=== PATIENT | male | born 1960 | race Caucasian/White ===

== ENCOUNTER 2021-05-19 16:00 | Outpatient (CLI) | payer BC, SELFPAY ==
[2021-05-19 16:08] LABS: Bacteria 0 SEEN /hpf (None Seen); Mucous, Urine 0 SEEN /hpf (<or=2+); Red Blood Cells-Urine 0 SEEN /hpf (0-5); Squamous Epithelial Cells - UA 0 SEEN /hpf (0-5); White Blood Cells 0 SEEN /hpf (0-5)
[2021-05-19 17:55] LABS: Absolute Lymphocyte Count 3.25 X10^3/uL (0.83-4.51); Absolute Neutrophil Count 3.1 X10^3/uL (2.0-7.7); Basophil# 0.06 X10^3/uL; Basophil% 0.8 % (0-1); Eosinophils% 2.7 % (0-5); Hematocrit 46.1 % (40-54); Hemoglobin 15.7 g/dL (13.0-16.5); Lymphocyte # 3.25 X10^3/ul (0.83-4.51); Lymphocyte % 43.4 % (19-41); Mean Corp Hgb Conc 34.1 g/dL (32-36); Mean Corpuscular Volume 85.2 fL (80-94); Mean Platelet Vol. 10.2 fl (6.2-12.0); Monocyte# 0.85 X10^3/uL; Monocyte% 11.3 % (0-10); NRBC Flagged by Analyzer 0 % (0-5); Neutrophil # 3.09 X10^3/uL (2.7-7.7); Neutrophil % 41.3 % (47-70); Platelet Count 265 K/mm3 (150-450); RBC Distribution Width SD 43.1 fl (35.1-43.9); Red Blood Count 5.41 M/mm3 (4.6-6.2); White Blood Count 7.5 K/mm3 (4.4-11.0)
[2021-05-19 18:00] LABS: Color, Urine Yellow (Yellow); Glucose, Dipstick Normal (Normal); Ketone-Dipstick Negative (Negative); Leukocyte Esterase-Dipstick Negative /ul (Negative); Nitrite-Dipstick Negative (Negative); Occult Blood-Urine Negative /ul (Negative); Protein-Dipstick Negative (Negative); Urine Bilirubin Dipstick Negative (Negative); Urine Clarity Clear (Clear); Urine Urobilinogen Normal (Normal)
[2021-05-19 18:15] LABS: Hemoglobin A1c 5.6 % (3.8-5.6)
[2021-05-19 18:41] LABS: ALB/GLOB Ratio 0.9 RATIO (0.9-2.4); AST(SGOT) 21 U/L (15-37); Alanine Aminotransfer ALT/SGPT 37 U/L (16-61); Albumin, Serum 3.7 g/dL (3.2-5.0); Alkaline Phosphatase 74 U/L (45-117); Anion Gap 5 (5-15); BUN 14 mg/dL (7-18); Calcium,Total 8.8 mg/dL (8.5-10.1); Chloride 106 mmol/L (98-107); Cholesterol 165 mg/dL (200); Creatinine, Serum 0.88 mg/dL (0.70-1.30); EST Glomerular Filtration Rate 94 mL/min (>60); Est Glom Filt Rate - Afr Amer 113 mL/min (>60); Glucose 103 mg/dL (74-106); High Density Lipoprotein 38 mg/dL; Potassium 4.1 mmol/L (3.5-5.1); Protein, Total 7.7 g/dL (6.4-8.2); Sodium Level 139 mmol/L (136-145); Triglycerides 510 mg/dL
== END 2021-05-19 23:59 | disposition home or self-care (01) ==
LOC: MFPLAB 16:05
PROVIDERS: Visit Provider Family Medicine
DX: E78.5 Hyperlipidemia, unspecified (principal); E55.9 Vitamin D deficiency, unspecified; R73.02 Impaired glucose tolerance (oral)
CPT/HCPCS: 36415; 80053; 80061; 81001; 82306; 83036; 84443; 85025

== ENCOUNTER → 2021-06-10 | Outpatient (CLI) | payer BC, SELFPAY ==
--- NOTE | 2021-06-10 15:16 | CT_ITS ---
HISTORY: Nicotine dependence. Quit 2008, smoked 2 PPD 40 years, mild COPD. TECHNIQUE: Helically acquired images were obtained of the chest without contrast. A radiation dose optimization technique was used for this scan. # of images incl. paperwork: [phone]. COMPARISON: None. FINDINGS: LARGE AIRWAYS: Clear. LUNGS: Moderate emphysema with mild reticular scarring. Mild right middle lobe atelectasis. Noncalcified 5 mm right lower lobe nodule. PLEURA: No pleural effusion. HEART AND PERICARDIUM: Heart within normal limits in size. No pericardial effusion. Coronary artery calcification present. VESSELS: Thoracic aorta nondilated. MEDIASTINUM AND KELLY: No pathologically enlarged lymphadenopathy. Small calcified mediastinal lymph nodes. UPPER ABDOMEN: 2.5 cm cyst in the left hepatic lobe. BONES: Intact. CT/Low Dose CT Lung Screening IMPRESSION: 5 mm right lower lobe pulmonary nodule on a background of moderate emphysema. Lung-RADS category 2: Benign appearance. Continue annual screening with low-dose CT. Individualized dose optimization techniques were used for this CT. at 1557 Reported and signed by: Jahaira Hartley MD Electronically Signed: Jahaira Hartley MD at 15:56 EDT ,
== END | disposition home or self-care (01) ==
LOC: CT 15:13
PROVIDERS: PCP Family Medicine; Referring Provider Family Medicine; Visit Provider Family Medicine
DX: Z87.891 Personal history of nicotine dependence (principal)
CPT/HCPCS: 71271

== ENCOUNTER 2021-06-12 08:13 | Outpatient (CLI) | payer BC, SELFPAY ==
[2021-06-12 10:11] LABS: Cholesterol 149 mg/dL (200); High Density Lipoprotein 45 mg/dL; Triglycerides 98 mg/dL; Very Low Density Lipoprotein 20 mg/dL (5-40)
== END 2021-06-12 23:59 | disposition home or self-care (01) ==
LOC: MFPLAB 08:17
PROVIDERS: PCP Family Medicine; Referring Provider Family Medicine; Visit Provider Family Medicine
DX: Z00.00 Encounter for general adult medical examination without abnormal findings (principal)
CPT/HCPCS: 36415; 80061

== ENCOUNTER → 2021-07-10 | Outpatient (CLI) | payer BC, SELFPAY ==
--- NOTE | 2021-07-10 12:08 | US_ITS ---
STUDY: ULTRASOUND - URINARY BLADDER REASON FOR EXAM: Male, 61 years old. URINE RETENTION TECHNIQUE: Ultrasound evaluation of the urinary bladder was performed with real-time and static riley-scale imaging. COMPARISON: None. FINDINGS: There is no right UVJ calculus. There is a visualized right ureteral jet. There is no left UVJ calculus. There is a visualized left ureteral jet. The distended volume of the urinary bladder is 325 ml. The empty volume of the urinary bladder is 183 ml. The bladder wall is within normal limits. The bladder wall measures 3.5 mm. There is no demonstrated bladder wall mass lesion. There are no demonstrated bladder calculi. US/Post Void Residual Bladder IMPRESSION: Small to moderate post residual volume. Electronically Signed: Nasim Lozano MD at 13:51 EDT ,
== END | disposition home or self-care (01) ==
LOC: US 12:02
PROVIDERS: PCP Family Medicine; Visit Provider Family Medicine
DX: R33.9 Retention of urine, unspecified (principal)
CPT/HCPCS: 51798

== ENCOUNTER → 2021-07-15 | Outpatient (CLI) | payer BC, SELFPAY | END | disposition home or self-care (01) | LOC: LABSPEC 17:49 | PROVIDERS: PCP Family Medicine; Visit Provider Family Medicine | DX: U07.1 COVID-19 (principal) | CPT/HCPCS: 87635; U0003; U0005 ==

== ENCOUNTER → 2021-07-15 | Outpatient (CLI) | payer BC, SELFPAY ==
[2021-07-15 16:44] LABS: PSA,Total - Annual Screen 1.37 ng/mL (0.00-4.00)
== END | disposition home or self-care (01) ==
PROVIDERS: PCP Family Medicine; Referring Provider Family Medicine; Visit Provider Urology
DX: U07.1 COVID-19 (principal); Z12.5 Encounter for screening for malignant neoplasm of prostate
CPT/HCPCS: 36415; 84153; 87635; G0103; U0003; U0005

== ENCOUNTER → 2021-10-15 | Outpatient (CLI) | payer BC, SELFPAY ==
[2021-10-15 10:23] LABS: Absolute Lymphocyte Count 2.24 X10^3/uL (0.83-4.51); Absolute Neutrophil Count 2.4 X10^3/uL (2.0-7.7); Basophil# 0.05 X10^3/uL; Basophil% 0.9 % (0-1); Eosinophil# 0.14 X10^3/uL; Eosinophils% 2.6 % (0-5); Hematocrit 44.5 % (40-54); Hemoglobin 14.9 g/dL (13.0-16.5); Lymphocyte # 2.24 X10^3/ul (0.83-4.51); Lymphocyte % 41.1 % (19-41); Mean Corp Hgb Conc 33.5 g/dL (32-36); Mean Corpuscular Hgb 28.9 pg (27.0-32.0); Mean Corpuscular Volume 86.4 fL (80-94); Mean Platelet Vol. 10.1 fl (6.2-12.0); Monocyte# 0.56 X10^3/uL; Monocyte% 10.3 % (0-10); NRBC Flagged by Analyzer 0 % (0-5); Neutrophil # 2.44 X10^3/uL (2.7-7.7); Neutrophil % 44.7 % (47-70); Platelet Count 195 K/mm3 (150-450); RBC Distribution Width CV 13.7 % (11.6-14.6); RBC Distribution Width SD 43.5 fl (35.1-43.9); Red Blood Count 5.15 M/mm3 (4.6-6.2); White Blood Count 5.5 K/mm3 (4.4-11.0)
[2021-10-15 10:39] LABS: AST(SGOT) 18 U/L (15-37); Alanine Aminotransfer ALT/SGPT 29 U/L (16-61); Albumin, Serum 3.5 g/dL (3.2-5.0); Alkaline Phosphatase 70 U/L (45-117); Anion Gap 4 (5-15); BUN 11 mg/dL (7-18); BUN/Creat Ratio 11.9 RATIO (10-20); Calcium,Total 8.7 mg/dL (8.5-10.1); Chloride 110 mmol/L (98-107); Cholesterol 136 mg/dL (200); Creatinine, Serum 0.93 mg/dL (0.70-1.30); EST Glomerular Filtration Rate 87 mL/min (>60); Est Glom Filt Rate - Afr Amer 106 mL/min (>60); Globulin 3.5 g/dL (2.2-4.2); Glucose 93 mg/dL (74-106); High Density Lipoprotein 42 mg/dL; Potassium 4.1 mmol/L (3.5-5.1); Sodium Level 140 mmol/L (136-145); Triglycerides 113 mg/dL; Very Low Density Lipoprotein 23 mg/dL (5-40)
[2021-10-15 10:40] LABS: Vitamin D,25 Hydroxy 44.9 ng/mL
[2021-10-15 10:56] LABS: Hemoglobin A1c 5.7 % (3.8-5.6)
== END | disposition home or self-care (01) ==
LOC: MFPLAB 08:10
PROVIDERS: PCP Family Medicine; Referring Provider Family Medicine; Visit Provider Family Medicine
DX: E78.5 Hyperlipidemia, unspecified (principal); E55.9 Vitamin D deficiency, unspecified; R73.02 Impaired glucose tolerance (oral)
CPT/HCPCS: 36415; 80053; 80061; 82306; 83036; 85025

== ENCOUNTER 2021-12-09 05:10 | Day surgery (SDC) | payer BC, SELFPAY ==
[2021-12-09] VITALS (12 sets, daily range): BP systolic 90–136; BP diastolic 61–98; PULSE 56–66; RESP 16; TEMP 36.1–36.5; O2SAT 96–100; BMI 25.0
[2021-12-09] MEDS: Lactated Ringers 1,000 ML 15 ML IV (06:12)
--- NOTE | 2021-12-09 06:12 | HP.PCM_ITS ---
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 Luis Eduardo Delcid MD) COPD (chronic obstructive pulmonary disease) Former smoker Gastric reflux High cholesterol History of hiatal hernia Prostate disease Wears glasses Wears partial dentures Surgical History? History of esophagogastroduodenoscopy (EGD) Hx of colonoscopy Hx of inguinal hernia repair Hx of vasectomy Family History?(Updated 11/10/21 @ 14:29 by Radha Batista) Father Cancer ?? ? lung Social History Smoking Status:? Former smoker HPI HPI HPI: 61-year-old gentleman who is being referred by Dr Spencer Rahman because of the patient's history of biopsy identified Esquivel's esophagus.? Gastroesophageal reflux disease symptoms started 2016.? He has been on omeprazole therapy for approximately 4 to 5 years.? By report the patient 3 years ago in the [place] area had an upper endoscopy demonstrating a hiatal hernia and Esquivel's esophagus.? There are results from [facility] dated September 23, 2018 with the patient underwent an upper endoscopy.? Report is that multiple tertiary contractions were identified.? There is a 2 cm hiatal hernia and a mildly irregular SC junction about 3 mm tongues.? The patient also had a colonoscopy with a 3 to 4 mm flat polyp biopsied at the hepatic flexure.? Esophageal biopsy showed focal intestinal metaplasia with Esquivel's esophagus negative for dysplasia.? The colon demonstrated a serrated adenoma.? There was also a sigmoid polyp which was hyperplastic. He does not have any current complaints.? He does chronically take pantoprazole 40 mg daily.? He has been on a PPI for at least 5 years. He denies bright red blood per rectum or melena.? No abdominal pain.? He otherwise enjoys good health. ROS General General: No weight change, appetite, fatigue, colon cancer, breast cancer or weakness HEENT HEENT: No difficulty swallowing, eye injury, eye surgery, swollen glands or hoarseness Endo Endocrine: No thyroid disease, diabetes mellitus, thyroid cancer, Hair loss, heat intolerance or cold intolerance Skin Skin: No rash or changing moles Musc Musculoskeletal: No back problems, arthritis, rheumatoid arthritis, gout or joint pain Cardio Cardiovascular: No murmur, pacemaker, heart disease, atrial fibrillation, high blood pressure, heart attack, heart stent, palpitations, shortness of breat with exertion or chest pain Psych Psychiatric: No depression, anxiety or hearing voices Resp Respiratory: No shortness of breath, No sleep apnea, No cough, No COPD, No asthma, No emphysema and No wheezing Gastro Gastrointestinal: No abdominal pain, No nausea or vomiting, No diarrhea, No constipation, No blood in stool, Yes acid reflux, No hemorrhoids, No ulcers, No gallbladder problem and No black,tarry stools Bill Hematologic: No blood thinners, No blood disorders, No bleeding, No anemia and No blood clots Neuro Neurologic: No system reviewed and no additional complaints, except as documented, No as per HPI, No abnormal gait, No abnormal hearing, No abnormal movements, No abnormal speech, No behavioral changes, No burning sensations, No confusion, No convulsions, No disequilibrium, No dizziness, No localized weakness, No frequent falls, No headache(s), No lack of coordination, No loss of vision, No memory loss, No numbness, No other visual disturbances, No radicular pain, No restless legs, No sensory deficit, No syncope, No tingling, No tremor(s), No weakness and No other Exam Const General: cooperative, healthy appearing and comfortable Orientation: alert [facility] Head: normal to inspection Eyes General: appearance normal, both eyes and all related structures Neck Neck: normal visual inspection Chest Chest palpation & inspection: normal inspection of the chest Resp Effort & Inspection: normal respiratory effort Auscultation: clear to auscultation bilaterally Cardio Rate: regular rate Rhythm: regular rhythm GI Inspection: normal to inspection Palpation: soft and no hepatosplenomegaly Musc Cervical Spine: normal cervical lordosis Skin General: no rashes or lesions noted Neuro General: patient alert and patient awake Extrem General: no calf tenderness Psych Appearance: grossly normal Assessment and Plan Assessment and Plan (1) 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: ?Status:?Acute (2) Hiatal hernia: ?Status:?Acute (3) Personal history of colonic polyps: ?Status:?Acute Plan The patient was really notified that he is not yet due for routine follow-up colonoscopy for 2 more years.? His notes were reviewed reminding him he has a history of colon polyps that 2 years will need a follow-up colonoscopy He has a history of Esquivel's short segment with no dysplasia.? I recommend to him an esophagogastroduodenoscopy with biopsy.? I piquantly of I cannot accomplish this with IV sedation.? I also took the opportunity discussed with him additional treatment options.? We discussed potential surgical treatment options laparoscopic repair of his hiatal hernia and a antireflux procedure.? There is likely would mean we can get him off of his proton pump inhibitor and the potential side effects of long-term use of that medication and perhaps utilize only a H2 reginaldo.? He is aware however that there are no good long-term studies currently demonstrating efficacy.? He would need to assist in the de cision as to how important it is to him to be able to come off of his proton pump inhibitors which she has been on for at least 5 years.? He is enjoying good health and feels that he has good longevity left. He has had an opportunity to ask and have questions answered.? We will schedule proceed with the upper endoscopy and then further testing pending the patient's considerations. I appreciate the opportunity of assisting with the surgical care ?copy: Dr Spencer Delcid M.D., F.A.C.S I have re-examined the patient. There are no clinical changes since date of exam. Luis Eduardo Delcid M.D., F.A.C.S.
--- NOTE | 2021-12-09 06:30 | IMM_PTH ---
PATIENT: LIA BUSTAMANTE LOC: EN U#:[id number] AGE/SX: 61/M ROOM: RE12/09/[address]: Dr. Luis Eduardo Delcid MD : 1960 BED: DIS: 12/09/2021 SPEC #: [id number] RECD: 12/09/21 12:46 STATUS: ROBERTO REQ #: [id number] GIL: 12/09/21 06:[address]: Luis Eduardo Delcid DEPT: IMMUNOHISTOCHEMISTRY RECD BY: Bibiana Santacruz ENTERED: 12/09/21 12:47 SP TYPE: IMMUNO OTHR DR: Dr. Spencer Rahman MD Tissues: A - Stomach, NOS Procedures: H Pylori (initial) PHYSICIAN & INSTITUTION [address] [address] SPECIMEN INFORMATION: Tissue Source: A ? Antral biopsy Clinical Info: History of Esquivel?s esophagus, hiatal hernia Specimen Number: [id number] CPT code: 92088 METHODOLOGY: Deparaffinized sections of prefer/formalin-fixed tissue or PAP/DQ stained slides are incubated with monoclonal/polyclonal antibodies/oligonucleotide probes. Localization is made via biotin free immunoperoxidase method. Appropriate controls are performed and reacted as expected. Results on target cell population are indicated in the following table: RESULTS: ANTIBODY / CLONE RESULT Block A H Pylori (polyclonal) negative These tests were developed and their performance characteristics determined by [facility]. They may not have been cleared or approved by the U.S. Food and Drug Administration. The FDA has determined that such clearance or approval is not necessary. The above immunohistochemical/dualISH markers are ordered and reviewed by the Pathologist. INTERPRETATION: A. Antral biopsy: Negative for Helicobacter pylori organisms. MIKE:saul 12/10/2021
--- NOTE | 2021-12-09 06:30 | EGD_PTH ---
PATIENT: LIA BUSTAMANTE LOC: EN U#:[id number] AGE/SX: 61/M ROOM: RE12/09/[address]: Dr. Luis Eduardo Delcid MD : 1960 BED: DIS: 12/09/2021 SPEC #: [id number] RECD: 12/09/21 10:34 STATUS: ROBERTO REAimee #: [id number] GIL: 12/09/21 06:[address]: Luis Eduardo Delcid DEPT: SURGICAL PATHOLOGY RECD BY: Francisca Phillips ENTERED: 12/09/21 12:17 SP TYPE: EGD BIOPSY OT DR: Dr. Spencer Rahman MD Tissues: A - Gastric mucous membrane B - Esophagus, NOS C - Esophagus, NOS Procedures: Special Stain Group II Surgery Specimen Level IV Alcian Blue/PAS (control) HEADER OPERATION: EGD (MOD) and biopsy PRE-OP DIAGNOSIS: History of Esquivel?s esophagus, hiatal hernia TISSUE SUBMITTED: A ? Antral biopsy, H. pylori, B ? Distal esophagus biopsy, C ? Mid esophageal biopsy MICROSCOPIC DIAGNOSIS A. Antral biopsy: Mild gastritis. See microscopic description and comment. B. Distal esophagus, biopsy: Fragments of gastroesophageal mucosa with chronic inflammation and changes consistent with gastroesophageal reflux disease. Intestinal metaplasia (goblet cell metaplasia) not identified. See comment. C. Mid esophagus, biopsy: Fragments of squamous epithelium with minimal chronic inflammation. SJ:saul 12/10/2021 COMMENT A. The results of immunohistochemistry for Helicobacter pylori will be reported separately ([id number]). B. Alcian blue/PAS stain with matched control is used in the evaluation of the specimen. The specimen predominantly consists of squamous mucosa. Mild increase of eosinophils (up to 10 per high power field) are also noted suggestive of eosinophilic esophagitis. MICROSCOPIC DESCRIPTION Slides are reviewed. A. The specimen shows fragments of gastric mucosa with chronic inflammatory cell infiltrates in the lamina propria consisting of lymphocytes and plasma cells, consistent with mild chronic gastritis. GROSS DESCRIPTION A - Received in fixative is one container labeled with the patient's name and designated antral biopsy. The specimen consists of one irregular fragment of light hooker soft tissue that measures 0.3 x 0.3 x 0.1 cm. The specimen is totally submitted in one cassette. B - Received in fixative is one container labeled with the patient's name and designated distal esophagus biopsy. The specimen consists of multiple irregular fragments of light hooker soft tissue that in aggregate measure 1 x 0.8 x 0.1 cm. The specimen is totally submitted in one cassette. C - Received in fixative is one container labeled with the patient's name and designated mid esophageal biopsy. The specimen consists of two irregular fragments of light hooker soft tissue that in aggregate measure 0.5 x 0.2 x 0.1 cm. The specimen is totally submitted in one cassette. / SJ:rg 12/09/2021 TC:3 CPT: 27944 x3, 11623
--- NOTE | 2021-12-09 06:46 | OP.EGD_ITS ---
Patient Name: Tacho Bustillos Procedure Date: 12/09/2021 6:18 AM Date of : 1960 Age: 61 Procedure: Upper GI endoscopy Indications: Follow-up of Esquivel's esophagus Providers: Luis Eduardo Delcid MD Medicines: Midazolam 3.5 mg IV, Meperidine 100 mg IV Complications: No immediate complications. Procedure: Pre-Anesthesia Assessment: - Prior to the procedure, a History and Physical was performed, and patient medications and allergies were reviewed. The patient's tolerance of previous anesthesia was also reviewed. The risks and benefits of the procedure and the sedation options and risks were discussed with the patient. All questions were answered, and informed consent was obtained. Prior Anticoagulants: The patient has taken no previous anticoagulant or antiplatelet agents. ASA Grade Assessment: II - A patient with mild systemic disease. After reviewing the risks and benefits, the patient was deemed in satisfactory condition to undergo the procedure. After obtaining informed consent, the endoscope was passed under direct vision. Throughout the procedure, the patient's blood pressure, pulse, and oxygen saturations were monitored continuously. The gastroscope was introduced through the mouth, and advanced to the second part of duodenum. The upper GI endoscopy was accomplished without difficulty. The patient tolerated the procedure well. Moderate Sedation: Moderate (conscious) sedation was personally administered by the endoscopist. The following parameters were monitored: oxygen saturation, heart rate, blood pressure, and response to care. Total physician intraservice time was 15 minutes. Scope In: 6:31:07 AM Scope Out: 6:39:34 AM Total Procedure Duration Time 0 hours 8 minutes 27 seconds Findings: LA Grade A (one or more mucosal breaks less than 5 mm, not extending between tops of 2 mucosal folds) esophagitis with no bleeding was found 39 cm from the incisors. Biopsies were taken with a cold forceps for histology. The middle third of the esophagus was normal. Biopsies were taken with a cold forceps for histology. A 4 cm hiatal hernia was present. Diffuse mildly erythematous mucosa without bleeding was found in the gastric antrum. Biopsies were taken with a cold forceps for histology. The examined duodenum was normal. Impression: - LA Grade A reflux esophagitis. Biopsied. - Normal middle third of esophagus. Biopsied. - 4 cm hiatal hernia. - Erythematous mucosa in the antrum. Biopsied. - Normal examined duodenum. Recommendation: - Discharge patient to home. - Resume previous diet. - Continue present medications. - Return to my office in 1 week if desired to discuss moderately large hiatal hernia and reflux pathology Procedure Code(s): --- Professional --- 38501, Esophagogastroduodenoscopy, flexible, transoral; with biopsy, single or multiple 67625, 59, Moderate sedation services provided by the same physician or other qualified health health care marketing specialist performing the diagnostic or therapeutic service that the sedation supports, requiring the presence of an independent trained observer to assist in the monitoring of the patient's level of consciousness and physiological status; initial 15 minutes of intraservice time, patient age 5 years or older Diagnosis Code(s): --- Professional --- K21.0, Gastro-esophageal reflux disease with esophagitis K22.70, 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 K44.9, Diaphragmatic hernia without obstruction or gangrene K31.89, Other diseases of stomach and duodenum CPT copyright 2017 [employer]. All rights reserved. The codes documented in this report are preliminary and upon manager human capital review may be revised to meet current compliance requirements. Luis Eduardo Delcid MD 12/09/2021 6:45:22 AM This report has been signed electronically. Number of Addenda: 0 Note Initiated On: 12/09/2021 6:18 AM
--- NOTE | 2021-12-09 06:47 | OP.CCLET_ITS ---
12/09/2021 Spencer Rahman [address] [place] [address] Re : Upper GI endoscopy procedure for Tacho [facility] Dear Dr. Rahman This procedure was performed on Thursday, December 09, 2021. My impressions and recommendations are as follows: Impressions : - LA Grade A reflux esophagitis. Biopsied. - Normal middle third of esophagus. Biopsied. - 4 cm hiatal hernia. - Erythematous mucosa in the antrum. Biopsied. - Normal examined duodenum. Recommendations : - Discharge patient to home. - Resume previous diet. - Continue present medications. - Return to my office in 1 week if desired to discuss moderately large hiatal hernia and reflux pathology My findings are described in the full procedure note, which is enclosed. If I can be of further assistance, please feel free to contact me at Doctor phone number(s): Work: . Sincerely, Luis Eduardo Delcid MD 12/09/2021 6:45:22 AM This report has been signed electronically.
== END 2021-12-09 08:18 | disposition home or self-care (01) ==
LOC: EN 05:10 → AC 05:15
PROVIDERS: PCP Family Medicine; Referring Provider Family Medicine; Visit Provider Surgery
PROC: (CPT 43239; principal; 2021-12-09 06:25)
DX: K44.9 Diaphragmatic hernia without obstruction or gangrene (principal); K29.50 Unspecified chronic gastritis without bleeding; K21.00 Gastro-esophageal reflux disease with esophagitis, without bleeding; K31.89 Other diseases of stomach and duodenum; Z79.899 Other long term (current) drug therapy; Z87.891 Personal history of nicotine dependence; Z86.010 Personal history of colon polyps
CPT/HCPCS: 43239; 88305; 88313; 88342; 99152; 99153; J7120

== ENCOUNTER 2021-12-24 09:03 | Observation (INO) | payer BC, SELFPAY ==
--- NOTE | 2021-10-30 10:03 | EKG12_ITS ---
Test Reason : PREOP Blood Pressure : / mmHG Vent. Rate : 063 BPM Atrial Rate : 063 BPM P-R Int : 142 ms QRS Dur : 092 ms QT Int : 406 ms P-R-T Axes : 067 010 058 degrees QTc Int : 415 ms Normal sinus rhythm Normal ECG Confirmed by FIDE HO, JEANNE ([id number]), film editor supervisor JOE CHAPMAN ([id number]) on 10/31/2021 2:24:27 PM Referred By: Marcos Smith Confirmed By:CHRISTIANO ELIZALDE MD
[2021-12-24] VITALS (8 sets, daily range): BP systolic 110–134; BP diastolic 69–82; PULSE 60–75; RESP 15–18; TEMP 36.1–36.6; O2SAT 93–100; BMI 25.7
[2021-12-24] MEDS: Lactated Ringers 1,000 ML 15 ML IV (08:05)
--- NOTE | 2021-12-24 08:52 | PCM.HP.STD ---
HPI - General HPI Narrative LIA BUSTAMANTE, is a 61 M who presents for a transurethral resection of the prostate for an enlarged obstructing prostate PFSH Medical History COPD (chronic obstructive pulmonary disease) Former smoker Gastric reflux High cholesterol History of hiatal hernia Prostate disease Wears glasses Wears partial dentures Home Medications atorvastatin 10 mg tablet 10 mg PO QHS HLD 10/29/21 [History Last Taken 12/23/21] calcium carbonate 600 mg calcium (1,500 mg) tablet 600 mg PO DAILY SUPPLEMENT 10/29/21 [History Last Taken 12/23/21] pantoprazole 40 mg tablet,delayed release 40 mg PO DAILY GERD 10/29/21 [History Last Taken 12/24/21 05:00] sildenafil 50 mg tablet 50 mg PO DAILY PRN Erectile Dysfunction 10/29/21 [History Last Taken 12/23/21] Allergy/AdvReac Type Severity Reaction Status Date / Time Penicillins Allergy Rash Verified 12/24/21 07:43 Family History (Updated 11/10/21 @ 14:29 by Radha Batista) Father Cancer lung Surgical History (Updated 12/17/21 @ 10:11 by Stacia Velázquez) History of esophagogastroduodenoscopy (EGD) Hx of colonoscopy Hx of inguinal hernia repair Hx of vasectomy Social History Smoking Status: Former smoker Vital Signs Vital Signs Vital Signs: 12/24/21 07:46 12/24/21 07:47 Temperature 97.0 F L Temperature Source Temporal Pulse Rate 61 Respiratory Rate 18 Respiratory Pattern Normal Blood Pressure 110/69 Blood Pressure Mean 82 Blood Pressure Source Monitor Blood Pressure Position Semi-Fowlers Blood Pressure Location Right Arm Pulse Ox 99 Oxygen Delivery Method Room Air Weight Weight: 76.657 kg Body Mass Index (BMI) 25.7
--- NOTE | 2021-12-24 08:55 | PCM.DC ---
Discharge Instructions Diet Discharge Diet: No restrictions Follow Up Care Please Follow Up With: Marcos Smith MD Test Results: Test results from this visit will be discussed in further detail at your follow-up appointment, if applicable. Discharge Plan Admission Primary Reason for Your Visit: [facility] Attending Provider: Marcos Smith Primary Care Provider: Spencer Rahamn Instructions Patient Instructions: [facility] Recovery Discharge Orders/Prescriptions Prescriptions: New ciprofloxacin HCl [Cipro] 500 mg tablet 500 mg PO BID Qty: 14 0RF Continued sildenafil 50 mg Tablet 50 mg PO DAILY PRN (Reason: Erectile Dysfunction) Rx Instructions: administer 30 minutes to 4 hours before activity atorvastatin 10 mg Tablet 10 mg PO QHS calcium carbonate 600 mg calcium (1,500 mg) Tablet 600 mg PO DAILY pantoprazole 40 mg Tablet,Delayed Release (Dr/Ec) 40 mg PO DAILY Referrals / Follow Up: Marcos Smith MD [Med Staff - Active Staff] - Spencer Rahman MD [Primary Care Provider] - Disposition Disposition (needs filled in before D/C Order can be placed): Home, Self Care
[2021-12-24] MEDS: Cefazolin 2 GM in 0.9% Normal Saline 100 ML IV (09:15)
--- NOTE | 2021-12-24 09:50 | PROS_PTH ---
PATIENT: LIA BUSTAMANTE LOC: MS3 U#:[id number] AGE/SX: 61/M ROOM: GA319 RE12/24/[address]: Dr. Marcos Smith MD : 1960 BED: 1 DIS: 12/25/2021 SPEC #: [id number] RECD: 12/24/21 13:46 STATUS: ROBERTO GALEAS #: [id number] GIL: 12/24/21 09:[address]: Marcos Smith DEPT: SURGICAL PATHOLOGY RECD BY: Francisca Phillips ENTERED: 12/25/21 09:00 SP TYPE: TURP OTHR DR: Dr. Spencer Rahman MD Tissues: Prostate, NOS Procedures: Surgery Specimen Level IV HEADER OPERATION: Cysto, TUR prostate, [employer] PRE-OP DIAGNOSIS: Enlarged obstructing prostate TISSUE SUBMITTED: Prostate tissue MICROSCOPIC DIAGNOSIS Prostate, transurethral resection: Benign nodular hyperplasia, glandular and stromal types. Chronic inflammation. AM:saul 12/26/2021 MICROSCOPIC DESCRIPTION Slides are reviewed. GROSS DESCRIPTION Received is one container labeled with the patient's name and designated prostate tissue. The specimen consists of multiple irregular fragments of pink-hooker, rubbery, soft tissue that in aggregate weigh 6.1 gm and measure in aggregate 4 x 5 x 0.6 cm. The entire specimen is submitted in four cassettes. / AM:saul 12/25/2021 TC:3 CPT: 66461
--- NOTE | 2021-12-24 09:55 | PCM.OPRPT ---
Report of Operation Date of Procedure: 12/24/21 Pre-Operative Diagnosis: BPH obstruction with a median lobe Post-Operative Diagnosis: Same Surgery/Procedure Performed:: Transurethral section of prostate Description of Surgical Findings:: In the preoperative setting I discussed with the patient how the surgery would be done with expect afterwards. We discussed how a prostate resection is done and we discussed the risk of the surgery including, bleeding, infection, retrograde ejaculation, changes with ejaculation or intercourse,. We discussed the possibility that the resection of the prostate may not alleviate his urinary symptoms. We discussed the small risk of developing scar tissue along the urethral channel and strictures. We also discussed the chance of the prostate could grow back and he may need further surgery or treatment in the future for prostate problems. Patient was taken back to the operating room, timeout procedure was performed, he was identified and marked and placed on the operating room table. He underwent general anesthesia. He was placed in dorsolithotomy position. Penis and testicles were prepped and draped in usual sterile fashion. Went into the bladder using the visual obturator with a resectoscope. Once inside the bladder identified the right and left ureteral orifice. I then identified the prostate and the anatomy of the prostate. He had a short length prostate but very obstructed with a large median lobe protruding into the bladder and some mild bilateral hypertrophy. I marked out the area of the sphincter and the verumontanum was identified. I then proceeded with the prostate resection first resected the median lobe. And then resected the right lobe of the prostate. Then to resect the left lobe of the prostate. I then resected the apical tissue of the prostate. This was a complete resection of all obstructive tissue to improve voiding and relieve obstruction. I then made sure that there was no injury to the sphincter or the verumontanum was still intact. At the end of the resection all the chips were Ellik out of the bladder. I then identified the left and right ureteral orifice and these were confirmed to be in good position and effluxing and not injured. The resectoscope was removed, a 22 Palestinian catheter was placed into the bladder on continuous irrigation. And the urine was fairly light pink color and draining normally. He was taken back to the PACU in good condition. Surgeon: Marcos Smith Type of Anesthesia: General Drains: 22 Palestinian three-way catheter Admit VTE Documentation VTE Present on Admission: No VTE Mechan Device Prophylaxis: SCD's VTE Pharm Prophylaxis ordered?: No
--- NOTE | 2021-12-24 13:59 | CASEMGMT ---
Social Work? SW in to pt room to verify Advanced Directives. Pt confirmed has HCPOA/LW. Pt named spouse, Joann, as agent. Pt made aware these documents are not on file and that pt can bring a copy in and drop off at Medical records in future if willing to do so. Pt voiced understanding. ? FINN Deras?
[2021-12-24] MEDS: 0.9% Normal Saline 1,000 ML 125 ML IV (16:52)
[2021-12-24] MEDS: Ciprofloxacin 400 MG/200 ML BAG 200 MG IV (16:52)
[2021-12-24] MEDS: Docusate Sodium 100 MG Capsule 200 MG PO (20:58)
[2021-12-24] MEDS: Atorvastatin Calcium 10 MG Tablet PO (20:59)
[2021-12-25] VITALS: BP 110/70; PULSE 74; RESP 16; TEMP 36.6; O2SAT 95; BMI 25.7
[2021-12-25] MEDS: 0.9% Normal Saline 1,000 ML 125 ML IV (03:10)
[2021-12-25 04:00] VITALS: BP 114/69; PULSE 84; RESP 16; TEMP 36.9; O2SAT 94; BMI 25.7
[2021-12-25] MEDS: Ciprofloxacin 400 MG/200 ML BAG 200 MG IV (04:51)
--- NOTE | 2021-12-25 07:45 | PCM.PN.BLA ---
Progress Note Status post TURP urine is clear, DC Nicole and he can go home after voids.
[2021-12-25 08:03] VITALS: BP 133/85; PULSE 78; RESP 16; TEMP 36.5; O2SAT 96
[2021-12-25] MEDS: Pantoprazole Sodium 40 MG Tablet PO (09:20)
--- NOTE | 2021-12-25 09:28 | NURSING ---
Pt has voided twice since removal of flores, noted clot on first void, otherwise has not had any. IV removed, pt instructed to call for DC.
== END 2021-12-25 10:42 | disposition home or self-care (01) ==
LOC: SDC 10:21 → MS3 10:21
PROVIDERS: Admitting Provider Urology; PCP Family Medicine; Referring Provider Urology; Visit Provider Urology
PROC: (CPT 52601; principal; 2021-12-24 09:40)
DX: N40.1 Benign prostatic hyperplasia with lower urinary tract symptoms (principal); J43.9 Emphysema, unspecified; Z87.891 Personal history of nicotine dependence; E78.00 Pure hypercholesterolemia, unspecified; N13.8 Other obstructive and reflux uropathy; R33.8 Other retention of urine; R35.0 Frequency of micturition; K44.9 Diaphragmatic hernia without obstruction or gangrene; K21.9 Gastro-esophageal reflux disease without esophagitis; Z79.899 Other long term (current) drug therapy
CPT/HCPCS: 52601; 00914; 88305; 93005; 96361; 96365; 96366; 99218; 99251; J7030; J7120; G0378; G0463; J0744; J2405

== ENCOUNTER 2021-12-26 10:08 | Emergency (ER) | payer BC, SELFPAY ==
[2021-12-26 10:08] VITALS: BP 149/98; PULSE 77; RESP 16; TEMP 36.2; O2SAT 97; BMI 26.7
[2021-12-26 10:11] VITALS: BMI 26.7
--- NOTE | 2021-12-26 10:37 | EKG12_ITS ---
Test Reason : NEURO Blood Pressure : / mmHG Vent. Rate : 067 BPM Atrial Rate : 067 BPM P-R Int : 150 ms QRS Dur : 086 ms QT Int : 382 ms P-R-T Axes : 061 -10 052 degrees QTc Int : 403 ms Normal sinus rhythm Normal ECG Confirmed by AMY HO, DIANN ([id number]), deputy editor in chief JOE CHAPMAN ([id number]) on 12/29/2021 1:20:07 PM Referred By: Confirmed By:DIANN REYES MD
--- NOTE | 2021-12-26 10:37 | CT_ITS ---
STUDY: CTA HEAD AND NECK WITH CONTRAST REASON FOR EXAM: Male, 61 years old. Right facial droop RADIATION DOSAGE (If Supplied By Facility): CTDIvol = ( 31.03 ) mGy, DLP = ( 1608.68 ) mGycm TECHNIQUE: CT angiography was performed with a multi-detector CT scanner. Data acquisition was obtained from the skull base through the vertex following intravenous administration of IV 100mL Isovue-370. MIP images were reconstructed from the axial data set. Post-processing of the angiographic images was performed, with multiplanar reformation and 3D reconstruction. Individualized dose optimization techniques were used for this CT. COMPARISON: No relevant priors. FINDINGS: Normal bilateral petrous carotid arteries. Normal right cavernous carotid artery with a normal supraclinoid bifurcation. Normal left cavernous carotid artery with a normal supraclinoid bifurcation. Normal right A1 segments of the anterior cerebral artery. Normal left A1 segments of the anterior cerebral artery. Normal intact anterior communicating artery (ACOM). Normal bilateral A2 segments of the anterior cerebral arteries. Normal right M1 and M2 segments of the middle cerebral arteries, with a normal M1 bifurcation. Normal left M1 and M2 segments of the middle cerebral arteries, with a normal M1 bifurcation. Normal right posterior communicating artery (PCOM). Normal left posterior communicating artery (PCOM). Normal bilateral vertebral arteries. Normal basilar artery with a normal basilar bifurcation. The visualized bilateral superior cerebellar (SCA) arteries are normal. Normal bilateral P1, P2 and visualized P3 segments of the posterior cerebral arteries. There is no demonstrated aneurysm of the [place]. Mild degree of cerebral atrophy. AORTIC ARCH: Normal visualized aortic arch. Normal origins of the brachiocephalic, left common carotid, and left subclavian arteries. RIGHT CAROTID ARTERIES: Normal right common carotid artery (CCA). Normal right common carotid bulb. Normal origin of the right internal carotid (ICA) artery without a hemodynamically significant stenosis. Normal visualized cervical portion of the right internal carotid artery. Normal origin of the right external carotid artery (ECA). LEFT CAROTID ARTERIES: Normal left common carotid artery (CCA). Normal left common carotid bulb. Normal origin of the left internal carotid (ICA) artery without a hemodynamically significant stenosis. Normal visualized cervical portion of the left internal carotid artery. Normal origin of the left external carotid artery (ECA). VERTEBRAL ARTERIES: Normal bilateral vertebral arteries. CT/CTA Head AND Neck W/ Contrast IMPRESSION: Normal CTA Head and neck with contrast. Electronically Signed: Nasim Lozano MD at 11:59 EDT ,
--- NOTE | 2021-12-26 10:38 | EDS_ITS ---
HPI History of Present Illness Chief Complaint: Neuro S/Sx Detail of Chief Complaint: Facial droop Informant: patient and spouse/S.O. Onset/Context/Timing Onset: Yesterday Context: Gradual Onset Timing: Continuous Quality and Location: Positive for Right Facial Droop Current Severity: Mild Maximum Severity: Mild Associated Symptoms Associated Symptoms: Positive for Headache; Negative for Nausea, Vomiting or Chest Pain Narrative Narrative: 61-year-old male history of BPH had TURP procedure done on Wednesday stayed overnight here in the hospital was discharged on . Yesterday around 2 PM started noticing some right-sided facial droop. Mild headache. No falls or trauma. No blood thinners. No prior history. No trouble walking. No weakness or numbness in his arms or legs. No prior history of Cortez's palsy. No prior history of stroke or mini stroke. Denies any other symptoms or complaints. Prior similar symptoms: No Recent Illness/Hospitalization: No PFSH PFSH Medical History COPD (chronic obstructive pulmonary disease) Former smoker Gastric reflux High cholesterol History of hiatal hernia Prostate disease Wears glasses Wears partial dentures Home Medications atorvastatin 10 mg tablet 10 mg PO QHS HLD 10/29/21 [History Last Taken 12/23/21] calcium carbonate 600 mg calcium (1,500 mg) tablet 600 mg PO DAILY SUPPLEMENT 10/29/21 [History Last Taken 12/23/21] pantoprazole 40 mg tablet,delayed release 40 mg PO DAILY GERD 10/29/21 [History Last Taken 12/24/21 05:00] sildenafil 50 mg tablet 50 mg PO DAILY PRN Erectile Dysfunction 10/29/21 [History Last Taken 12/23/21] ciprofloxacin HCl 500 mg tablet (Cipro) 500 mg PO BID #14 tabs 12/24/21 [Rx Last Taken Unknown] acyclovir 800 mg tablet 800 mg PO 5X/DAY #35 tabs 12/26/21 [Rx Last Taken Unknown] prednisone 20 mg tablet 40 mg PO DAILY 7 days #14 tabs 12/26/21 [Rx Last Taken Unknown] Allergy/AdvReac Type Severity Reaction Status Date / Time Penicillins Allergy Rash Verified 12/24/21 07:43 Family History Father Cancer lung Surgical History History of esophagogastroduodenoscopy (EGD) Hx of colonoscopy Hx of inguinal hernia repair Hx of vasectomy Social History Smoking Status: Former smoker ROS ROS ED ROS Narrative Right facial droop. Review of Systems ROS Unobtainable: Denies due to encephalopathy Constitutional Constitutional ED: Denies chills or fever(s) Eyes Eyes: Denies blurry vision Cardiovascular Cardiovascular: Denies chest pain Respiratory/Chest Respiratory/Chest: Denies cough or dyspnea Gastrointestinal Gastrointestinal: Denies abdominal pain Genitourinary Genitourinary ED: Denies dysuria or hematuria Musculoskeletal Musculoskeletal: Denies arthralgias Integumentary Denies abscess Neurologic Neurologic: Reports headache(s) Psychiatric Psychiatric: Denies anxiety Endocrine Endocrinology: Denies polydipsia Hematologic/Lymphatic Hematologic/Lymphatic: Denies easy bleeding Allergic/Immunologic Allergic/Immunologic ED: Denies mouth swelling or urticaria EXAM Physical Exam Narrative Exam Narrative: 61-year-old male vital signs stable afebrile. H EENT exam pupils round reactive light his motions are intact. Pupils about 2 mm bilaterally. He has trouble closing his right eye compared to the left. Forehead is spared. He can wrinkle either side. He has a right facial droop. Tongue midline. TMs normal. No [place]. Neck nontender no lymphadenopathy. Lungs clear. Heart regular rhythm rate about 77 no murmur. Chest wall nontender. Abdomen soft nontender. Moving all 4 extremities. 5 out of 5 repairer and checker strength. Dorsi plantarflexion intact. Fingertip to nose within normal limits. No drift of the arms or legs. He got up and ambulated to the bathroom without any difficulty. Neurologic exam other than right facial droop and weakness closing his right is normal. NIH score is 1. Normal motor strength, sensation and dexterity to his upper and lower extremities. Const Vital Signs: 12/26/21 10:08 Temperature 97.2 F L Temperature Source Oral Pulse Rate 77 Respiratory Rate 16 Blood Pressure 149/98 H Blood Pressure Mean 115 Pulse Ox 97 Oxygen Delivery Method Room Air Positive well nourished and well developed; Negative for obese, cachectic, contractures or unkempt General Appearance ED: well developed and NAD; Negative for unkempt, cachectic or contractures Nutritional Appearance: Negative for cachectic or obese HEENT Reports TM's clear and moist mucous membranes; Denies dry mucous membranes atraumatic; Negative for trauma Nose: Negative for other Tympanic Membrane ED: Yes TM's clear Mouth ED: No dry mucous membranes Mouth: No dry mucous membranes Eyes PERRL and EOMs intact bilaterally General Eye ED: Negative for pale conjunctiva or scleral icterus Neck no lymphadenopathy, supple and no JVD General: Negative for tenderness Thyroid: Negative for other Chest Wall inspection of chest normal and palpation of chest normal Chest: Negative for other Resp normal respiratory effort and clear to auscultation bilaterally Effort and Inspection: Negative for retractions Auscultation: Negative for rales, rhonchi or wheezes Cardio no murmurs Rate: regular rate; Negative for bradycardia or tachycardic Rhythm: regular rhythm; Negative for abnormal rhythm Heart Sounds: S1 normal and S2 normal GI normal to inspection, nondistended, normoactive bowel sounds, soft to palpation, non-tender, non-distended and no masses Inspection: Negative for abdominal distention Auscultation: normoactive bowel sounds Palpation: Negative for tender or guarding Back/Spine no CVA tenderness General Back: Negative for CVA tenderness Cervical Spine: Negative for cervical spine tenderness Thoracic Spine / Upper Back: Negative for thoracic spinal tenderness Lumbar Spine / Lower Back: Negative for lumbar spinal tenderness Extremity normal to inspection General Extremety ED: Negative for deformity or edema General Extremity: Negative for deformity or edema Neuro oriented x3 Sensorium / Orientation: alert, oriented to person, oriented to place and orie nted to time; Negative for orientation impaired, confused, lethargic or stuporous Speech: speech normal Gait (Neuro): normal gait Motor Exam: strength 5/5 throughout Psych mental status grossly normal Appearance: Negative for unkempt Attitude: No agitated Mood & Affect: Negative for depressed, anxious or tearful Skin no wounds General Skin Exam: Negative for jaundice Lesions: no lesions Rashes: no rashes Trauma: Negative for abrasion NIHSS NIHSS Initial: 1a Level of Consciousness: 0 1c LOC Commands (Only score 1st attempt): 0 2 Best Gaze (If aphasic, use reflexive mvmts.): 0 3 Visual: 0 4 Facial Palsy: 1 5 Motor Arm Right (UN = amputation/fusion): 0 5 Motor Arm Left: 0 6 Motor Leg Right: 0 6 Motor Leg Left: 0 7 Limb ataxia (Only + if out of proportion): 0 8 Sensory (Aphasia/stupor=0 or 1, coma=2): 0 9 Best Language: 0 10 Dysarthria (mute, coma=2, intubated=UN): 0 11 Extinction and Inattention (only scored if +): 0 Total Score: 1 MDM MDM MDM Narrative Medical decision making narrative: 61-year-old male with right facial droop and trouble closing his right eye since yesterday. Is sparing of his right forehead. He has normal motor strength and sensation and dexterity of both upper and lower extremities. He ambulates difficulty. 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 He will undergo a stroke work-up. CTA of the head and neck. Repeat exam patient doing well at 12:50 PM. Exam unchanged. We went over all his test results. 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 Placed on prednisone 40 mg a day for 1 week. First dose given in ER. Placed on acyclovir for 1 week. Follow-up with his primary care physician Dr. Spencer Cooper in 1 to 2 weeks. Lab Data Attestation: I reviewed the patient's lab results. Lab results narrative: CBC normal. White count 6.6. H&H of 15.8 and 46. Electrolytes unremarkable gap is 6 normal BUN/creatinine. Normal liver enzymes. Glucose 103. CTA head neck normal. Labs: Laboratory Results - last 24 hr 12/26/21 12/26/21 12/26/21 10:43 10:43 10:45 WBC 6.6 RBC 5.37 Hgb 15.8 Hct 46.0 MCV 85.7 MCH 29.4 MCHC 34.3 RDW Std Deviation 43.3 RDW Coeff of Anil 13.9 Plt Count 196 MPV 9.6 Immature Gran % (Auto) 0.300 Neut % (Auto) 60.1 Lymph % (Auto) 27.5 Emmet % (Auto) 9.2 Eos % (Auto) 2.3 Baso % (Auto) 0.6 Absolute Neuts (auto) 4.0 Absolute Lymphs (auto) 1.82 Nucleated RBC % 0 Sodium 143 Potassium 4.1 Chloride 108 H Carbon Dioxide 29.0 Anion Gap 6 BUN 10 Creatinine 0.88 Estim Creat Clear Calc 83.13 Est GFR (MDRD) Af Amer 112 Est GFR (MDRD) Non-Af 92 BUN/Creatinine Ratio 11.3 Glucose 103 Calcium 9.5 Total Bilirubin 0.50 AST 14 L ALT 22 Alkaline Phosphatase 70 Total Protein 7.3 Albumin 3.5 Globulin 3.8 Albumin/Globulin Ratio 0.9 POC Glucose 110 H Radiography Diagnostic Testing: Clinical Impression(s) from Imaging Studies Head/Neck CTA 12/26/21 10:37 IMPRESSION: Normal CTA Head and neck with contrast. Electronically Signed: Nasim Lozano MD at 11:59 EDT , Rhythm Strip Rhythm Strip: Sinus Rhythm Rate: 67 Ectopy: None EKG Initial EKG: Attestation: I personally reviewed and interpreted this EKG as follows: Interpretation: Sinus Rhythm and No Acute Injury Pattern Comments: Normal sinus rhythm rate of 67 no acute signs of MS or ischemia. Discharge Plan Triage Chief Complaint: Neuro S/Sx ED Provider: Jakub Cristobal Dx/Rx/DC Orders Clinical Impression: Cortez's palsy Instructions: Cortez's Palsy Prescriptions: New prednisone 20 mg tablet 40 mg PO DAILY 7 Days Qty: 14 0RF acyclovir 800 mg tablet 800 mg PO 5X/DAY Qty: 35 0RF No Action sildenafil 50 mg Tablet 50 mg PO DAILY PRN (Reason: Erectile Dysfunction) Rx Instructions: administer 30 minutes to 4 hours before activity atorvastatin 10 mg Tablet 10 mg PO QHS calcium carbonate 600 mg calcium (1,500 mg) Tablet 600 mg PO DAILY pantoprazole 40 mg Tablet,Delayed Release (Dr/Ec) 40 mg PO DAILY ciprofloxacin HCl [Cipro] 500 mg tablet 500 mg PO BID Qty: 14 0RF Primary Care Provider: Spencer Rahman Referrals: Spencer Rahman MD [Primary Care Provider] - 1-2 Weeks Activity Restrictions/Additional Instructions: Resume daily for 7 days start tomorrow. Acyclovir 5 times a day till gone. Tape your right eye closed at night to keep it from drying out or causing an ulcer. Artificial tears to help it from drying out. 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 This should progressively improve over the next 1 to 2 weeks. Sometimes it takes longer to resolve. Follow-up with your doctor as needed. Disposition Disposition: Home, Self Care
[2021-12-26 10:53] LABS: Absolute Lymphocyte Count 1.82 X10^3/uL (0.83-4.51); Basophil# 0.04 X10^3/uL; Basophil% 0.6 % (0-1); Eosinophil# 0.15 X10^3/uL; Eosinophils% 2.3 % (0-5); Hemoglobin 15.8 g/dL (13.0-16.5); Lymphocyte # 1.82 X10^3/ul (0.83-4.51); Lymphocyte % 27.5 % (19-41); Mean Corp Hgb Conc 34.3 g/dL (32-36); Mean Corpuscular Hgb 29.4 pg (27.0-32.0); Mean Corpuscular Volume 85.7 fL (80-94); Mean Platelet Vol. 9.6 fl (6.2-12.0); Monocyte# 0.61 X10^3/uL; Monocyte% 9.2 % (0-10); NRBC Flagged by Analyzer 0 % (0-5); Neutrophil # 3.97 X10^3/uL (2.7-7.7); Neutrophil % 60.1 % (47-70); Platelet Count 196 K/mm3 (150-450); RBC Distribution Width CV 13.9 % (11.6-14.6); RBC Distribution Width SD 43.3 fl (35.1-43.9); Red Blood Count 5.37 M/mm3 (4.6-6.2); White Blood Count 6.6 K/mm3 (4.4-11.0)
[2021-12-26 11:05] LABS: Bedside Glucose 110 mg/dL (74-106)
[2021-12-26 11:10] LABS: ALB/GLOB Ratio 0.9 RATIO (0.9-2.4); AST(SGOT) 14 U/L (15-37); Alanine Aminotransfer ALT/SGPT 22 U/L (16-61); Albumin, Serum 3.5 g/dL (3.2-5.0); Alkaline Phosphatase 70 U/L (45-117); Anion Gap 6 (5-15); BUN 10 mg/dL (7-18); BUN/Creat Ratio 11.3 RATIO (10-20); Calcium,Total 9.5 mg/dL (8.5-10.1); Chloride 108 mmol/L (98-107); Creatinine, Serum 0.88 mg/dL (0.70-1.30); EST Glomerular Filtration Rate 92 mL/min (>60); Est Glom Filt Rate - Afr Amer 112 mL/min (>60); Estimated Creatinine Clearance 83.13 ml/min; Globulin 3.8 g/dL (2.2-4.2); Glucose 103 mg/dL (74-106); Potassium 4.1 mmol/L (3.5-5.1); Protein, Total 7.3 g/dL (6.4-8.2); Sodium Level 143 mmol/L (136-145)
[2021-12-26] MEDS: predniSONE 20 MG Tablet 40 MG PO (13:10)
[2021-12-26 13:14] VITALS: BP 138/74; PULSE 79; RESP 16; O2SAT 98
== END 2021-12-26 13:15 | disposition home or self-care (01) ==
PROVIDERS: Emergency Provider Emergency Medicine; PCP Family Medicine; Visit Provider Emergency Medicine
DX: G51.0 Bell's palsy (principal); E78.00 Pure hypercholesterolemia, unspecified; K21.9 Gastro-esophageal reflux disease without esophagitis; Z87.891 Personal history of nicotine dependence; Z79.899 Other long term (current) drug therapy
CPT/HCPCS: 70496; 70498; 80053; 82962; 85025; 93005; 99283; Q9967

== ENCOUNTER → 2022-04-22 | Outpatient (CLI) | payer BC, SELFPAY ==
[2022-04-22 10:11] LABS: Absolute Lymphocyte Count 2.27 X10^3/uL (0.83-4.51); Absolute Neutrophil Count 2.9 X10^3/uL (2.0-7.7); Basophil# 0.04 X10^3/uL; Basophil% 0.7 % (0-1); Eosinophil# 0.16 X10^3/uL; Eosinophils% 2.7 % (0-5); Hemoglobin 15.4 g/dL (13.0-16.5); Lymphocyte # 2.27 X10^3/ul (0.83-4.51); Lymphocyte % 37.8 % (19-41); Mean Corp Hgb Conc 33.5 g/dL (32-36); Mean Corpuscular Hgb 28.6 pg (27.0-32.0); Mean Corpuscular Volume 85.3 fL (80-94); Mean Platelet Vol. 9.8 fl (6.2-12.0); Monocyte# 0.59 X10^3/uL; Monocyte% 9.8 % (0-10); NRBC Flagged by Analyzer 0 % (0-5); Neutrophil # 2.92 X10^3/uL (2.7-7.7); Neutrophil % 48.7 % (47-70); Platelet Count 185 K/mm3 (150-450); RBC Distribution Width CV 13.3 % (11.6-14.6); RBC Distribution Width SD 41.1 fl (35.1-43.9); Red Blood Count 5.39 M/mm3 (4.6-6.2)
[2022-04-22 10:56] LABS: ALB/GLOB Ratio 1.1 RATIO (0.9-2.4); AST(SGOT) 19 U/L (15-37); Alanine Aminotransfer ALT/SGPT 25 U/L (16-61); Albumin, Serum 3.6 g/dL (3.2-5.0); Alkaline Phosphatase 63 U/L (45-117); Anion Gap 7 (5-15); BUN 16 mg/dL (7-18); BUN/Creat Ratio 18.5 RATIO (10-20); Calcium,Total 9.1 mg/dL (8.5-10.1); Chloride 107 mmol/L (98-107); Cholesterol 161 mg/dL (200); Creatinine, Serum 0.86 mg/dL (0.70-1.30); EST Glomerular Filtration Rate 95 mL/min (>60); Est Glom Filt Rate - Afr Amer 115 mL/min (>60); Globulin 3.3 g/dL (2.2-4.2); Glucose 95 mg/dL (74-106); High Density Lipoprotein 43 mg/dL; Potassium 3.8 mmol/L (3.5-5.1); Protein, Total 6.9 g/dL (6.4-8.2); Sodium Level 140 mmol/L (136-145); Triglycerides 138 mg/dL; Very Low Density Lipoprotein 28 mg/dL (5-40)
[2022-04-22 10:58] LABS: Hemoglobin A1c 5.7 % (3.8-5.6)
== END | disposition home or self-care (01) ==
LOC: MFPLAB 08:24
PROVIDERS: PCP Family Medicine; Referring Provider Family Medicine; Visit Provider Family Medicine
DX: K21.9 Gastro-esophageal reflux disease without esophagitis (principal); E55.9 Vitamin D deficiency, unspecified; E78.5 Hyperlipidemia, unspecified; R73.02 Impaired glucose tolerance (oral)
CPT/HCPCS: 36415; 80053; 80061; 82306; 83036; 85025

== ENCOUNTER → 2022-11-24 | Outpatient (CLI) | payer BC, SELFPAY ==
[2022-11-24 10:07] LABS: Absolute Lymphocyte Count 2.16 X10^3/uL (0.83-4.51); Absolute Neutrophil Count 2.6 X10^3/uL (2.0-7.7); Basophil# 0.05 X10^3/uL; Basophil% 0.9 % (0-1); Eosinophil# 0.14 X10^3/uL; Eosinophils% 2.5 % (0-5); Hematocrit 46.9 % (40-54); Hemoglobin 15.3 g/dL (13.0-16.5); Lymphocyte # 2.16 X10^3/ul (0.83-4.51); Lymphocyte % 38.9 % (19-41); Mean Corp Hgb Conc 32.6 g/dL (32-36); Mean Corpuscular Hgb 28.9 pg (27.0-32.0); Mean Corpuscular Volume 88.5 fL (80-94); Mean Platelet Vol. 10.2 fl (6.2-12.0); Monocyte# 0.57 X10^3/uL; Monocyte% 10.3 % (0-10); NRBC Flagged by Analyzer 0 % (0-5); Neutrophil # 2.62 X10^3/uL (2.7-7.7); Neutrophil % 47.2 % (47-70); Platelet Count 193 K/mm3 (150-450); RBC Distribution Width CV 13.6 % (11.6-14.6); RBC Distribution Width SD 44.1 fl (35.1-43.9); White Blood Count 5.6 K/mm3 (4.4-11.0)
[2022-11-24 10:37] LABS: Vitamin D,25 Hydroxy 42.8 ng/mL
[2022-11-24 10:44] LABS: AST(SGOT) 11 U/L (15-37); Alanine Aminotransfer ALT/SGPT 25 U/L (16-61); Albumin, Serum 3.5 g/dL (3.2-5.0); Alkaline Phosphatase 64 U/L (45-117); Anion Gap 3 (5-15); BUN 12 mg/dL (7-18); BUN/Creat Ratio 13.9 RATIO (10-20); Calcium,Total 8.8 mg/dL (8.5-10.1); Chloride 110 mmol/L (98-107); Cholesterol 136 mg/dL (200); Creatinine, Serum 0.86 mg/dL (0.70-1.30); EST Glomerular Filtration Rate 95 mL/min (>60); Est Glom Filt Rate - Afr Amer 115 mL/min (>60); Globulin 3.6 g/dL (2.2-4.2); Glucose 99 mg/dL (74-106); High Density Lipoprotein 47 mg/dL; Potassium 4.8 mmol/L (3.5-5.1); Protein, Total 7.1 g/dL (6.4-8.2); Sodium Level 140 mmol/L (136-145); Triglycerides 78 mg/dL; Very Low Density Lipoprotein 16 mg/dL (5-40)
[2022-11-24 11:15] LABS: Hemoglobin A1c 5.5 % (3.8-5.6)
== END | disposition home or self-care (01) ==
LOC: MFPLAB 08:26
PROVIDERS: PCP Family Medicine; Visit Provider Family Medicine
DX: E55.9 Vitamin D deficiency, unspecified (principal); R73.02 Impaired glucose tolerance (oral); E78.5 Hyperlipidemia, unspecified
CPT/HCPCS: 36415; 80053; 80061; 82306; 83036; 85025

== ENCOUNTER → 2023-06-09 | Outpatient (CLI) | payer BC, SELFPAY ==
[2023-06-09 12:23] LABS: Hematocrit 45.5 % (40-54); Hemoglobin 15.2 g/dL (13.0-16.5); Mean Corp Hgb Conc 33.4 g/dL (32-36); Mean Corpuscular Hgb 28.6 pg (27.0-32.0); Mean Corpuscular Volume 85.7 fL (80-94); Mean Platelet Vol. 10.2 fl (6.2-12.0); Platelet Count 190 K/mm3 (150-450); RBC Distribution Width CV 13.5 % (11.6-14.6); RBC Distribution Width SD 41.8 fl (35.1-43.9); Red Blood Count 5.31 M/mm3 (4.6-6.2)
[2023-06-09 13:09] LABS: Hemoglobin A1c 5.6 % (3.8-5.6)
[2023-06-09 13:16] LABS: ALB/GLOB Ratio 1.1 RATIO (0.9-2.4); AST(SGOT) 20 U/L (15-37); Alanine Aminotransfer ALT/SGPT 30 U/L (16-61); Albumin, Serum 3.5 g/dL (3.2-5.0); Alkaline Phosphatase 66 U/L (45-117); Anion Gap 4 (5-15); BUN 15 mg/dL (7-18); BUN/Creat Ratio 15.7 RATIO (10-20); Chloride 111 mmol/L (98-107); Cholesterol 131 mg/dL (200); Creatinine, Serum 0.96 mg/dL (0.70-1.30); EST Glomerular Filtration Rate 84 mL/min (>60); Est Glom Filt Rate - Afr Amer 101 mL/min (>60); Globulin 3.2 g/dL (2.2-4.2); Glucose 100 mg/dL (74-106); High Density Lipoprotein 40 mg/dL; PSA,Total - Annual Screen 0.61 ng/mL (0.00-4.00); Potassium 4.2 mmol/L (3.5-5.1); Protein, Total 6.7 g/dL (6.4-8.2); Sodium Level 141 mmol/L (136-145); Triglycerides 118 mg/dL; Very Low Density Lipoprotein 24 mg/dL (5-40)
== END | disposition home or self-care (01) ==
LOC: LAB.FUTURE 09:49
PROVIDERS: PCP Family Medicine; Visit Provider Family Medicine
DX: R33.9 Retention of urine, unspecified (principal); R73.02 Impaired glucose tolerance (oral); E78.5 Hyperlipidemia, unspecified
CPT/HCPCS: 36415; 80053; 80061; 83036; 84153; 85027; G0103

== ENCOUNTER → 2023-07-08 | Outpatient (CLI) | payer MEDICARE, SELFPAY ==
--- NOTE | 2023-07-08 07:00 | CT_ITS ---
HISTORY: history of tobacco use. TECHNIQUE: Helically acquired images were obtained of the chest without contrast. A radiation dose optimization technique was used for this scan. 812 images. COMPARISON: 06/10/2021. FINDINGS: LARGE AIRWAYS: Patent. LUNGS: Moderate emphysema with mild scarring. Small calcified granuloma in the right apex again seen. Unchanged 5 mm noncalcified right lower lobe nodule. PLEURA: No pneumothorax or significant pleural effusion. HEART/PERICARDIUM: Heart within normal limits in size with mild coronary artery calcification. No pericardial effusion. VESSELS: Thoracic aorta nondilated. Mild atherosclerosis. MEDIASTINUM/KELLY: Small calcified mediastinal lymph nodes again seen. UPPER ABDOMEN: Stable 2.6 cm left hepatic cyst. BONES: Degenerative change. CT/Low Dose CT Lung Screening IMPRESSION: No significant interval change. Lung-RADS category 2: Continue annual screening with low dose CT. Electronically Signed: Jahaira Hartley MD at 8:58 EDT ,
--- NOTE | 2023-07-08 07:00 | AAAS_ITS ---
Reason For Study: AAA screening Aorta Measurements Aorta Doppler Measurements Proximal aorta measures1.99 x 1.9cm. in cross- Peak systolic flow velocities within the proximal sectional axis. aorta measure 68.7 cm/sec. Proximal aorta measures1.99cm. in longitudinal Peak systolic flow velocities within the mid aorta axis. measure 56.0 cm/sec. Mid aorta measures1.67 x 1.69cm. in cross- Peak systolic flow velocities within the distal sectional axis. aorta measure 68.7 cm/sec. Mid aorta measures1.66cm. in longitudinal axis. Distal aorta measures1.74 x 1.85cm. in cross- sectional axis. Distal aorta measures1.75cm. in longitudinal axis. Left Iliac Artery Left iliac artery measures .74 x .8 cm. in the cross-sectional axis. Left iliac artery measures .91 cm. in the longitudinal axis. Peak systolic velocity in the left iliac artery measures 106.7 cm/sec. Right Iliac Artery Right iliac artery measures .74 x .85 cm. in the cross-sectional axis. Right iliac artery measures .85 cm. in the longitudinal axis. Peak systolic velocity in the right iliac artery measures 99.5 cm/sec. Procedure Aorta IVC Iliac vasculature or bypass grafts [id number]. The exam was diagnostic. Exam performed in department. VL/AAA Screening Interpretation Summary Maximal aortic dimension proximally at 1.99 x 1.9 cm in diameter which is monae l. Normal aortic flow velocities. Normal left common iliac artery at 0.74 x 0.8 cm Normal right common iliac artery at 0.74 x 0.85 cm Ordering Physician: Spencer Rahman Referring Physician: Spencer Rahman Performed By: Gianfranco Jerry RVT
== END | disposition home or self-care (01) ==
PROVIDERS: PCP Family Medicine; Referring Provider Family Medicine; Visit Provider Family Medicine
DX: Z13.6 Encounter for screening for cardiovascular disorders (principal); Z87.891 Personal history of nicotine dependence
CPT/HCPCS: 71271; 76706

== ENCOUNTER 2023-12-23 08:00 | Day surgery (SDC) | payer MEDICARE, SELFPAY ==
[2023-12-23] VITALS (7 sets, daily range): BP systolic 92–128; BP diastolic 66–81; PULSE 61–71; RESP 16; TEMP 36–36.2; O2SAT 94–99; BMI 26.0
--- NOTE | 2023-12-23 08:08 | HP.PCM_ITS ---
HPI - General General Date of Admission: 12/23/23 Date of Service: 12/23/23 Chief Complaint: Surveillance colonoscopy HPI Narrative LIA BUSTAMANTE, is a 63 M who presents today for surveillance colonoscopy. He had a colonoscopy back in 2019 in [facility]. He did have adenomatous polyps at that time. He also has a past medical history of gastroesophageal reflux disease complicated by Esquivel's esophagus on PPI therapy, hypertension, hyperlipidemia currently controlled with medical therapy. 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) COPD (chronic obstructive pulmonary disease) Wears glasses Wears partial dentures Prostate disease High cholesterol History of hiatal hernia Gastric reflux Former smoker Home Medications ?Medication ?Instructions ?Recorded ?Last Taken ?Type atorvastatin 10 mg tablet 10 mg PO QHS HLD 10/29/21 12/23/21 History calcium carbonate 600 mg PO DAILY SUPPLEMENT 10/29/21 12/23/21 History pantoprazole 40 mg tablet,delayed 40 mg PO DAILY GERD 10/29/21 12/24/21 05:00 History release sildenafil 50 mg tablet 50 mg PO DAILY PRN Erectile 10/29/21 12/23/21 History Dysfunction Allergy/AdvReac Type Severity Reaction Status Date / Time Penicillins Allergy Rash Verified 12/22/23 08:21 Family History Father Cancer lung Surgical History (Updated 12/22/23 @ 08:25 by Kaitlin Rodriguez) Hx of transurethral resection of prostate History of esophagogastroduodenoscopy (EGD) Hx of colonoscopy Hx of inguinal hernia repair Hx of vasectomy Social History (Updated 11/16/23 @ 12:40 by Maribel Sinclair) household members: spouse current occupational status: retired Smoking Status: Former smoker substance use type: does not use ROS Review of Systems ROS Unobtainable: other Constitutional Constitutional: Denies fatigue, fever(s), poor appetite, weight gain or weight loss ENT HEENT: Denies mouth lesions Cardiovascular Cardiovascular: Denies abdominal bloating, abdominal edema or abdominal pain Respiratory/Chest Respiratory/Chest: Denies change in mental status, change in phlegm color, chest congestion or chest tightness Gastrointestinal Gastrointestinal: Denies belching, bloating, change in bowel habits, change in stool character, chewing difficulty, coffee ground emesis, constipation, cramping, diarrhea, dyspepsia, dysphagia, early satiety, excessive flatus, fecal incontinence, heartburn, hematemesis, hematochezia, hemorrhoids, loose stools, melena, nausea, odynophagia, rectal bleeding, tenesmus, vomiting or weight changes Genitourinary Genitourinary: Denies abdominal discomfort, burning urination or itching Musculoskeletal Musculoskeletal: Reports as per HPI; Denies muscle weakness or myalgias Integumentary Integumentary: Denies jaundice Neurologic Neurologic: Denies lack of coordination or weakness Psychiatric Psychiatric: Denies confusion, depression, memory loss, mood swings, paranoia or suicidal ideation Endocrine Endocrinology: Denies systems reviewed and no addt'l complaints, except as documented Hematologic/Lymphatic Hematologic/Lymphatic: Denies anemia, easy bleeding, easy bruising or lymphadenopathy Allergic/Immunologic Allergic/Immunologic: Denies systems reviewed and no addt'l complaints, except as documented Physical Exam Const alert General Appearance: cooperative Orientation / Consciousness: oriented to person HEENT hearing grossly normal bilaterally Head and Scalp: normal to inspection Face and Sinus: face symmetric Nose: external nose normal Mouth: oral and palatal mucosa normal Eyes conjunctivae normal General Eye: normal appearance of both eyes Neck full ROM General: normal visual inspection Lymph Lymphatic: no lymphadenopathy noted Chest inspection of chest normal and palpation of chest normal Chest: symmetrical chest wall rise Resp normal respiratory effort Effort and Inspection: able to speak in complete sentences Cardio regular rate GI non-distended Percussion: normal to percussion Rectal Exam: deferred Neuro Speech: speech normal Gait (Neuro): normal gait Assessment & Plan Assessment/Plan (1) Personal history of colonic polyps: PLAN: He will undergo surveillance colonoscopy. He was explained alternatives, risk, benefits include not withstanding bleeding, infection, sepsis, perforation, need for emergent urgent . He will have an ASA of 3.
--- OUTSIDE RECORDS SUMMARY | 2023-12-23 08:22 | XMS RPT_ITS | CCD ---
Author Organization [facility] Care Team Providers Care Accounting Specialist Name Role Phone RITCHIE RODRIGUEZ Primary Care Unavailable COONNARA Referring Unavailable RITCHIE RODRIGUEZ Primary Care Unavailable FRITZ COONN Referring Unavailable RITCHIE RODRIGUEZ Primary Care Unavailable COON, NARA Referring Unavailable FRITZ COONN Referring Unavailable RITCHIE RODRIGUEZ Primary Care Unavailable SALBADOR CHEATHAM MD Attending Unavailable SALBADOR CHEATHAM MD Primary Care Unavailable SALBADOR CHEATHAM MD Admitting Unavailable Results Test Name Value Interpretation Reference Range Facility EMERGENCY REPORTon 1 EMERGENCY REPORT [facility] EMERGENCY ROOM REPORT NAME ACCOUNT SEX AGE ADMIT DISCHARGE PT MED. RECORD# NUMBER DATE DATE TYPE DIANNA [id number] M 61 02/07/21 02/07/21 3 LIA Viveros [id number] ROOM: ER DATE OF : 1960 DICTATING PHYSICIAN: Adele Jordan CHIEF COMPLAINT/HISTORY OF PRESENT ILLNESS: The patient is a 61-year-old male with no pertinent past medical history presenting to the emergency department for evaluation of chills, myalgias, for the last 8 days. Recently COVID positive outpatient this past Wednesday along with his . Patient endorses shortness of breath and difficulty breathing for the last 2 days. Patient has no history of DVT/PE, recent immobilization, recent travel, unilateral leg swelling, hemoptysis, exogenous hormone use, active cancer, that he is aware of. The patient also endorses fever with a T-max of 102, which he has been taking Tylenol and ibuprofen for. They have not yet seen any physicians for these complaints. He states that the myalgias are unbearable and he feels very weak. The patient is still tolerating p.o. without difficulty and has no abdominal pain and no change in his output. REVIEW OF SYSTEMS: A 10-point review of systems completed, all negative unless stated above. PHYSICAL EXAMINATION: GENERAL: Patient in no acute distress, nontoxic appearing. HEENT: PERRLA, EOMI. Conjunctivae clear. TMs clear bilaterally. EAC clear. External ear unremarkable. Nares unremarkable without evidence of epistaxis, rhinorrhea or congestion. Posterior oropharynx without any edema, erythema or exudate. Tolerating his own secretions. NECK: No cervical lymphadenopathy present with full range of motion of the neck and no nuchal rigidity. LUNGS: Clear to auscultation bilaterally with no wheezing, rales or rhonchi. The patient is saturating 95% on room air. Unlabored breathing with no retractions or tripoding. HEART: Tachycardic, regular rhythm with no murmurs, rubs or gallops. Capillary refill less than 2 throughout. DP, PT and radial pulses 2+ bilaterally. EXTREMITIES: 5/5 strength in all 4 extremities through full range of motion with ability to ambulate without difficulty or ataxia. Sensation and 2 point discrimination maintained. NEUROLOGIC: Patient is alert and oriented to person, place and time with cranial nerves II through XII intact. NIH of 0. Patient has appropriate mood and thought content. DIAGNOSTIC DATA: EKG shows sinus tachycardia with a ventricular rate of 108. Interval is otherwise within normal limits. No significant ST or T wave abnormalities. No STEMI. QTC 452. CT showed patchy ground glass opacities bilaterally. No evidence of dissection, PE, or aneurysm. Patient's laboratory evaluation; leukopenic, otherwise no evidence of leukocytosis, Page 1 of 2 LIA BUSTAMANTE Emergency Room Report LIA BUSTAMANTE : 1960 anemia, thrombocytopenia. Metabolic panel unremarkable with appropriate kidney function. No significant electrolyte abnormalities. Troponin trending 6.6 to 8.1. BNP within normal limits. COVID positive. MEDICAL DECISION MAKING/EMERGENCY DEPARTMENT COURSE AND TREATMENT: Patient presents with symptoms consistent with acute COVID-19 infection; however, patient is at risk for a concomitant PE with his increasing shortness of breath, tachycardia, tachypnea, however, not hypoxic. Patient will receive a workup to rule out ACS, PE and superimposed bacterial pneumonia. Patient comfortable with this plan. If all is negative, patient will likely be discharged home given his lack of oxygen requirement and stable vitals. We are planning on getting a 3rd one; however, patient states he feels back to his baseline and would like to go home now and refused the 3rd troponin and would like to go home without it. Patient counseled that if it is significantly uptrending, that would change his disposition. Patient states that he is aware of the risks and would prefer not to have it as he feels fine. Patient was ambulated while in the emergency department and maintained his saturations above 93% without any increased tachypnea or tachycardia. PLAN/DISPOSITION: Patient requesting to leave at this point in time as the Toradol and fluids brought him back to his baseline. The patient was discharged home to follow up with his primary care provider in the next 2 to 3 days in stable condition. I answered all his questions to the best of my ability. I recommended Tylenol and ibuprofen as needed for symptom control. We went over return precautions. If any new or worsening symptoms arose he should return immediately and that if at any point, he gets more short of breath, he needs to come in to ensure he does not require oxygen. Patient expressed understanding and was comfortable with this plan. Patient was discharged home in stable condition under the care of himself and his . Dictated By: Adele Jordan DO (more content not included)... Normal [facility] TROPONIN I, HIGH SENSITIVITY on 02-08-2021 HS TROPONIN 8.1 pg/mL Normal 0.0 - 76.2 [facility] Comment on above: Performed By: #### 2 10578 #### [facility],[address] [place] [address] BMP with eGFRon 02-07-2021 AGE 61 years Normal [facility] Comment on above: Performed By: #### 2 01238 #### [facility],[address] [place] [address] Anion gap [Moles/Vol] 14 mmol/L Normal - [facility] Comment on above: Performed By: #### 2 70734 #### [facility],[address] [place], [place] [id number] BMP with eGFR Normal [facility] Comment on above: Result Comment: BASI C METABOLIC PANEL Performed By: #### 2 28134 #### [facility],[address] [place] [address] Calcium [Mass/Vol] 8.5 mg/dL Normal 8.5 - 10.1 [facility] Comment on above: Performed By: #### 2 52769 #### [facility],[address] [place] [address]210 Chloride [Moles/Vol] 97 mmol/L Low 98 - 107 [facility] Comment on above: Performed By: #### 2 70018 #### [facility],[address] [place] [address]20 CO2 [Moles/Vol] 24.5 mmol/L Normal 21.0 - 32.0 [facility] Comment on above: Performed By: #### 2 39800 #### [facility],[address] [place] [address]605 Creatinine [Mass/Vol] 0.75 mg/dL Normal 0.70 - 1.30 [facility] Comment on above: Performed By: #### 2 91022 #### [facility],[address] [place] [address]76 GFR/1.73 sq M.predicted among non-blacks MDRD (S/P/Bld) [Vol rate/Area] mL/min/{1.73_m2} Normal 60 - 999 [facility] Comment on above: Performed By: #### 2 41876 #### [facility],[address] [place] [address] Result Comment: ACCO RDING TO THE NATIONAL KIDNEY DISEASE EDUCATION PROGRAM(NKDE), A NORMAL eGFR IS A VALUE GREATER THAN OR EQUAL TO 60 ML/MIN/1.73 SQ METERS. CHRONIC KIDNEY DISEASE: <60mL/MIN/1.73 SQ METERS KIDNEY FAILURE: <15mL/MIN/1.73 SQ METERS THIS TEST SHOULD ONLY BE USED FOR PATIENTS 18 YEARS OF AGE AND OLDER. Glucose [Mass/Vol] 112 mg/dL High 74 - 106 [facility] Comment on above: Performed By: #### 2 11644 #### [facility],[address] [place] [address] Potassium [Moles/Vol] 3.5 mmol/L Normal 3.5 - 5.1 [facility] Comment on above: Performed By: #### 2 58036 #### [facility],[address] [place] [address]25 Sodium [Moles/Vol] 132 mmol/L Low 136 - 145 [facility] Comment on above: Performed By: #### 2 80280 #### [facility],[address] [place] [address]1749 Urea nitrogen [Mass/Vol] 8 mg/dL Normal 7 - 18 [facility] Comment on above: Performed By: #### 2 69695 #### [facility],[address] [place] [address]22 CBC + DIFFon 02-07-2021 Baso # 0.00 x10EE3/UL Normal 0.00 - 0.10 [facility] Comment on above: Performed By: #### 2 17097 #### [facility],[address] [place] [address] Basophils/100 WBC (Bld) 0.3 % Normal 0.0 - 2.0 [facility] Comment on above: Performed By: #### 2 91206 #### [facility],[address] [place] [address]1973 CBC + DIFF Normal [facility] Comment on above: Result Comment: CBC- COMPLETE BLOOD COUNT Performed By: #### 2 67137 #### [facility],[address] [place] [address]01 EO # 0.00 x10EE3/UL Normal 0.00 - 0.50 [facility] Comment on above: Performed By: #### 2 36975 #### [facility],[address] [place] [address]35 Eosinophils/100 WBC (Bld) 0.2 % Normal 0.0 - 7.0 [facility] Comment on above: Performed By: #### 2 66453 #### [facility],[address] [place] [address] Erythrocyte distribution width (RBC) [Ratio] 13.5 % Normal 12.0 - 15.6 [facility] Comment on above: Performed By: #### 2 38881 #### [facility],[address] [place] [address] Hematocrit (Bld) [Volume fraction] 43.8 % Normal 40.0 - 52.0 [facility] Comment on above: Performed By: #### 2 15023 #### [facility],[address] [place] [address] Hemoglobin (Bld) [Mass/Vol] 15.0 g/dL Normal 13.0 - 17.5 [facility] Comment on above: Performed By: #### 2 41234 #### [facility],[address] [place] [address] Lymph # 0.60 x10EE3/UL Low 0.80 - 2.80 [facility] Comment on above: Performed By: #### 2 85785 #### [facility],[address] [place] [address] Lymphocytes/100 WBC (Bld) 14.7 % Low 20.0 - 45.0 [facility] Comment on above: Performed By: #### 2 20494 #### [facility],[address] [place], [place] [phone] MANUAL DIFF N/A Normal [facility] Comment on above: Performed By: #### 2 93762 #### [facility],[address] [place], [place] [phone] MCH (RBC) [Entitic mass] 29 pg Normal 27 - 33 [facility] Comment on above: Performed By: #### 2 63946 #### [place] [address] MCHC 34 X10 3 Normal 32 - 36 [facility] Comment on above: Performed By: #### 2 41134 #### [facility],[address] [place], [place] [phone] MCV (RBC) [Entitic vol] 84 fL Normal 81 - 98 [facility] Comment on above: Performed By: #### 2 41939 #### [facility],[address] [place] [address] Hamilton # 0.40 x10EE3/UL Normal 0.20 - 1.00 [facility] Comment on above: Performed By: #### 2 58487 #### [facility],[address] [place] [address] 18597 MONOS % 10.1 % High 0.0 - 10.0 [facility] Comment on above: Performed By: #### 2 42433 #### [facility],[address] [place] [address] Morphology Richard (Bld) [Interp] N/A Normal [facility] Comment on above: Result Comment: {CD] Performed By: #### 2 71452 #### [facility],[address] [place] [address] Neut # 3.00 x10EE3/UL Normal 1.50 - 7.10 [facility] Comment on above: Performed By: #### 2 71001 #### [facility],[address] [place], [place] [phone] Neutrophils/100 WBC (Bld) 74.7 % Normal 46.0 - 76.0 [facility] Comment on above: Performed By: #### 2 69136 #### [facility],[address] [place] [address]98 PLATELET 187 x10EE3/UL Normal 150 - 450 [facility] Comment on above: Performed By: #### 2 16124 #### [facility],[address] [place] [address]47 Platelet mean volume (Bld) [Entitic vol] 7.5 fL Normal 6.4 - 10.5 [facility] Comment on above: Result Comment: AUTO MATED DIFFERENTIAL Performed By: #### 2 61600 #### [facility],[address] [place] [address] 57280 RBC 5.22 x 10EE6/UL Normal 4.50 - 6.00 [facility] Comment on above: Performed By: #### 2 50795 #### [facility],[address] [place] [address] 69032 WBC 4.0 x 10EE3/UL Low 4.5 - 10.8 [facility] Comment on above: Performed By: #### 2 58054 #### [facility],[address] [place] [address] 66433 CHEST 1 VIEWon 02-07-2021 CHEST 1 VIEW [place] [address] Patient: LIA BUSTAMANTE Phone#: : 1960 Age: 61 Gender: M Pt. Type: ER Account: [id number] Location: [facility] Ordering: DR. SALBADOR CHEATHAM Exam Date: 02/07/2021/20:11 Family Phys: Charge Code: [id number] Physician: [place] Order #: [id number] DLP Dose#: PROCEDURE: X-RAY CHEST 1 VIEW COMPARISON: None. INDICATIONS: Covid. FINDINGS: LUNGS: Hazy bilateral peripheral infiltrates are present. VASCULATURE: Normal. Unremarkable pulmonary vasculature. CARDIAC: Normal. No cardiac silhouette abnormality or cardiomegaly. MEDIASTINUM: Calcifications present at the aortic arch. PLEURA: Normal. No effusion or pleural thickening. BONES: Normal. No fracture or visible bony lesion. OTHER: Negative. CONCLUSION: 1. Hazy bilateral peripheral infiltrates. Dictated by: Fide Richards MD on 02/09/2021 at 7:42 Approved by: Fide Richards MD on 02/09/2021 at 7:43 Normal [facility] CORONAVIRUS (SARS) ANTIGEN T ESTon 02-07-2021 EXTERNAL QC DONE? YES Normal [facility] Comment on above: Performed By: #### 2 13846 #### [facility],[address] [place] [address] INTERNAL CONTROL PASS Normal [facility] Comment on above: Performed By: #### 2 52616 #### [facility],[address] [place], [place] [phone] SARS ANTIGEN Positive Critically abnormal NORMAL: NEGATIVE [facility] Comment on above: Result Comment: { CA LLED TO RA@2054 TO BRAXTON { READ BACK BY RB@ 2054 TO EML Performed By: #### 2 12978 #### [facility],[address] [place], [place] [phone] SEND TO IC? YES Normal [facility] Comment on above: Result Comment: SARS -CoV-2 THIS TEST IS BEING USED UNDER THE FDA EUA PROCEDURE. THIS ASSAY HAS BEEN VALIDATED AT [facility] FOR USE WITH NASAL AND NASOPHARYNGEAL SWAB SPECIMENS. INTERPRETIVE DATA TEST RESULTS SHOULD ALWAYS BE CONSIDERED IN THE CONTEXT OF CLINICAL OBSERVATIONS AND EPIDEMIOLOGICAL DATA IN MAKING FINAL DIAGNOSIS AND PATIENT MANAGEMENT DECISIONS. PATIENT MANAGEMENT SHOULD FOLLOW CURRENT CDC GUIDELINES. THE MARINA SARS ANTIGEN ANA MARIA DOES NOT DIFFERENTIATE BETWEEN SARS-CoV & SARS-CoV-2. A POSITIVE TEST RESULT INDICATES THE PRESENCE OF SARS-CoV-2 NUCLEOCAPSID PROTEIN ANTIGEN, AND THE PATIENT IS INFECTED WITH THE VIRUS AND PRESUMED TO BE CONTAGIOUS. A NEGATIVE TEST RESULT FOR THIS TEST MEANS THAT SARS-CoV-2 NUCLEOCAPSID PROTEIN ANTIGEN WAS NOT PRESENT IN THE SPECIMEN ABOVE THE LIMIT OF DETECTION. HOWEVER, A NEGATIVE RESULT DOES NOT RULE OUT COVID-19 AND SHOULD NOT BE USED THE SOLE BASIS FOR TREATMENT OR PATIENT MANAGEMENT DECISIONS. A NEGATIVE RESULT DOES NOT EXCLUDE THE POSSIBILITY OF COVID-19. NEGATIVE RESULTS, FROM PATIENTS WITH SYMPTOM ONSET BEYOND FIVE DAYS, SHOULD BE TREATED PRESUMPTIVE AND CONFIRMATION WITH A MOLECULAR ASSAY, IF NECESSARY, FOR PATIENT MANAGEMENT, MAY BE PERFORMED. WHEN DIAGNOSTIC TESTING IS NEGATIVE, THE POSSIBLILTY OF A FALSE NEGATIVE RESULT SHOULD BE CONSIDERED IN THE CONTEXT OF A PATIENT'S RECENT EXPOSURES AND THE PRESENCE OF CLINICAL SIGNS AND SYMPTOMS CONSISTENT WITH COVID-19. THE POSSIBILITY OF A FALSE NEGATIVE RESULT SHOULD ESPECIALLY BE CONSIDERED IF THE PATIENT'S RECENT EXPOSURES OR CLINICAL PRESENTATION INDICATE THAT COVID-19 IS LIKELY, AND DIAGNOSTIC TESTS FOR OTHER CAUSES OF ILLNESS (e.g., OTHER RESPIRATORY ILLNESS) ARE NEGATIVE. IF COVID-19 IS STILL SUSPECTED BASED ON EXPOSURE HISTORY TOGETHER WITH OTHER CLINICAL FINDINGS, RE-TESTING SHOULD BE CONSIDERED BY HEALTHCARE PROVIDERS IN CONSULTATION WITH PUBLIC HEALTH AUTHORITIES. Performed By: #### 2 30020 #### [facility],[address] [place] [address] CT CHEST (PE PROTOCOL)on CT CHEST (PE PROTOCOL) [place] [id number] Patient: LIA BUSTAMANTE Phone#: : 1960 Age: 61 Gender: M Pt. Type: ER Account: [id number] Location: [facility] Ordering: DR. SALBADOR CHEATHAM Exam Date: 02/07/2021/21:05 Family Phys: Charge Code: [id number] Physician: [place] Order #: [id number] DLP Dose#: 5.3 mGy PROCEDURE: CT CHEST WITH CONTRAST FOR PE COMPARISON: None. INDICATIONS: Covid. TECHNIQUE: After obtaining the patient's consent, CT images were obtained with non-ionic intravenous contrast material. Multi-planar images were created to optimize visualization of vascular anatomy with MPR/MIPS and 3D imaging. All CT scans at this facility use dose modulation, iterative reconstruction, and/or weight based dosing when appropriate to reduce radiation dose to as low as reasonably achievable. IV CONTRAST: Omnipaque 350,85ml TOTAL DOSE: 5.3 CTDIvol(mGy) FINDINGS: VASCULATURE: Normal. No visible pulmonary arterial thrombus or attenuation. AORTA: Normal. No aneurysm or dissection. LUNGS: Chronic interstitial changes are present. There are peripheral ground-glass infiltrates. KELLY: Mild bilateral hilar adenopathy. MEDIASTINUM: A small hiatal hernia is present.. No mass or adenopathy. CARDIAC: Normal. No enlargement, pericardial thickening, or significant calcification. PLEURA: Normal. No mass or effusion. CHEST WALL: Normal. No mass or axillary adenopathy. LIMITED ABDOMEN: Normal. Limited images of the upper abdomen are unremarkable. BONES: Normal. No bony lesion or fracture. OTHER: Negative. CONCLUSION: 1. There is no evidence of pulmonary embolus. 2. Bilateral infiltrates are present. [place] [address] Patient: LIA BUSTAMANTE Phone#: : 1960 Age: 61 Gender: M Pt. Type: ER Account: [id number] Location: [facility] Ordering: DR. SALBADOR CHEATHAM Exam Date: 02/07/2021/21:05 Family Phys: Charge Code: [id number] Physician: [place] Order #: [id number] DLP Dose#: 5.3 mGy Dictated by: Fide Richarsd MD on 02/09/2021 at 8:37 Approved by: Fide Richards MD on 02/09/2021 at 8:39 Normal [facility] NT-proBNPon 02-07-2021 Natriuretic peptide B (Bld) [Mass/Vol] 38 pg/mL Normal 0 - 125 [facility] Comment on above: Performed By: #### 2 08592 #### [place] [address] TROPONIN I, HIGH SENSITIVITY on 02-07-2021 HS TROPONIN 6.6 pg/mL Normal 0.0 - 76.2 [facility] Comment on above: Performed By: #### 2 56526 #### [facility],[address] [place], [place] [phone] Hemoglobin A1Con 11-25-2020 Glucose [Mass/Vol] 114 mg/dL Normal [facility] Comment on above: Result Comment: The ADA and AACC recommend providing the estimated average glucose result to permit better patient understanding of their HBA1c result. Performed By: #### A LT, GLYHGB, LIPR, BMP #### [facility] [employer] [address] [place] [address] Youth Program Director: Sameer Worthington MD HbA1c (Bld) [Mass fraction] 5.6 % Normal 4.0-6.0 [facility] Comment on above: Performed By: #### A LT, GLYHGB, LIPR, BMP #### [facility] [employer] [facility] [place] [address] Youth Program Director: Sameer Worthington MD Harry 11-24-2020 ALT [Catalytic activity/Vol] 20 U/L Normal 5-41 [facility] Comment on above: Performed By: #### A LT, GLYHGB, LIPR, BMP #### [facility] [employer] [address] [place] [address] Youth Program Director: Sameer Worthington MD Basic Metabolic Profon 11-24 (cont.) Normal [facility] Comment on above: Result Comment: Aver age GFR for 60-69 years old: 85 mL/min/1.73sq m Chronic Kidney Disease: <60 mL/min/1.73sq m Kidney failure: <15 mL/min/1.73sq m eGFR calculated using average adult body mass. Additional eGFR calculator available at: http://[email or web address]/multiple_crcl_2012.htm Performed By: #### A LT, GLYHGB, LIPR, BMP #### [facility] [employer] [address] [place] [address] Youth Program Director: Sameer Worthington MD Anion gap [Moles/Vol] 10 mmol/L Normal 9-17 [facility] Comment on above: Performed By: #### A LT, GLYHGB, LIPR, BMP #### [facility] [employer] [facility] [address] [place] [address] Youth Program Director: Sameer Worthington MD Calcium [Mass/Vol] 9.4 mg/dL Normal 8.6-10.4 [facility] Comment on above: Performed By: #### A LT, GLYHGB, LIPR, BMP #### [facility] [employer] [address] [place] [address] [phone] Youth Program Director: Sameer Worthington MD Chloride [Moles/Vol] 105 mmol/L Normal 98-107 [facility] Comment on above: Performed By: #### A LT, GLYHGB, LIPR, BMP #### [facility] [employer] [facility] [address] [place] [address] Youth Program Director: Sameer Worthington MD CO2 [Moles/Vol] 25 mmol/L Normal 20-31 [facility] Comment on above: Performed By: #### A LT, GLYHGB, LIPR, BMP #### [facility] [address] [place] [address] Youth Program Director: Sameer Worthington MD Creatinine [Mass/Vol] 0.80 mg/dL Normal 0.70-1.20 [facility] Comment on above: Performed By: #### A LT, GLYHGB, LIPR, BMP #### [facility] [address] [place] [address] Youth Program Director: Sameer Worthington MD GFR, Amer >60 Normal >60 [facility] Comment on above: Performed By: #### A LT, GLYHGB, LIPR, BMP #### [facility] [address] [place] [address] Youth Program Director: Sameer Worthington MD GFR,non Amer >60 Normal >60 [facility] Comment on above: Performed By: #### A LT, GLYHGB, LIPR, BMP #### [facility] [employer] [facility] [address] [place] [address] Youth Program Director: Sameer Worthington MD Glucose [Mass/Vol] 97 mg/dL Normal 70-99 [facility] Comment on above: Performed By: #### A LT, GLYHGB, LIPR, BMP #### [facility] [employer] [facility] [address] [place] [address] Youth Program Director: Sameer Worthington MD Potassium [Moles/Vol] 4.3 mmol/L Normal 3.7-5.3 [facility] Comment on above: Performed By: #### A LT, GLYHGB, LIPR, BMP #### [employer] [address] [place] [address] Youth Program Director: Sameer Worthington MD Sodium [Moles/Vol] 140 mmol/L Normal 135-144 [facility] Comment on above: Performed By: #### A LT, GLYHGB, LIPR, BMP #### [employer] [address] [place] [address] Youth Program Director: Sameer Worthington MD Urea nitrogen [Mass/Vol] 13 mg/dL Normal 8- [facility] [facility] Comment [facility]: Performed By: #### A LT, GLYHGB, LIPR, BMP #### [facility], [employer] [address] [place] [address] Youth Program Director: Sameer Worthington MD BUN/CRE Ratio NOT REPORTED Normal 9- [facility] Comment on above: Performed By: #### A LT, GLYHGB, LIPR, BMP #### [employer] [address] [place] [address] Youth Program Director: Sameer Worthington MD Staging: NOT REPORTED Normal [facility] Comment on above: Performed By: #### A LT, GLYHGB, LIPR, BMP #### [employer] [address] [place] [address] Youth Program Director: Sameer Worthington MD Lipid Profileon 11-24-2020 Cholesterol [Mass/Vol] 157 mg/dL Normal <200 [facility] Comment on above: Result Comment: Cholesterol Guidelines: <200 Desirable 200-240 Borderline >240 Undesirable Performed By: #### A LT, GLYHGB, LIPR, BMP #### [employer] [address] [place] [address] Youth Program Director: Sameer Worthington MD Cholesterol in HDL [Mass/Vol] 45 mg/dL Normal >40 [facility] Comment on above: Result Comment: HDL Guidelines: <40 Undesirable 40-59 Borderline >59 Desirable Performed By: #### A LT, GLYHGB, LIPR, BMP #### [employer] [address] [place] [address] Youth Program Director: Sameer Worthington MD Cholesterol in LDL [Mass/Vol] 83 mg/dL Normal 0-130 [facility] Comment on above: Result Comment: LDL Guidelines: <100 Desirable 100-129 Near to/above Desirable 130-159 Borderline >159 Undesirable Direct (measured) LDL and calculated LDL are not interchangeable tests. Performed By: #### A LT, GLYHGB, LIPR, BMP #### [facility], [employer] [address] [place] [address] Youth Program Director: Sameer Worthington MD Cholesterol.total/ Cholesterol in HDL [Mass ratio] 3.5 {ratio} Normal <5 [facility] Comment on above: Performed By: #### A LT, GLYHGB, LIPR, BMP #### [employer] [address] [place] [address] [id number] Youth Program Director: Sameer Worthington MD Triglyceride [Mass/Vol] 147 mg/dL Normal <150 [facility] Comment on above: Result Comment: Triglyceride Guidelines: <150 Desirable 150-199 Borderline 200-499 High >499 Very high Based on AHA Guidelines for fasting triglyceride, November 2011. Performed By: #### A LT, GLYHGB, LIPR, BMP #### [employer] [address] [place] [address] Youth Program Director: Sameer Worthington MD Cholesterol,VLDL NOT REPORTED Normal 1-30 [facility] Comment on above: Performed By: #### A LT, GLYHGB, LIPR, BMP #### [employer] [address] [place] [address] Youth Program Director: Sameer Worthington MD CT LUNG SCREENING (INITIAL/A NNUAL)on 06-06-2020 CT LUNG SCREENING (INITIAL/ANNUAL) EXAMINATION: LOW DOSE SCREENING CT OF THE CHEST WITHOUT CONTRAST 06/06/2020 7:05 am TECHNIQUE: Low dose lung cancer screening CT of the chest was performed without the administration of intravenous contrast. Multiplanar reformatted images are provided for review. Dose modulation, iterative reconstruction, and/or weight based adjustment of the mA/kV was utilized to reduce the radiation dose to as low as reasonably achievable. Ralfv-kw-foru: 32 cm Dose Length Product: 71.07 mGy CTDlvol: 2.03 mGy COMPARISON: 04/14/2019 HISTORY: Screening. Patient Age: 60 y/o Number of pack years of smokin pack years If no longer smoking, number of years since cessation: 11 years Other symptoms: None. Additional history: ORDERING SYSTEM PROVIDED HISTORY: Personal history of nicotine dependence TECHNOLOGIST PROVIDED HISTORY: Is there documentation of shared decision making?->Yes Does the patient show any signs or symptoms of lung cancer?->No Is this the first (baseline) CT or an annual exam?->Annual Is this a low dose CT or a routine CT?->Low Dose CT Smoking Status?->Former Smoker Date quit smoking? (must be within 15 years)->02/23/08 Smoking packs per day?->2 Years smoking?->30 Reason for Exam: former smoker, quit 12 years ago. 2ppd for 30 years Acuity: Unknown Type of Exam: Unknown FINDINGS: Mediastinum: Visualized thyroid gland grossly unremarkable in appearance. Atherosclerotic calcification of the aorta. No axillary, mediastinal, or hilar lymphadenopathy. Calcified mediastinal lymph nodes. Coronary artery disease. No pericardial or pleural effusions. No periaortic or mediastinal hemorrhage. Lungs/Pleura: Trachea and proximal central airways appear patent. Moderate to severe emphysema. No lobar airspace consolidation. No pneumothorax. Mild biapical pleuroparenchymal scarring. Mild dependent atelectasis. Mild respiratory motion. Stable 5 mm pulmonary nodule in the lateral right lower lobe which has been present/stable dating back to 01/04/2014 as seen on image 87, series 4. Atelectasis and scarring in the lingula and right middle lobe. Upper Abdomen: Atherosclerotic calcification of the upper abdominal aorta. Mild stool burden. Stable fluid density lesions within the liver measuring 1.9 cm in the anterior left hepatic lobe on image 109, series 2 and up to 1.3 cm in the medial right hepatic lobe on image 110, series 2. Underlying fatty liver. Additional smaller low-density lesions, too small to characterize, unchanged from the prior exam of 04/14/2019. Soft Tissues/Bones: Mild diffuse degenerative changes throughout the spine. IMPRESSION: 1. Stable 5 mm lateral right lower lobe pulmonary nodule, unchanged dating back to 01/04/2014. 2. Atelectasis and scarring in the lingula and right middle lobe. Moderate to severe emphysema. Mild biapical pleuroparenchymal scarring. Mild dependent atelectasis and respiratory motion. No lobar airspace consolidation. 3. Stable low-density lesions in the liver, unchanged from the prior study, the largest of which are consistent with hepatic cysts. Fatty liver. 4. Old granulomatous disease. Coronary artery disease. Atherosclerotic calcification of the aorta. LUNG RADS: Per ACR Lung-RADS Version 1.1 Category 2, Benign appearance or behavior. Management: Continue annual lung screening with LDCT in 12 months. RECOMMENDATIONS: If you would like to register your patient with the [facility] Lung Nodule/Lung Cancer Screening Program, please contact the Nurse Navigator at [phone]). Interpreted by: Pako Buitrago MD Signed by: Pako Buitrago MD 06/06/20 Final result Normal [facility] Harry 05-15-2020 ALT [Catalytic activity/Vol] 21 U/L Normal 5-41 [facility] Comment on above: Performed By: #### L IPR, MG, ALT, BMP #### [facility] [address] [place], [place] [id number] Youth Program Director: Jim Thompson DO #### PSAS, GLYHGB #### [facility] [address] [place], [place] [id number] Youth Program Director: Sameer Worthington MD Basic Metabolic Profon 05-15 (cont.) Normal [facility] Comment on above: Result Comment: Aver age GFR for 60-69 years old: 85 mL/min/1.73sq m Chronic Kidney Disease: <60 mL/min/1.73sq m Kidney failure: <15 mL/min/1.73sq m eGFR calculated using average adult body mass. Additional eGFR calculator available at: http://www.[employer].com/multiple_crcl_2012.htm Performed By: #### L IPR, MG, ALT, BMP #### [facility] [address] [place] [address] Youth Program Director: Jim Thompson DO #### PSAS, GLYHGB #### [address] [address] Youth Program Director: Sameer Worthington MD Anion gap [Moles/Vol] 7 mmol/L Low 9-17 [facility] Comment on above: Performed By: #### L IPR, MG, ALT, BMP #### [facility] [address] [place] [address] Youth Program Director: Jim Thompson DO #### PSAS, GLYHGB #### [address] [address] Youth Program Director: Sameer Worthington MD Calcium [Mass/Vol] 9.3 mg/dL Normal 8.6-10.4 [facility] Comment on above: Performed By: #### L IPR, MG, ALT, BMP #### [facility] [place] [address] Youth Program Director: Jim Thompson DO #### PSAS, GLYHGB #### [address] [address] Youth Program Director: Sameer Worthington MD Chloride [Moles/Vol] 106 mmol/L Normal 98-107 [facility] Comment on above: Performed By: #### L IPR, MG, ALT, BMP #### [facility] [address] [place] [address] Youth Program Director: Jim Thompson DO #### PSAS, GLYHGB #### [address] [address] Youth Program Director: Sameer Worthington MD CO2 [Moles/Vol] 27 mmol/L Normal 20-31 [facility] Comment on above: Performed By: #### L IPR, MG, ALT, BMP #### [facility] [address] [place] [address] Youth Program Director: Jim Thompson DO #### PSAS, GLYHGB #### [address] [address] Youth Program Director: Sameer Worthington MD Creatinine [Mass/Vol] 0.85 mg/dL Normal 0.70-1.20 [facility] Comment on above: Performed By: #### L IPR, MG, ALT, BMP #### [facility] [place] [address] Youth Program Director: Jim Thompson DO #### PSAS, GLYHGB #### [address] [address] Youth Program Director: Sameer Worthington MD GFR, Amer >60 Normal >60 [facility] Comment on above: Performed By: #### L IPR, MG, ALT, BMP #### [facility] [address] [place] [address] Youth Program Director: Jim Thompson DO #### PSAS, GLYHGB #### [address] [address] Youth Program Director: Sameer Worthington MD GFR,non Amer >60 Normal >60 [facility] Comment on above: Performed By: #### L IPR, MG, ALT, BMP #### [facility] [address] [place] [address] Youth Program Director: Jim Thompson DO #### PSAS, GLYHGB #### [address] [address] Youth Program Director: Sameer Worthington MD Glucose [Mass/Vol] 107 mg/dL High 70-99 [facility] Comment on above: Performed By: #### L IPR, MG, ALT, BMP #### [facility] [address] [place] [address] Youth Program Director: Jim Thompson DO #### PSAS, GLYHGB #### [address] [address] Youth Program Director: Sameer Worthington MD Potassium [Moles/Vol] 4.3 mmol/L Normal 3.7-5.3 [facility] Comment on above: Performed By: #### L IPR, MG, ALT, BMP #### [facility] [address] [place] [address] Youth Program Director: Jim Thompson DO #### PSAS, GLYHGB #### [address] [address] Youth Program Director: Sameer Worthington MD Sodium [Moles/Vol] 140 mmol/L Normal 135-144 [facility] Comment on above: Performed By: #### L IPR, MG, ALT, BMP #### [facility] [place] [address] Youth Program Director: Jim Thompson DO #### PSAS, GLYHGB #### [address] [address] Youth Program Director: Sameer Worthington MD Urea nitrogen [Mass/Vol] 17 mg/dL Normal 8-23 [facility] Comment on above: Performed By: #### L IPR, MG, ALT, BMP #### [facility] [address] [place] [address] Youth Program Director: Jim Thompson DO #### PSAS, GLYHGB #### [id number] [place] [address] Youth Program Director: Sameer Worthington MD BUN/CRE Ratio NOT REPORTED Normal 9-20 [facility] Comment on above: Performed By: #### L IPR, MG, ALT, BMP #### [facility] [address] [place] [address] Youth Program Director: Jim Thompson DO #### PSAS, GLYHGB #### [address] [address] Youth Program Director: Sameer Worthington MD Staging: NOT REPORTED Normal [facility] Comment on above: Performed By: #### L IPR, MG, ALT, BMP #### [facility] [address] [place] [address] Youth Program Director: Jim Thompson DO #### PSAS, GLYHGB #### [address] [address] Youth Program Director: Sameer Worthington MD Hemoglobin A1Con 05-15-2020 Glucose [Mass/Vol] 123 mg/dL Normal [facility] Comment on above: Result Comment: The ADA and AACC recommend providing the estimated average glucose result to permit better patient understanding of their HBA1c result. Performed By: #### L IPR, MG, ALT, BMP #### [facility] [address] [place] [address] Youth Program Director: Jim Thompson DO #### PSAS, GLYHGB #### [address] [id number] Youth Program Director: Sameer Worthington MD HbA1c (Bld) [Mass fraction] 5.9 % Normal 4.0-6.0 [facility] Comment on above: Performed By: #### L IPR, MG, ALT, BMP #### [facility] [address] [place] [address] Youth Program Director: Jim Thompson DO #### PSAS, GLYHGB #### [facility] [employer] [address] [place] [address] Youth Program Director: Sameer Worthington MD Lipid Profileon 05-15-2020 Cholesterol [Mass/Vol] 167 mg/dL Normal <200 [facility] Comment on above: Result Comment: Cholesterol Guidelines: <200 Desirable 200-240 Borderline >240 Undesirable Performed By: #### L IPR, MG, ALT, BMP #### [facility] [place] [address] Youth Program Director: Jim Thompson DO #### PSAS, GLYHGB #### [address] [address] Youth Program Director: Sameer Worthington MD Cholesterol in HDL [Mass/Vol] 46 mg/dL Normal >40 [facility] Comment on above: Result Comment: HDL Guidelines: <40 Undesirable 40-59 Borderline >59 Desirable Performed By: #### L IPR, MG, ALT, BMP #### [facility] [place] [address] Youth Program Director: Jim Thompson DO #### PSAS, GLYHGB #### [facility] [employer] [address] [place] [address] Youth Program Director: Sameer Worthington MD Cholesterol in LDL [Mass/Vol] 98 mg/dL Normal 0-130 [facility] Comment on above: Result Comment: LDL Guidelines: <100 Desirable 100-129 Near to/above Desirable 130-159 Borderline >159 Undesirable Direct (measured) LDL and calculated LDL are not interchangeable tests. Performed By: #### L IPR, MG, ALT, BMP #### [facility] [address] [place] [address] Youth Program Director: Jim Thompson DO #### PSAS, GLYHGB #### [address] [address] Youth Program Director: Sameer Worthington MD Cholesterol.total/ Cholesterol in HDL [Mass ratio] 3.6 {ratio} Normal <5 [facility] Comment on above: Performed By: #### L IPR, MG, ALT, BMP #### [facility] [address] [place] [address] Youth Program Director: Jim Thompson DO #### PSAS, GLYHGB #### [address] [address] Youth Program Director: Sameer Worthington MD Triglyceride [Mass/Vol] 113 mg/dL Normal <150 [facility] Comment on above: Result Comment: Triglyceride Guidelines: <150 Desirable 150-199 Borderline 200-499 High >499 Very high Based on AHA Guidelines for fasting triglyceride, November 2011. Performed By: #### L IPR, MG, ALT, BMP #### [facility] [address] [place] [address] Youth Program Director: Jim Thompson DO #### PSAS, GLYHGB #### [address] [address] Youth Program Director: Sameer Worthington MD Cholesterol,VLDL NOT REPORTED Normal 1-30 [facility] Comment on above: Performed By: #### L IPR, MG, ALT, BMP #### [facility] [address] [place] [address] Youth Program Director: Jim Thompson DO #### PSAS, GLYHGB #### [address] [address] Youth Program Director: Sameer Worthington MD Magnesiumon 05-15-2020 Magnesium [Mass/Vol] 2.0 mg/dL Normal 1.6-2.6 [facility] Comment on above: Performed By: #### L IPR, MG, ALT, BMP #### [facility] [address] [place] [address] Youth Program Director: Jim Thompson DO #### PSAS, GLYHGB #### [address] [address] Youth Program Director: Sameer Worthington MD PSA, Screeningon 05-15-2020 Prostatic Spec. Ag 1.50 ug/L Normal <4.1 [facility] Comment on above: Result Comment: The Jose Daniel ECLIA assay is used. Results obtained with different assay methods cannot be used interchangeably. Performed By: #### L IPR, MG, ALT, BMP #### [facility] [address] [place] [address] Youth Program Director: Jim Thompson DO #### PSAS, GLYHGB #### [address] [address] Youth Program Director: Sameer Worthington MD Hemoglobin A1Con 09-17-2019 Glucose [Mass/Vol] 120 mg/dL Normal [facility] Comment on above: Result Comment: The ADA and AACC recommend providing the estimated average glucose result to permit better patient understanding of their HBA1c result. Performed By: #### L IPR, MG, ALT, BMP #### [facility] [place] [address] Youth Program Director: Jim Thompson DO #### PSAS, GLYHGB #### [address] [address] Youth Program Director: Sameer Worthington MD HbA1c (Bld) [Mass fraction] 5.8 % Normal 4.0-6.0 [facility] Comment on above: Performed By: #### L IPR, MG, ALT, BMP #### [facility] [place] [address] Youth Program Director: Jim Thompson DO #### PSAS, GLYHGB #### [facility] [address] [place] [address] Youth Program Director: MD Harry Molina 09-16-2019 ALT [Catalytic activity/Vol] 30 U/L Normal 5-41 [facility] Comment on above: Performed By: #### A LT, BMP, LIPR, MG #### [facility] [address] [place] [address] Youth Program Director: Jim Thompson DO #### GLYHGB #### [address] [address] Youth Program Director: Sameer Worthington MD Basic Metabolic Profon 09-15 (cont.) Normal [facility] Comment on above: Result Comment: Aver age GFR for 60-69 years old: 85 mL/min/1.73sq m Chronic Kidney Disease: <60 mL/min/1.73sq m Kidney failure: <15 mL/min/1.73sq m eGFR calculated using average adult body mass. Additional eGFR calculator available at: http://www.[employer]/multiple_crcl_2012.htm Performed By: #### A LT, BMP, LIPR, MG #### [facility] [address] [place] [address] Youth Program Director: Jim Thompson DO #### GLYHGB #### [facility] [employer] [facility] [place] [address] Youth Program Director: Sameer Worthington MD Anion gap [Moles/Vol] 10 mmol/L Normal 9-17 [facility] Comment on above: Performed By: #### A LT, BMP, LIPR, MG #### [facility] [address] [place] [address] Youth Program Director: Jim Thompson DO #### GLYHGB #### [address] [address] Youth Program Director: Sameer Worthington MD Calcium [Mass/Vol] 9.1 mg/dL Normal 8.6-10.4 [facility] Comment on above: Performed By: #### A LT, BMP, LIPR, MG #### [facility] [address] [place] [address] Youth Program Director: Jim Thompson DO #### GLYHGB #### [address] [address] Youth Program Director: Sameer Worthington MD Chloride [Moles/Vol] 103 mmol/L Normal 98-107 [facility] Comment on above: Performed By: #### A LT, BMP, LIPR, MG #### [facility] [address] [place] [address] Youth Program Director: Jim Thompson DO #### GLYHGB #### [address] [address] Youth Program Director: Sameer Worthington MD CO2 [Moles/Vol] 24 mmol/L Normal 20-31 [facility] Comment on above: Performed By: #### A LT, BMP, LIPR, MG #### [facility] [address] [place] [address] Youth Program Director: Jim Thompson DO #### GLYHGB #### [address] [address] Youth Program Director: Sameer Worthington MD Creatinine [Mass/Vol] 0.81 mg/dL Normal 0.70-1.20 [facility] Comment on above: Performed By: #### A LT, BMP, LIPR, MG #### [facility] [address] [place] [address] Youth Program Director: Jim Thompson DO #### GLYHGB #### [id number] [place] [address] Youth Program Director: Sameer Worthington MD GFR, Amer >60 Normal >60 [facility] Comment on above: Performed By: #### A LT, BMP, LIPR, MG #### [facility] [address] [place] [address] Youth Program Director: Jim Thompson DO #### GLYHGB #### [address] [address] Youth Program Director: Sameer Worthington MD GFR,non Amer >60 Normal >60 [facility] Comment on above: Performed By: #### A LT, BMP, LIPR, MG #### [facility] [address] [place] [address] Youth Program Director: Jim Thompson DO #### GLYHGB #### [address] [address] Youth Program Director: Sameer Worthington MD Glucose [Mass/Vol] 111 mg/dL High 70-99 [facility] Comment on above: Performed By: #### A LT, BMP, LIPR, MG #### [facility] [address] [place] [address] Youth Program Director: Jim Thompson DO #### GLYHGB #### [address] [address] Youth Program Director: Sameer Worthington MD Potassium [Moles/Vol] 3.9 mmol/L Normal 3.7-5.3 [facility] Comment on above: Performed By: #### A LT, BMP, LIPR, MG #### [facility] [address] [place] [address] Youth Program Director: Jim Thompson DO #### GLYHGB #### [id number] [place] [address] Youth Program Director: Sameer Worthington MD Sodium [Moles/Vol] 137 mmol/L Normal 135-144 [facility] Comment on above: Performed By: #### A LT, BMP, LIPR, MG #### [facility] [address] [place] [address] Youth Program Director: Jim Thompson DO #### GLYHGB #### [address] [address] Youth Program Director: Sameer Worthington MD Urea nitrogen [Mass/Vol] 11 mg/dL Normal 8-23 [facility] Comment on above: Performed By: #### A LT, BMP, LIPR, MG #### [facility] [address] [place] [address] Youth Program Director: Jim Thompson DO #### GLYHGB #### [address] [address] Youth Program Director: Sameer Worthington MD BUN/CRE Ratio NOT REPORTED Normal 9-20 [facility] Comment on above: Performed By: #### A LT, BMP, LIPR, MG #### [facility] [address] [place] [address] Youth Program Director: Jim Thompson DO #### GLYHGB #### [address] [address] Youth Program Director: Sameer Worthington MD Staging: NOT REPORTED Normal [facility] Comment on above: Performed By: #### A LT, BMP, LIPR, MG #### [facility] [address] [place] [address] Youth Program Director: Jim Thompson DO #### GLYHGB #### [facility] [employer] [address] [place] [address] Youth Program Director: Sameer Worthington MD Lipid Profileon 09-16-2019 Cholesterol [Mass/Vol] 149 mg/dL Normal <200 [facility] Comment on above: Result Comment: Cholesterol Guidelines: <200 Desirable 200-240 Borderline >240 Undesirable Performed By: #### A LT, BMP, LIPR, MG #### [facility] [address] [place] [address] Youth Program Director: Jim Thompson DO #### GLYHGB #### [address] [address] Youth Program Director: Sameer Worthington MD Cholesterol in HDL [Mass/Vol] 42 mg/dL Normal >40 [facility] Comment on above: Result Comment: HDL Guidelines: <40 Undesirable 40-59 Borderline >59 Desirable Performed By: #### A LT, BMP, LIPR, MG #### [facility] [address] [place] [address] Youth Program Director: Jim Thompson DO #### GLYHGB #### [address] [address] Youth Program Director: Sameer Worthington MD Cholesterol in LDL [Mass/Vol] 79 mg/dL Normal 0-130 [facility] Comment on above: Result Comment: LDL Guidelines: <100 Desirable 100-129 Near to/above Desirable 130-159 Borderline >159 Undesirable Direct (measured) LDL and calculated LDL are not interchangeable tests. Performed By: #### A LT, BMP, LIPR, MG #### [facility] [address] [place] [address] Youth Program Director: Jim Thompson DO #### GLYHGB #### [address] [address] Youth Program Director: Sameer Worthington MD Cholesterol.total/ Cholesterol in HDL [Mass ratio] 3.5 {ratio} Normal <5 [facility] Comment on above: Performed By: #### A LT, BMP, LIPR, MG #### [facility] [address] [place] [address] Youth Program Director: Jim Thompson DO #### GLYHGB #### [address] [address] Youth Program Director: Sameer Worthington MD Triglyceride [Mass/Vol] 139 mg/dL Normal <150 [facility] Comment on above: Result Comment: Triglyceride Guidelines: <150 Desirable 150-199 Borderline 200-499 High >499 Very high Based on AHA Guidelines for fasting triglyceride, November 2011. Performed By: #### A LT, BMP, LIPR, MG #### [facility] [address] [place] [address] Youth Program Director: Jim Thompson DO #### GLYHGB #### [address] [address] Youth Program Director: Sameer Worthington MD Cholesterol,VLDL NOT REPORTED Normal -30 [facility] Comment on above: Performed By: #### A LT, BMP, LIPR, MG #### [facility] [address] [place] [address] Youth Program Director: Jim Thompson DO #### GLYHGB #### [address] [address] Youth Program Director: Sameer Worthington MD Magnesiumon 09-16-2019 Magnesium [Mass/Vol] 2.1 mg/dL Normal 1.6-2.6 [facility] Comment on above: Performed By: #### L IPR, MG, ALT, BMP #### [facility] [address] [place] [address] Youth Program Director: iJm Thompson DO #### PSAS, GLYHGB #### [facility] [employer] [address] [place] [address] Youth Program Director: Sameer Worthington MD Encounters Encounter Date Encounter Type Care Provider Facility Start: 02-07-2021 End: 02-08-2021 Emergency department patient visit [facility] Start: 11-24-2020 End: 11-25-2020 ambulatory [facility] Start: 06-06-2020 End: 06-09-2020 ambulatory [facility] Start: 05-15-2020 End: 05-16-2020 ambulatory [facility] Start: 09-16-2019 End: 09-17-2019 ambulatory [facility] Procedures Date Procedure Procedure Detail Performing Clinician Start: 09-16-2019 Hemoglobin glycosylated a1c RITCHIE RODRIGUEZ Start: 09-16-2019 Lipid panel RITCHIE HART Payers Date Payer Category Payer Unknown [id number] 2015 Unknown [id number] 1960 Unknown [id number] 1960 Unknown [id number] 1960 Unknown [id number] [id number] 1960 Unknown [id number] [id number] Summary Purpose Family History No Family History Records FoundNo Family History Records FoundNo Family History Records Found Advance Directives No Advanced Directives Records FoundNo Advanced Directives Records FoundNo Advanced Directives Records Found Additional Source Comments (unrecognized sect ion and content) No Status Records FoundNo Status Records FoundNo Status Records Found INFORMATION SOURCE (unrecogn ized section and content) DATE CREATED AUTHOR 06/12/2020 [facility] DATE CREATED AUTHOR AUTHOR'S ORGANIZ ATION 11/26/2020 [facility] DATE CREATED AUTHOR AUTHOR'S ORGANIZ ATION 02/13/2021 [facility] FOR RECORDS PERTAINING TO PATIENTS WHO ARE OR HAVE BEEN ENROLLED IN A CHEMICAL DEPENDENCY/SUBSTANCEABUSE PROGRAM, SOME INFORMATION MAY BE OMITTED. This clinical summary was aggregated from multiple sources. Caution should be exercised in using it in the provision of clinical care. This summary normalizes information from multiple sources, and as a consequence, information in this document may materially change the coding, format and clinical context of patient data. In addition, data may be omitted in some cases. CLINICAL DECISIONS SHOULD BE BASED ON THE PRIMARY CLINICAL RECORDS. [employer] [facility]. provides no warranty or guarantee of the accuracy or completeness of information in this document.
--- NOTE | 2023-12-23 08:26 | PRE.ANES_ITS ---
ASA Classification* ASA Classification ASA Classification: 2 Assessment & Plan Anesthesia* Anesthesia Assessment Anesthesia Assessment: Discussed sedation and/or anesthesia options, risks, benefits, and alternatives with patient/parents/legal guardian/POA. Questions invited. The patient/parents/legal guardian/POA seems to understand and agrees to proceed with anesthesia plan. Reviewed the physical assessment, medical history, allergy history and patient home medications list prior to surgery/procedure/anesthetic and documented any changes. Performed airway and anesthesia risk assessments. Anesthesia Type Anesthesia Type: MAC Anesthesia Focused Assessment* Airway Assessment Mouth opens: >3 cm Mallampati Score: II Focused Labs Anesthesia Preop lab: CBC WBC 6.0 K/mm3 (4.4-11.0) 06/09/23 09:49 RBC 5.31 M/mm3 (4.6-6.2) 06/09/23 09:49 Hgb 15.2 g/dL (13.0-16.5) 06/09/23 09:49 Hct 45.5 % (40-54) 06/09/23 09:49 Plt Count 190 K/mm3 (150-450) 06/09/23 09:49 CHEMISTRY Potassium 4.2 mmol/L (3.5-5.1) 06/09/23 09:49 Sodium 141 mmol/L (136-145) 06/09/23 09:49 BUN 15 mg/dL (7-18) 06/09/23 09:49 Creatinine 0.96 mg/dL (0.70-1.30) 06/09/23 09:49 Glucose 100 mg/dL (74-106) 06/09/23 09:49 POC Glucose 110 mg/dL (74-106) H 12/26/21 10:45 TSH 1.50 uIU/mL (0.358-3.74) 05/19/21 16:06 COAG Pre-Assessment Diagnosis/Proposed Procedure Planned Operative Procedure(s): COLONOSCOPY-OA Anesthesia History 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 When Was Last Pacemaker Check QUESTION #4 FULL TEXT: You/Your Family Experience fever (hyperthermia) with Anesthesia Last Oral Intake Last Oral intake: Last Oral Intake NPO since Meds taken in AM with sips of water? 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 Female No 12/22/23 08:25 HX of Motion Sickness No 12/22/23 08:25 HX of N/V After Surgery No 12/22/23 08:25 Non-Smoker Yes 12/22/23 08:25 Duration of Surgery greater No 12/22/23 08:25 than 60 minutes Number of Risk Factors 1 12/22/23 08:25 PONV Score Low Risk 12/22/23 08:25 Height & Weight Height & Weight: Anesthesia: Height & Weight Height 5 ft 9 in 11/16/23 12:52 Respiratory Assessment Respiratory Assessment - mobile home laborer: Respiratory Tract Infection Hx - mobile home laborer Hx Respiratory Tract Infection No 12/22/23 08:25 STOP Sleep Apnea STOP Sleep Apnea - mobile home laborer: STOP Sleep Apnea - mobile home laborer Hx Hypertension No 12/22/23 08:25 Hx Sleep Apnea No 12/22/23 08:25 CPAP BIPAP Do you snore loudly (louder No 12/22/23 08:25 than talking or can be heard Do you often feel tired/ No 12/22/23 08:25 fatigued/ sleepy during daytime? Has anyone observed you stop No 12/22/23 08:25 breathing during sleep? STOP Results Negative 12/22/23 08:25 QUESTION #5 FULL TEXT : Do you snore loudly (louder than talking or can be heard through closed doors)? 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 Specify any problems Hx of Preganancy in last 3 N/A 12/22/23 08:25 Months Nurse Filling Out Transfusion VCHRISTIN 12/22/23 08:25 & Questions: Date: 12/22/23 12/22/23 08:25 Time: 08:26 12/22/23 08:25 Patient unable to answer at this time (ie. 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) COPD (chronic obstructive pulmonary disease) Wears glasses Wears partial dentures Prostate disease High cholesterol History of hiatal hernia Gastric reflux Former smoker Home Medications ?Medication ?Instructions ?Recorded ?Last Taken ?Type atorvastatin 10 mg tablet 10 mg PO QHS HLD 10/29/21 12/20/23 History calcium carbonate 600 mg PO DAILY SUPPLEMENT 10/29/21 12/20/23 History pantoprazole 40 mg tablet,delayed 40 mg PO DAILY GERD 10/29/21 12/22/23 History release sildenafil 50 mg tablet 50 mg PO DAILY PRN Erectile 10/29/21 12/23/21 History Dysfunction Allergy/AdvReac Type Severity Reaction Status Date / Time Penicillins Allergy Rash Verified 12/23/23 08:23 Family History Father Cancer lung Surgical History Hx of transurethral resection of prostate History of esophagogastroduodenoscopy (EGD) Hx of colonoscopy Hx of inguinal hernia repair Hx of vasectomy Social History household members: spouse current occupational status: retired Smoking Status: Former smoker substance use type: does not use Review of Systems (Anesthesia) ROS Narrative System reviewed and no additional complaints, except as documented.
--- NOTE | 2023-12-23 09:12 | OP.COLON_ITS ---
Patient Name: Tacho Bustillos Procedure Date: 12/23/2023 8:44 AM Date of : 1960 Age: 63 Procedure: Colonoscopy Indications: Screening for colorectal malignant neoplasm Providers: Gabo Cortez DO Referring MD: Spencer Rahman Medicines: Monitored Anesthesia Care Patient Profile: This is a 63 year old male. Refer to note in patient chart for documentation of history and physical. Last Colonoscopy: 5 years ago. Complications: No immediate complications. Procedure: Pre-Anesthesia Assessment: - Prior to the procedure, a History and Physical was performed, and patient medications and allergies were reviewed. The patient is competent. The risks and benefits of the procedure and the sedation options and risks were discussed with the patient. All questions were answered and informed consent was obtained. Patient identification and proposed procedure were verified by the nurse in the pre-procedure area. Mental Status Examination: alert and oriented. Airway Examination: normal oropharyngeal airway and neck mobility. Respiratory Examination: clear to auscultation. CV Examination: normal. Prophylactic Antibiotics: The patient does not require prophylactic antibiotics. Prior Anticoagulants: The patient has taken no anticoagulant or antiplatelet agents. ASA Grade Assessment: II - A patient with mild systemic disease. After reviewing the risks and benefits, the patient was deemed in satisfactory condition to undergo the procedure. The anesthesia plan was to use monitored anesthesia care (MAC). Immediately prior to administration of medications, the patient was re-assessed for adequacy to receive sedatives. The heart rate, respiratory rate, oxygen saturations, blood pressure, adequacy of pulmonary ventilation, and response to care were monitored throughout the procedure. The physical status of the patient was re-assessed after the procedure. After I obtained informed consent, the scope was passed under direct vision. Throughout the procedure, the patient's blood pressure, pulse, and oxygen saturations were monitored continuously. The Colonoscope was introduced through the anus and advanced to the cecum, identified by appendiceal orifice and ileocecal valve. The colonoscopy was performed without difficulty. The patient tolerated the procedure well. The quality of the bowel preparation was adequate. The ileocecal valve, appendiceal orifice, and rectum were photographed. Scope In: 8:50:08 AM Scope Withdrawal Time 0 hours 9 minutes 5 seconds Scope Out: 9:06:10 AM Total Procedure Duration Time 0 hours 16 minutes 2 seconds Findings: The perianal and digital rectal examinations were normal. A few small-mouthed diverticula were found in the recto-sigmoid colon. The exam was otherwise without abnormality on direct and retroflexion views. Impression: - Diverticulosis in the recto-sigmoid colon. - The examination was otherwise normal on direct and retroflexion views. - No specimens collected. Recommendation: - Discharge patient to home. - Resume previous diet. - Continue present medications. - Repeat colonoscopy in 5 years for surveillance. Procedure Code(s): --- Professional --- 10647, Colonoscopy, flexible; diagnostic, including collection of specimen(s) by brushing or washing, when performed (separate procedure) CPT copyright 2021 [employer]. All rights reserved. The codes documented in this report are preliminary and upon icd 9 coder review may be revised to meet current compliance requirements. Gabo Cortez DO 12/23/2023 9:12:32 AM This report has been signed electronically. Number of Addenda: 0 Note Initiated On: 12/23/2023 8:44 AM
--- NOTE | 2023-12-23 09:13 | OP.CCLET_ITS ---
12/23/2023 Spencer Rahman [address] [place] [address] Re : Colonoscopy procedure for [facility] Dear Dr. Rahman This procedure was performed on November. My impressions and recommendations are as follows: Impressions : - Diverticulosis in the recto-sigmoid colon. - The examination was otherwise normal on direct and retroflexion views. - No specimens collected. Recommendations : - Discharge patient to home. - Resume previous diet. - Continue present medications. - Repeat colonoscopy in 5 years for surveillance. My findings are described in the full procedure note, which is enclosed. If I can be of further assistance, please feel free to contact me at . Sincerely, Gabo Cortez, 12/23/2023 9:12:32 AM This report has been signed electronically.
--- NOTE | 2023-12-23 09:13 | PCM.POST.ANE ---
Anesthesia: Postop Eval I Current Vital Signs Temperature: 97.1 F Pulse Rate: 71 Blood Pressure: 104/70 Respiratory Rate: 16 Pulse Ox: 96 Oxygen Delivery Method: Room Air Assessment Airway patent: Yes Spontaneous unlabored respirations: Yes Mental status: Asleep nausea: No Vomiting: No Anesthesia Complication: No Fluid Hydration Crystalloid volume administer (ml): 40 Total IV fluid infused: 40 Progress Note Anesthesia document: Postop Eval 1 completed: Yes
--- NOTE | 2023-12-23 09:34 | PCM.POSTANE2 ---
Anesthesia Postop Eval I Sum Postop Eval Completion status Anesthesia document: Postop Eval 1 completed: Yes Anesthesia Postop Eval I Summary Anesthesia Postop Eval I Summary: Anesthesia Postop Eval I: Assessment Summary Airway patent Yes 12/23/23 09:14 [email or web address] Spontaneous unlabored Yes 12/23/23 09:14 [email or web address] respirations Mental status Asleep 12/23/23 09:14 [email or web address] nausea No 12/23/23 09:14 [email or web address] Vomiting No 12/23/23 09:14 [email or web address] Anesthesia Postop Eval I: Fluid Summary Crystalloid volume administer 40 12/23/23 09:14 [email or web address] (ml) Colloids volume administered ( ml) Blood Product volume administered (ml) Total IV fluid infused 40 12/23/23 09:14 [email or web address] Anesthesia Postop Eval I: Summary Notes Anesthesia Complication No 12/23/23 09:14 [email or web address] Anesthesia Complication Comment: Post-operative progress note Anesthesia: Postop Eval II Evaluation Mental status: Awake Pain Level: 0 nausea: No Vomiting: No
== END 2023-12-23 09:52 | disposition home or self-care (01) ==
LOC: EN 08:01 → AC 08:02
PROVIDERS: PCP Family Medicine; Referring Provider Family Medicine; Visit Provider Internal Medicine Gastroenterology
PROC: 0DJD8ZZ Inspection of Lower Intestinal Tract, Via Natural or Artificial Opening Endoscopic (ICD-10-PCS; CPT 45378; principal; 2023-12-23 08:55)
DX: Z12.11 Encounter for screening for malignant neoplasm of colon (principal); J44.9 Chronic obstructive pulmonary disease, unspecified; K21.9 Gastro-esophageal reflux disease without esophagitis; E78.00 Pure hypercholesterolemia, unspecified; K57.30 Diverticulosis of large intestine without perforation or abscess without bleeding; Z79.899 Other long term (current) drug therapy; Z86.0100 Personal history of colon polyps, unspecified; Z87.891 Personal history of nicotine dependence
CPT/HCPCS: 45378; A4216; J2405

== ENCOUNTER → 2024-04-15 | Outpatient (CLI) | payer MEDICARE, SELFPAY ==
--- NOTE | 2024-04-15 11:01 | US_ITS ---
PROCEDURE: ULTRASOUND POST VOID RESIDUAL BLADDER REASON FOR EXAM: Incomplete bladder emptying PROCEDURE: Pre-voiding bladder volume: 112 mL. Postvoiding volume: 31 mL. Voided volume: 81 mL. Bladder wall: 0.2 cm in thickness. Masses: Unremarkable. Calculi: Unremarkable. Right ureteral jet: Visualized. Left ureteral jet: Visualized. US/Post Void Residual Bladder IMPRESSION: Unremarkable ultrasound of the urinary bladder. Reading Location: [facility]
== END | disposition home or self-care (01) ==
LOC: US 10:30
PROVIDERS: PCP Family Medicine; Referring Provider Family Medicine; Visit Provider Family Medicine
DX: N40.1 Benign prostatic hyperplasia with lower urinary tract symptoms (principal); R33.8 Other retention of urine
CPT/HCPCS: 51798

== ENCOUNTER → 2024-06-30 | Outpatient (CLI) | payer MEDICARE, SELFPAY ==
[2024-06-30 15:55] LABS: Absolute Lymphocyte Count 2.23 X10^3/uL (0.83-4.51); Basophil# 0.05 X10^3/uL; Basophil% 0.8 % (0-1); Eosinophil# 0.12 X10^3/uL; Hemoglobin 15.5 g/dL (13.0-16.5); Lymphocyte # 2.23 X10^3/ul (0.83-4.51); Lymphocyte % 37.3 % (19-41); Mean Corpuscular Hgb 28.9 pg (27.0-32.0); Mean Corpuscular Volume 87.7 fL (80-94); Mean Platelet Vol. 10.2 fl (6.2-12.0); Monocyte# 0.61 X10^3/uL; Monocyte% 10.2 % (0-10); NRBC Flagged by Analyzer 0 % (0-5); Neutrophil # 2.95 X10^3/uL (2.7-7.7); Neutrophil % 49.4 % (47-70); Platelet Count 188 K/mm3 (150-450); RBC Distribution Width CV 13.8 % (11.6-14.6); Red Blood Count 5.36 M/mm3 (4.6-6.2)
[2024-06-30 16:53] LABS: ALB/GLOB Ratio 1.5 RATIO (0.9-2.4); AST(SGOT) 23 U/L (<=37); Alanine Aminotransfer ALT/SGPT 24 U/L (<=46); Albumin, Serum 4.2 g/dL (3.4-4.8); Alkaline Phosphatase 71 U/L (40-129); Anion Gap 10 (5-15); BUN 16 mg/dL (4-19); BUN/Creat Ratio 17.5 RATIO (10-20); Calcium,Total 9.6 mg/dL (7.6-11.0); Carbon Dioxide 23.6 mmol/L (21.0-32.0); Chloride 106 mmol/L (98-108); Cholesterol 156 mg/dL (<=200); Creatinine, Serum 0.89 mg/dL (0.70-1.20); EST Glomerular Filtration Rate 95 (>60); Globulin 2.8 g/dL (2.2-4.2); Glucose 91 mg/dL (70-99); High Density Lipoprotein 38 mg/dL; Low Density Lipoprotein Calc. 83 mg/dL; PSA,Total - Annual Screen 0.54 ng/mL (0.02-4.00); Potassium 4.1 mmol/L (3.3-5.1); Protein, Total 7.1 g/dL (5.9-8.4); Sodium Level 140 mmol/L (133-145); Total Bilirubin 0.95 mg/dL (0.00-1.30); Triglycerides 174 mg/dL; Very Low Density Lipoprotein 35 mg/dL (5-40); cholesterol:hdl ratio screen 4.07
[2024-06-30 17:21] LABS: Hemoglobin A1c 5.7 % (<=5.6)
== END | disposition home or self-care (01) ==
PROVIDERS: PCP Family Medicine; Referring Provider Family Medicine; Visit Provider Family Medicine
DX: Z12.5 Encounter for screening for malignant neoplasm of prostate (principal); E78.5 Hyperlipidemia, unspecified; R73.02 Impaired glucose tolerance (oral)
CPT/HCPCS: 36415; 80053; 80061; 83036; 84153; 85025; G0103

== ENCOUNTER 2024-11-14 16:42 | Emergency (ER) | payer MEDICARE, SELFPAY ==
[2024-11-14 16:43] VITALS: BP 113/75; PULSE 102; RESP 18; TEMP 36.9; O2SAT 97; BMI 26.2
--- NOTE | 2024-11-14 17:27 | EKG12_ITS ---
Test Reason : sob Blood Pressure : */* mmHG Vent. Rate : 85 BPM Atrial Rate : 85 BPM P-R Int : 148 ms QRS Dur : 84 ms QT Int : 350 ms P-R-T Axes : 58 -11 51 degrees QTcB Int : 416 ms Normal sinus rhythm Normal ECG Confirmed by AMY HO, DIANN ([id number]), assistant editor JOE CHAPMAN ([id number]) on 11/15/2024 8:31:20 AM Referred By: Confirmed By: DIANN REYES MD
--- NOTE | 2024-11-14 17:27 | ED.VIS.DYS ---
HPI History of Present Illness Chief Complaint: Cold Sx Narrative Narrative: 64-year-old male who denies significant past medical history presents with cough and shortness of breath that has had for the last 4 days. States he has had waxing and waning fever, as well as shortness of breath and dry cough. Started out with nasal and head congestion. 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 He states that he called this person and they were diagnosed with a bronchitis. He has had increasing shortness of breath and dry cough with continued nasal congestion. States he started having muscle aches and right sided chest pain/muscle pain. No nausea or vomiting, no diaphoresis, no abdominal pain, no exacerbating or alleviating factors. 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) COPD (chronic obstructive pulmonary disease) Wears glasses Wears partial dentures Prostate disease High cholesterol History of hiatal hernia Gastric reflux Former smoker Home Medications ?Medication ?Instructions ?Recorded ?Last Taken ?Type atorvastatin 10 mg tablet 10 mg PO QHS HLD 10/29/21 12/20/23 History calcium carbonate 600 mg PO DAILY SUPPLEMENT 10/29/21 12/20/23 History pantoprazole 40 mg tablet,delayed 40 mg PO DAILY GERD 10/29/21 12/22/23 History release sildenafil 50 mg tablet 50 mg PO DAILY PRN Erectile 10/29/21 12/23/21 History Dysfunction Allergy/AdvReac Type Severity Reaction Status Date / Time Penicillins Allergy Rash Verified 11/14/24 16:43 Family History Father Cancer lung Surgical History Hx of transurethral resection of prostate History of esophagogastroduodenoscopy (EGD) Hx of colonoscopy Hx of inguinal hernia repair Hx of vasectomy Social History household members: spouse current occupational status: retired Smoking Status: Former smoker substance use type: does not use ROS ROS ED ROS Narrative Review of systems positive for nasal congestion and runny nose for 4 days as well as dry cough, right upper chest pain and discomfort. Subjective fever. No nausea or vomiting. No abdominal pain. No exacerbating or alleviating factors. No diaphoresis. EXAM Physical Exam Narrative Exam Narrative: Afebrile. Vital signs noted. Nontoxic-appearing. Cardiovascular examination reveals intermittent tachycardia. Lungs are clear to auscultation bilaterally. No wheezing or stridor. Abdomen is soft and nontender without any pain in the right upper quadrant, no guarding or rebound. Neurological examination nonfocal, nonlateralizing. No pedal edema appreciated bilaterally. Const Vital Signs: 11/14/24 16:43 11/14/24 17:31 11/14/24 17:40 Temperature 98.5 F 98.5 F Temperature Source Oral Oral Pulse Rate 102 H 91 Respiratory Rate 18 22 H Respiratory Effort Short of Breath Respiratory Depth Normal Respiratory Pattern Normal Blood Pressure 113/75 117/100 H Blood Pressure Mean 87 105 Pulse Ox 97 99 Oxygen Delivery Method Room Air Room Air Room Air 11/14/24 17:45 Temperature Temperature Source Pulse Rate 85 Respiratory Rate 20 H Respiratory Effort Respiratory Depth Respiratory Pattern Normal Blood Pressure Blood Pressure Mean Pulse Ox Oxygen Delivery Method MDM MDM MDM Narrative Medical decision making narrative: The differential diagnosis includes but not limited to pneumonia versus pneumothorax versus bronchitis/URI versus viral syndrome. Regarding his right upper chest pain, I have lower suspicion for ACS because the history and physical does not support this. EKG will be obtained to help rule out STEMI. Chest x-ray 2 views will be obtained to rule out pneumonia or pneumothorax, additionally history and physical does not support pneumothorax and he has equal breath sounds bilaterally. Oxygen 97% on room air. I have low suspicion for any gallbladder pathology causing diaphragmatic irritation causing right shoulder pain as his abdomen is soft and nontender without guarding or rebound. He was administered a DuoNeb aerosolized treatment. In discussion with the patient, he will also be swabbed for COVID, influenza, and RSV. On my individual interpretation of the chest x-ray in 2 views there is no evidence of an acute pneumonia or pneumothorax. I reviewed the radiology report which confirms my independent interpretation. I reviewed his respiratory swab and he is positive for influenza A. I feel he is outside the window for Tamiflu as he started feeling ill on Wednesday, 4 days ago. I do not feel antibiotics are indicated. EKG was obtained and interpreted by myself independently as normal sinus rhythm at 85 bpm without ectopy or acute ST changes. No STEMI. No significant change from previous. Upon repeat examination, he states he feels the same. Pulse ox is 99% on room air. Do not feel he needs admission to the hospital. Additionally he was offered an albuterol inhaler but declined. He was told to follow-up with his primary care provider if not improving within 1 week. Drink plenty of oral fluids and rest. Return with new or worsening symptoms. [id number] analgesics as needed. Disposition is discharged home in stable condition. History & Record Review Discussion w/independent historian: Patient Radiography Diagnostic Testing: Clinical Impression(s) from Imaging Studies Chest X-Ray 11/14/24 17:54 IMPRESSION: No evidence of acute cardiopulmonary disease. Moderate-advanced chronic emphysematous lung changes. Reading Location: [id number] Discharge Plan Triage Chief Complaint: Cold Sx ED Provider: Donn Cerrato Dx/Rx/DC Orders Clinical Impression: Influenza A, Viral syndrome Instructions: ED Influenza (Adult), ED Viral Syndrome (Adult) Prescriptions: No Action sildenafil 50 mg Tablet 50 mg PO DAILY PRN (Reason: Erectile Dysfunction) Rx Instructions: administer 30 minutes to 4 hours before activity atorvastatin 10 mg Tablet 10 mg PO QHS calcium carbonate 600 mg calcium (1,500 mg) Tablet 600 mg PO DAILY pantoprazole 40 mg Tablet,Delayed Release (Dr/Ec) 40 mg PO DAILY Primary Care Provider: Spencer Rahman Referrals: Spencer Rahman MD [Primary Care Provider, Family Practice] - 1 Week if not improving Activity Restrictions/Additional Instructions: Drug plenty of oral fluids and get plenty of rest. Return to the emergency department with increased difficulty breathing, new or worsening symptoms. Tylenol and/or ibuprofen as needed for pain. Follow-up with your primary care provider if not improving within 1 week. Print Language: Nigerian Disposition Disposition: Home, Self Care
[2024-11-14 17:31] VITALS: BP 117/100; PULSE 91; RESP 22; TEMP 36.9; O2SAT 99
[2024-11-14 17:40] VITALS: O2SAT 97
[2024-11-14 17:45] VITALS: PULSE 85; RESP 20
--- NOTE | 2024-11-14 17:54 | RAD_ITS ---
PROCEDURE: CHEST PA AND LATERAL 11/14/2024 REASON FOR EXAM: COUGH, SHORTNESS OF BREATH TECHNIQUE: Procedure Code: RADCXR Modality: DX Procedure: CHEST PA AND LATERAL COMPARISON: CT chest 07/08/2023 FINDINGS: Lungs/Pleura: No appreciable focal airspace consolidation, pneumothorax or pleural effusion. Moderate-advanced chronic interstitial emphysematous lung changes. Heart/Mediastinum: Normal in size. Bones/Soft tissues: Mild degenerative changes of the spine. RAD/Chest PA and Lateral IMPRESSION: No evidence of acute cardiopulmonary disease. Moderate-advanced chronic emphysematous lung changes. Reading Location: [id number]
--- OUTSIDE RECORDS SUMMARY | 2024-11-14 18:17 | XMS RPT_ITS | CCD ---
Author Organization [facility] Care Team Providers Care Office Professionals Name Role Phone RITCHIE RODRIGUEZ Primary Care Unavailable COON, NARA Referring Unavailable YOUNGRITCHIE Primary Care Unavailable COON, NARA Referring Unavailable YOUNG, RITCHIE LÓPEZ Primary Care Unavailable COON, NARA Referring Unavailable COON, NARA Referring Unavailable RITCHIE RODRIGUEZ Primary Care Unavailable SALBADOR CHEATHAM MD Attending Unavailable SALBADOR CHEATHAM MD Primary Care Unavailable SALBADOR CHEATHAM MD Admitting Unavailable Dr. Spencer Rahman Primary Care Provider Dr. Balwinder Chanel Attending Provider [phone] Dr. Marcos Smith Referring Provider Dr. Spencer Rahman Referring Provider [phone] Dr. Luis Eduardo Delcid Attending Provider Dr. Luis Eduardo Delcid Other Provider Dr. Spencer Rahman Primary Care Provider Dr. Spencer Rahman Referring Provider Dr. Luis Eduardo Delcid Attending Provider Dr. Spencer Rahman MD Primary Care Provider Dr. Spencer Rahman MD Attending Provider Dr. Spencer Rahman MD Referring Provider Ciro Rosales Attending Provider Friend, [employer] Consulting Unavailable FriendGabo Attending Unavailable Spencer Rahman Referring Unavailable Spencer Rahman Primary Care Unavailable Spencer Rahman Attending Unavailable Spencer Rahman Referring Unavailable Spencer Rahman Primary Care Unavailable Spencer Rahman Primary Care Unavailable Ciro Rosales Attending Unavailable Spencer Rahman Referring Unavailable Spencer Rahman Primary Care Unavailable Maribel Sinclair Attending Unavailable FriendGabo Attending Unavailable Spencer Rahman Referring Unavailable Spencer Rahman Primary Care Unavailable Spencer Rahman Attending Unavailable Spencer Rahman Referring Unavailable Spencer Rahman Primary Care Unavailable Ciro Rosales Attending Unavailable Spencer Rahman Referring Unavailable Spencer Rahman Primary Care Unavailable Allergies Allergy Classification Reported Allergen(s) Allergy Type Date of Onset Reaction(s) Facility (6 sources) Penicillins Allergy to substance 12-09-2021 Rash [facility] (1 source) Penicillins Drug allergy (disorder) 12-23-2023 [facility] Repository Medications Current Medications Medication Drug Class(es) Dates Sig (Normalized) Sig (Original) atorvastatin 10 mg oral tablet (6 sources) HMG-CoA Reductase Inhibitor Start: 10-29-2021 take 1 tablet by mouth at bedtime Atorvastatin 10 mg Tablet Active 10 mg PO AT BEDTIME October 29, 2021 12:00am calcium carbonate 1500 mg oral tablet (6 sources) Start: 10-29-2021 take 1 tablet by mouth once daily Calcium Carbonate 600 mg calcium (1,500 mg) Tablet Active 600 mg PO DAILY October 29, 2021 12:00am pantoprazole 40 mg delayed release oral tablet (6 sources) Proton Pump Inhibitor Start: 10-29-2021 take 1 tablet by mouth once daily Pantoprazole 40 mg Tablet,Delayed Release (Dr/Ec) Active 40 mg PO DAILY October 29, 2021 12:00am sildenafil 50 mg oral tablet (6 sources) Phosphodiesterase 5 Inhibitor Start: 10-29-2021 Sildenafil 50 mg Tablet Active 50 mg PO DAILY as needed for Erectile Dysfunction October 29, 2021 12:00am administer 30 minutes to 4 hours before activity Completed/Discontinued Medications Medication Drug Class(es) Dates Sig (Normalized) Sig (Original) acyclovir 800 mg oral tablet (4 sources) Herpesvirus Nucleoside Analog DNA Polymerase Inhibitor, Herpes Simplex Virus Nucleoside Analog DNA Polymerase Inhibitor, Herpes Zoster Virus Nucleoside Analog DNA Polymerase Inhibitor Start: 12-26-2021 End: 11-16-2023 take 1 tablet by mouth five times daily Acyclovir 800 mg tablet Discontinued 800 mg PO 5 TIMES DAILY December 26, 2021 12:00am November 16, 2023 12:48pm ciprofloxacin 500 mg oral tablet (5 sources) Quinolone Antimicrobial Start: 12-24-2021 End: 11-16-2023 take 1 tablet by mouth twice daily Ciprofloxacin Hcl (Cipro) 500 mg tablet Discontinued 500 mg PO TWICE A DAY December 24, 2021 12:00am November 16, 2023 12:48pm predniSONE 20 mg oral tablet (4 sources) Start: 12-26-2021 End: 11-16-2023 take 2 tablets by mouth once daily Prednisone 20 mg tablet Discontinued 40 mg PO DAILY 14 December 26, 2021 12:00am November 16, 2023 12:48pm Start: 12-26-2021 take 40 mg by mouth once daily Prednisone Active 40 MG PO DAILY 14 December 26, 2021 12:00am Problems Active Problems Problem Classification Problem Date Documented Da te Episodic/Chronic Abdominal hernia (10 sources) Hiatal hernia; Translations: [Diaphragmatic hernia without obstruction or gangrene] Episodic Esophageal disorders (17 sources) Esquivel's esophagus; Translations: [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] Chronic Comment on above: CONTROLLED WITH MED Hyperplasia of prostate (1 source) Benign prostatic hyperplasia with lower urinary tract symptoms; Translations: [Benign prostatic hyperplasia with lower urinary tract symptoms] Onset: 04-26-2024 Chronic Other and unspecified benign neoplasm (6 sources) History of polyp of colon; Translations: [Personal history of colonic polyps] 11-10-2021 Episodic Other and unspecified benign neoplasm (3 sources) Personal history of colonic polyps; Translations: [Personal history of colonic polyps] Episodic Other nervous system disorders (4 sources) Cortez's palsy; 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 Episodic Other screening for suspected conditions (not mental disorders or infectious disease) (4 sources) Patient encounter status; Translations: [Encounter for screening for malignant neoplasm of colon] Onset: 11-16-2023 11-16-2023 Episodic Past or Other Problems Problem Classification Problem Date Documented Date Episodic/Chronic Administrative/social admission (2 sources) Administrative reason for encounter; Translations: [Encounter for other administrative examinations] Onset: 11-10-2023 11-10-2023 Episodic Results Test Name Value Interpretation Reference Range Facility Absolute lymphocyte countOrd ered By: Spencer Rahman on 06-30-2024 Lymphocytes Auto (Unsp spec) [#/Vol] 2.23 10*3/uL 0.83-4.51 [facility] Absolute neutrophil countOrd ered By: Spencer Rahman on 06-30-2024 Neutrophils (Bld) [#/Vol] 3.0 10*3/uL 2.0-7.7 [facility] Anion gap in Serum or Plasma Ordered By: Spencer Rahman on 06-30-2024 Anion gap [Moles/Vol] 10 mmol/L 5-15 [facility] Automated lymphocyte count a s percentage of total leukocytesOrdered By: Spencer Rahman on 06-30-2024 Lymphocytes/100 WBC Auto (Unsp spec) 37.3 % - [facility] BUN/creatinine ratioOrdered By: Spencer Rahman on 06-30-2024 Urea nitrogen/Creatinine [Mass ratio] 17.5 mg/mg 10-20 [facility] Basophil percentageOrdered B y: Spencer Rahman on 06-30-2024 Basophils/100 WBC (Bld) 0.8 % 0-1 [facility] Bilirubin, totalOrdered By: Spencer Rahman on 06-30-2024 Bilirubin [Mass/Vol] 0.95 mg/dL 0.00-1.30 [facility] CBC W/Diff, Automatedon Absolute Lymph 2.23 X10 3/uL Normal 0.83-4.51 [facility] Comment on above: Order Comment: Order Date: 06/30/24 Order Info: [id number] - CBCD Performed By: #### L 501.9910, L500.4100, L500.4050, L501.9985, L100.0100 #### [facility] [address] [place], [address] Absolute Neut 3.0 X10 3/uL Normal 2.0-7.7 [facility] Comment on above: Order Comment: Order Date: 06/30/24 Order Info: [id number] - CBCD Performed By: #### L 501.9910, L500.4100, L500.4050, L501.9985, L100.0100 #### [facility] [address] [place], [address] Basophils/100 WBC (Bld) 0.8 % Normal 0-1 [facility] Comment on above: Order Comment: Order Date: 06/30/24 Order Info: [id number] - CBCD Performed By: #### L 501.9910, L500.4100, L500.4050, L501.9985, L100.0100 #### [facility] [address] [place], [address] Eosinophils/100 WBC (Bld) 2.0 % Normal 0-5 [facility] Comment on above: Order Comment: Order Date: 06/30/24 Order Info: [id number] - CBCD Performed By: #### L 501.9910, L500.4100, L500.4050, L501.9985, L100.0100 #### [facility] [address] [place], [address] Erythrocyte distribution width (RBC) [Ratio] 13.8 % Normal 11.6-14.6 [facility] Comment on above: Order Comment: Order Date: 06/30/24 Order Info: [id number] - CBCD Performed By: #### L 501.9910, L500.4100, L500.4050, L501.9985, L100.0100 #### [facility] [address] [place], [address] Hematocrit (Bld) [Volume fraction] 47.0 % Normal 40-54 [facility] Comment on above: Order Comment: Order Date: 06/30/24 Order Info: [id number] - CBCD Performed By: #### L 501.9910, L500.4100, L500.4050, L501.9985, L100.0100 #### [facility] [address] [place], [address] Hemoglobin (Bld) [Mass/Vol] 15.5 g/dL Normal 13.0-16.5 [facility] Comment on above: Order Comment: Order Date: 06/30/24 Order Info: [id number] - CBCD Performed By: #### L 501.9910, L500.4100, L500.4050, L501.9985, L100.0100 #### [facility] [address] [place], [address] IG% 0.300 Normal 0.0-0.9 [facility] Comment on above: Order Comment: Order Date: 06/30/24 Order Info: [id number] - CBCD Result Comment: IG% - Immature Granulocytes (promyelocytes, myelocytes and metamyelocytes) > 1% indicates that a LEFT SHIFT is Present. Performed By: #### L 501.9910, L500.4100, L500.4050, L501.9985, L100.0100 #### [facility] [address] [place], [address] Lymphocytes/100 WBC (Bld) 37.3 % Normal 19-41 [facility] Comment on above: Order Comment: Order Date: 06/30/24 Order Info: [id number] - CBCD Performed By: #### L 501.9910, L500.4100, L500.4050, L501.9985, L100.0100 #### [facility] [address] [place], [address] MCH (RBC) [Entitic mass] 28.9 pg Normal 27.0-32.0 [facility] Comment on above: Order Comment: Order Date: 06/30/24 Order Info: [id number] - CBCD Performed By: #### L 501.9910, L500.4100, L500.4050, L501.9985, L100.0100 #### [facility] [address] [place], [address] MCHC (RBC) [Mass/Vol] 33.0 g/dL Normal 32-36 [facility] Comment on above: Order Comment: Order Date: 06/30/24 Order Info: [id number] - CBCD Performed By: #### L 501.9910, L500.4100, L500.4050, L501.9985, L100.0100 #### [facility] [address] [place], [address] MCV (RBC) [Entitic vol] 87.7 fL Normal 80-94 [facility] Comment on above: Order Comment: Order Date: 06/30/24 Order Info: [id number] - CBCD Performed By: #### L 501.9910, L500.4100, L500.4050, L501.9985, L100.0100 #### [facility] [address] [place], [address] Monocytes/100 WBC (Bld) 10.2 % High 0-10 [facility] Comment on above: Order Comment: Order Date: 06/30/24 Order Info: [id number] - CBCD Performed By: #### L 501.9910, L500.4100, L500.4050, L501.9985, L100.0100 #### [facility] [address] [place], [address] Neutrophils/100 WBC (Bld) 49.4 % Normal 47-70 [facility] Comment on above: Order Comment: Order Date: 06/30/24 Order Info: [id number] - CBCD Performed By: #### L 501.9910, L500.4100, L500.4050, L501.9985, L100.0100 #### [facility] [address] [place], [address] Nucleated RBC (Bld) [#/Vol] 0 10*3/uL Normal 0-5 [facility] Comment on above: Order Comment: Order Date: 06/30/24 Order Info: [id number] - CBCD Performed By: #### L 501.9910, L500.4100, L500.4050, L501.9985, L100.0100 #### [facility] [address] [place], [address] Platelet mean volume (Bld) [Entitic vol] 10.2 fL Normal 6.2-12.0 [facility] Comment on above: Order Comment: Order Date: 06/30/24 Order Info: [id number] - CBCD Performed By: #### L 501.9910, L500.4100, L500.4050, L501.9985, L100.0100 #### [facility] [address] [place], [address] Platelets (Bld) [#/Vol] 188 10*3/uL Normal 150-450 [facility] Comment on above: Order Comment: Order Date: 06/30/24 Order Info: [id number]- - CBCD Performed By: #### L 501.9910, L500.4100, L500.4050, L501.9985, L100.0100 #### [facility] [address] [place], [address] RBC (Bld) [#/Vol] 5.36 10*6/uL Normal 4.6-6.2 [facility] Comment on above: Order Comment: Order Date: 06/30/24 Order Info: [id number] - CBCD Performed By: #### L 501.9910, L500.4100, L500.4050, L501.9985, L100.0100 #### [facility] [address] [place], [address] RDW SD 44.0 fl High 35.1-43.9 [facility] Comment on above: Order Comment: Order Date: 06/30/24 Order Info: [id number] - CBCD Performed By: #### L 501.9910, L500.4100, L500.4050, L501.9985, L100.0100 #### [facility] [address] [place], [address] WBC (Bld) [#/Vol] 6.0 10*3/uL Normal 4.4-11.0 [facility] Comment on above: Order Comment: Order Date: 06/30/24 Order Info: [id number] - CBCD Performed By: #### L 501.9910, L500.4100, L500.4050, L501.9985, L100.0100 #### [facility] [address] [place], [place], [id number] Calculated very low density lipoprotein (VLDL) cholesterol measurementOrdered By: Spencer Rahman on 06-30-2024 Calculated very low density lipoprotein (VLDL) cholesterol measurement 35 mg/dL 5-40 [facility] Carbon dioxide, total [Moles /volume] in Central venous bloodOrdered By: Spencer Rahman on 06-30-2024 CO2 [Moles/Vol] 23.6 mmol/L 21.0-32.0 [facility] Chloride assayOrdered By: Fabiola Rahman on 06-30-2024 Chloride [Moles/Vol] 106 mmol/L 98-108 [facility] Comprehensive Metabolic Prof ilon 06-30-2024 Albumin [Mass/Vol] 4.2 g/dL Normal 3.4-4.8 [facility] Comment on above: Order Comment: Order Date: 06/30/24 Order Info: [id number] - CMP Order Info: [id number] - LIPID Order Info: [id number] - PSA Performed By: #### L 501.9910, L500.4100, L500.4050, L501.9985, L100.0100 #### [facility] [address] [place], [place], [id number] Albumin/Globulin [Mass ratio] 1.5 {ratio} Normal 0.9-2.4 [facility] Comment on above: Order Comment: Order Date: 06/30/24 Order Info: [id number] - CMP Order Info: [id number] - LIPID Order Info: [id number] - PSA Performed By: #### L 501.9910, L500.4100, L500.4050, L501.9985, L100.0100 #### [facility] [address] [place], [address] ALK PHOS 71 U/L Normal 40-129 [facility] Comment on above: Order Comment: Order Date: 06/30/24 Order Info: [id number]- - CMP Order Info: [id number] - LIPID Order Info: [id number] - PSA Performed By: #### L 501.9910, L500.4100, L500.4050, L501.9985, L100.0100 #### [facility] [address] [place], [address] ALT [Catalytic activity/Vol] 24 U/L Normal <=46 [facility] Comment on above: Order Comment: Order Date: 06/30/24 Order Info: [id number] - CMP Order Info: [id number] - LIPID Order Info: [id number] - PSA Performed By: #### L 501.9910, L500.4100, L500.4050, L501.9985, L100.0100 #### [facility] [address] [place], [address] AST [Catalytic activity/Vol] 23 U/L Normal <=37 [facility] Comment on above: Order Comment: Order Date: 06/30/24 Order Info: [id number]- - CMP Order Info: [id number] - LIPID Order Info: [id number] - PSA Performed By: #### L 501.9910, L500.4100, L500.4050, L501.9985, L100.0100 #### [facility] [address] [place], [address] Bilirubin [Mass/Vol] 0.95 mg/dL Normal 0.00-1.30 [facility] Comment on above: Order Comment: Order Date: 06/30/24 Order Info: [id number] - CMP Order Info: [id number] - LIPID Order Info: [id number] - PSA Performed By: #### L 501.9910, L500.4100, L500.4050, L501.9985, L100.0100 #### [facility] [address] [place], [address] BUN/CRE 17.5 RATIO Normal 10-20 [facility] Comment on above: Order Comment: Order Date: 06/30/24 Order Info: [id number] - CMP Order Info: [id number] - LIPID Order Info: [id number] - PSA Performed By: #### L 501.9910, L500.4100, L500.4050, L501.9985, L100.0100 #### [facility] [address] [place], [address] Calcium [Mass/Vol] 9.6 mg/dL Normal 7.6-11.0 [facility] Comment on above: Order Comment: Order Date: 06/30/24 Order Info: [id number]- - CMP Order Info: [id number] - LIPID Order Info: [id number] - PSA Performed By: #### L 501.9910, L500.4100, L500.4050, L501.9985, L100.0100 #### [facility] [address] [place], [address] Chloride [Moles/Vol] 106 mmol/L Normal 98-108 [facility] Comment on above: Order Comment: Order Date: 06/30/24 Order Info: [id number] - CMP Order Info: [id number] - LIPID Order Info: [id number] - PSA Performed By: #### L 501.9910, L500.4100, L500.4050, L501.9985, L100.0100 #### [facility] [address] [place], [address] CO2 [Moles/Vol] 23.6 mmol/L Normal 21.0-32.0 [facility] Comment on above: Order Comment: Order Date: 06/30/24 Order Info: [id number] - CMP Order Info: [id number] - LIPID Order Info: [id number] - PSA Performed By: #### L 501.9910, L500.4100, L500.4050, L501.9985, L100.0100 #### [facility] [address] [place], [address] Creatinine [Mass/Vol] 0.89 mg/dL Normal 0.70-1.20 [facility] Comment on above: Order Comment: Order Date: 06/30/24 Order Info: [id number] - CMP Order Info: - LIPID Order Info: [id number] - PSA Performed By: #### L 501.9910, L500.4100, L500.4050, L501.9985, L100.0100 #### [facility] [address] [place], [address] GAP 10 Normal 5-15 [facility] Comment on above: Order Comment: Order Date: 06/30/24 Order Info: [id number] - CMP Order Info: - LIPID Order Info: [id number] - PSA Performed By: #### L 501.9910, L500.4100, L500.4050, L501.9985, L100.0100 #### [facility] [address] [place], [address] GFR/1.73 sq M.predicted among non-blacks MDRD (S/P/Bld) [Vol rate/Area] 95 mL/min/{1.73_m2} Normal >60 [facility] Comment on above: Order Comment: Order Date: 06/30/24 Order Info: [id number] - CMP Order Info: [id number] - LIPID Order Info: [id number] - PSA Result Comment: mL/m in/1.73m2 CKD-EPI Creatinine Equation (2020) Performed By: #### L 501.9910, L500.4100, L500.4050, L501.9985, L100.0100 #### [facility] [address] [place], [address] Globulin (S) [Mass/Vol] 2.8 g/dL Normal 2.2-4.2 [facility] Comment on above: Order Comment: Order Date: 06/30/24 Order Info: [id number] - CMP Order Info: [id number] - LIPID Order Info: [id number] - PSA Performed By: #### L 501.9910, L500.4100, L500.4050, L501.9985, L100.0100 #### [facility] [address] [place], [address] Glucose [Mass/Vol] 91 mg/dL Normal 70-99 [facility] Comment on above: Order Comment: Order Date: 06/30/24 Order Info: [id number] - CMP Order Info: - LIPID Order Info: [id number] - PSA Performed By: #### L 501.9910, L500.4100, L500.4050, L501.9985, L100.0100 #### [facility] [address] [place], [address] Potassium [Moles/Vol] 4.1 mmol/L Normal 3.3-5.1 [facility] Comment on above: Order Comment: Order Date: 06/30/24 Order Info: [id number] - CMP Order Info: [id number] - LIPID Order Info: [id number] - PSA Performed By: #### L 501.9910, L500.4100, L500.4050, L501.9985, L100.0100 #### [facility] [address] [place], [address] Sodium [Moles/Vol] 140 mmol/L Normal 133-145 [facility] Comment on above: Order Comment: Order Date: 06/30/24 Order Info: 07 - CMP Order Info: [id number] - LIPID Order Info: [id number] - PSA Performed By: #### L 501.9910, L500.4100, L500.4050, L501.9985, L100.0100 #### [facility] [address] [place], [place], [address] T PROT 7.1 g/dL Normal 5.9-8.4 [facility] Comment on above: Order Comment: Order Date: 06/30/24 Order Info: [id number] - CMP Order Info: [id number] - LIPID Order Info: [id number] - PSA Performed By: #### L 501.9910, L500.4100, L500.4050, L501.9985, L100.0100 #### [facility] [address] [place], [address] Urea nitrogen [Mass/Vol] 16 mg/dL Normal 4-19 [facility] Comment on above: Order Comment: Order Date: 06/30/24 Order Info: [id number] - CMP Order Info: [id number] - LIPID Order Info: [id number] - PSA Performed By: #### L 501.9910, L500.4100, L500.4050, L501.9985, L100.0100 #### [facility] [address] [place], [place], [address] Eosinophil percentageOrdered By: Spencer Rahman on 06-30-2024 Eosinophils/100 WBC (Bld) 2.0 % 0-5 [facility] Erythrocyte distribution wid th ratioOrdered By: Spencer Rahman on 06-30-2024 Erythrocyte distribution width (RBC) [Ratio] 13.8 % 11.6-14.6 [facility] Erythrocyte distribution wid th standard deviationOrdered By: Spencer Rahman on 06-30-2024 Erythrocyte distribution width (RBC) [Ratio] 44.0 fl High 35.1-43.9 [facility] Glomerular filtration rate ( GFR) estimation/1.73 sq m using serum, plasma, or whole bOrdered By: Spencer Rahman on 06-30-2024 GFR/1.73 sq M.predicted among non-blacks MDRD (S/P/Bld) [Vol rate/Area] 95 mL/min/{1.73_m2} >60 [facility] Comment on above: mL/min/1.73m2 CKD-EP I Creatinine Equation (2020) Hematocrit Auto (Bld) [Volum e fraction]Ordered By: Spencer Rahman on 06-30-2024 Hematocrit (Bld) [Volume fraction] 47.0 % 40-54 [facility] Hemoglobin A1con 06-30-2024 HbA1c (Bld) [Mass fraction] 5.7 % Normal <=5.6 [facility] Comment on above: Order Comment: Order Date: 06/30/24 Order Info: [id number] - A1C Result Comment: Norm al < 5.7 % Prediabetic 5.7 - 6.4 % Diabetic >or= 6.5 % Please note range changes. Performed By: #### L 501.9910, L500.4100, L500.4050, L501.9985, L100.0100 #### [facility] [place], [address] Hemoglobin A1c percentageOrd ered By: Spencer Rahman on 06-30-2024 HbA1c (Bld) [Mass fraction] 5.7 % <5.7 [facility] Comment on above: Normal < 5.7 % Predi abetic 5.7 - 6.4 % Diabetic >or= 6.5 % Please note range changes. Hemoglobin measurementOrdere d By: Spencer Rahman on 06-30-2024 Hemoglobin (Bld) [Mass/Vol] 15.5 g/dL 13.0-16.5 [facility] Immature granulocytes/100 WB C Auto (Bld)Ordered By: Spencer Rahman on 06-30-2024 Immature granulocytes/100 WBC (Bld) 0.300 % 0.0-0.9 [facility] Comment on above: IG% - Immature Granu locytes (promyelocytes, myelocytes and metamyelocytes) > 1% indicates that a LEFT SHIFT is Present. LDL calc ser/plasOrdered By: Spencer Rahman on 06-30-2024 Cholesterol in LDL [Mass/Vol] 83 mg/dL [facility] Comment on above: Trxwmaehis=592-532 m g/dL & Higher Houy=514 mg/dL or greater Laboratory - Chemistry and C hemistry - challengeOrdered By: Spencer Rahman on 06-30-2024 AST [Catalytic activity/Vol] 23 U/L <38 [facility] Lipid Profileon 06-30-2024 CHOL:HDL 4.07 Normal [facility] Comment on above: Order Comment: Order Date: 06/30/24 Order Info: [id number] - CMP Order Info: - LIPID Order Info: [id number] - PSA Performed By: #### L 501.9910, L500.4100, L500.4050, L501.9985, L100.0100 #### [facility] Laboratory [address] [place], [address] Cholesterol [Mass/Vol] 156 mg/dL Normal <=200 [facility] Comment on above: Order Comment: Order Date: 06/30/24 Order Info: [id number] - CMP Order Info: - LIPID Order Info: [id number] - PSA Result Comment: Chol esterol level, Desirable <200 mg/dL Borderline high cholesterol 200-239 mg/dL High cholesterol >=240 mg/dL Recommendations of the NCEP Adult Treatment Panel for the following risk-cutoff thresholds for the [place] population. Performed By: #### L 501.9910, L500.4100, L500.4050, L501.9985, L100.0100 #### [facility] [address] [place], [address] Cholesterol in HDL [Mass/Vol] 38 mg/dL Low [facility] Comment on above: Order Comment: Order Date: 06/30/24 Order Info: [id number]- - CMP Order Info: [id number] - LIPID Order Info: [id number] - PSA Result Comment: Trixie onal Cholesterol Education Program (NCEP) guidelines: <40 mg/dL: Low HDL-cholesterol (major risk factor for CHD) >= 60 mg/dL: High HDL-cholesterol (negative risk factor for CHD) HDL-cholesterol is affected by a number of factors, e.g. smoking, exercise, hormones, sex and age. Performed By: #### L 501.9910, L500.4100, L500.4050, L501.9985, L100.0100 #### [facility] [address] [place], [address] Cholesterol in LDL [Mass/Vol] 83 mg/dL Normal [facility] Comment on above: Order Comment: Order Date: 06/30/24 Order Info: [id number] - CMP Order Info: [id number] - LIPID Order Info: [id number] - PSA Result Comment: Bord ltqiqt=019-848 mg/dL Higher Sonw=916 mg/dL or greater Performed By: #### L 501.9910, L500.4100, L500.4050, L501.9985, L100.0100 #### [facility] [address] [place], [address] Cholesterol in VLDL [Mass/Vol] 35 mg/dL Normal 5-40 [facility] Comment on above: Order Comment: Order Date: 06/30/24 Order Info: [id number]- - CMP Order Info: [id number] - LIPID Order Info: [id number] - PSA Performed By: #### L 501.9910, L500.4100, L500.4050, L501.9985, L100.0100 #### [facility] [address] [place], [address] Triglyceride [Mass/Vol] 174 mg/dL Normal [facility] Comment on above: Order Comment: Order Date: 06/30/24 Order Info: [id number]- - CMP Order Info: [id number] - LIPID Order Info: [id number] - PSA Result Comment: The drugs N-Acetylcysteine and Metamizole may falsely depress this assay. Normal range: <150 mg/dL Borderline High: 150-199 mg/dL High: 200-499 mg/dL Very High: >500 mg/dL Performed By: #### L 501.9910, L500.4100, L500.4050, L501.9985, L100.0100 #### [facility] [address] [place], [address] MCV (mean corpuscular volume ) determinationOrdered By: Spencer Rahman on 06-30-2024 MCV (RBC) [Entitic vol] 87.7 fL 80-94 [facility] Mean corpuscular hemoglobin (MCH) determinationOrdered By: Spencer Rahman on 06-30-2024 MCH (RBC) [Entitic mass] 28.9 pg 27.0-32.0 [facility] Mean corpuscular hemoglobin concentration (MCHC) determinationOrdered By: Spencer Rahman on 06-30-2024 MCHC (RBC) [Mass/Vol] 33.0 g/dL 32-36 [facility] Mean platelet volume determi nationOrdered By: Spencer Rahman on 06-30-2024 Platelet mean volume (Bld) [Entitic vol] 10.2 fL 6.2-12.0 [facility] Monocyte percentageOrdered B y: Spencer Rahman on 06-30-2024 Monocytes/100 WBC (Bld) 10.2 % High 0-10 [facility] Neutrophil percentageOrdered By: Spencer Rahman on 06-30-2024 Neutrophils/100 WBC (Bld) 49.4 % 47-70 [facility] Nucleated red blood cell per centageOrdered By: Spencer Rahman on 06-30-2024 Nucleated RBC/100 WBC (Bld) [Ratio] 0 % 0-5 [facility] PSA,Total - Annual Screenon 06-30-2024 PSA,TOT SCREEN 0.54 ng/mL Normal 0.02-4.00 [facility] Comment on above: Order Comment: Order Date: 06/30/24 Order Info: [id number] - CMP Order Info: [id number] - LIPID Order Info: [id number] - PSA Result Comment: This test was performed using the [employer] tPSA method. Measured values of a patient??sample can vary depending on the testing procedure used. PSA values determined on patient samples by different testing procedures cannot be used interchangeably. If there is a change in PSA assays while monitoring therapy, sequential testing should be performed to confirm baseline values. Performed By: #### L 501.9910, L500.4100, L500.4050, L501.9985, L100.0100 #### [facility] [address] [place], [address] Platelet countOrdered By: Fabiola Rahman on 06-30-2024 Platelets (Bld) [#/Vol] 188 10*3/uL 150-450 [facility] Potassium measurement (mass/ volume)Ordered By: Spencer Rahman on 06-30-2024 Potassium (Unsp spec) [Mass/Vol] 4.1 mmol/L 3.3-5.1 [facility] RBC Auto (Bld) [#/Vol]Ordere d By: Spencer Rahman on 06-30-2024 RBC (Bld) [#/Vol] 5.36 10*6/uL 4.6-6.2 [facility] Screening total cholesterol/ high density lipoprotein (HDL) cholesterol ratioOrdered By: Spencer Rahman on 06-30-2024 Cholesterol.total/Chol esterol in HDL [Mass ratio] 4.07 {ratio} [facility] Serum creatinine measurement (mass/volume)Ordered By: Spencer Rahman on 06-30-2024 Creatinine [Mass/Vol] 0.89 mg/dL 0.70-1.20 [facility] Serum globulin measurementOr dered By: Spencer Rahman on 06-30-2024 Globulin (S) [Mass/Vol] 2.8 g/dL 2.2-4.2 [facility] Serum glucose measurement (m ass/volume)Ordered By: Spencer Rahman on 06-30-2024 Glucose [Mass/Vol] 91 mg/dL 70-99 [facility] Serum or plasma alanine mix otransferase (ALT) measurementOrdered By: Spencer Rahman on 06-30-2024 ALT [Catalytic activity/Vol] 24 U/L <47 [facility] Serum or plasma albumin bella urement (mass/volume)Ordered By: Spencer Rahman on 06-30-2024 Albumin [Mass/Vol] 4.2 g/dL 3.4-4.8 [facility] Serum or plasma albumin/glob ulin mass ratioOrdered By: Spencer Rahman on 06-30-2024 Albumin/Globulin [Mass ratio] 1.5 {ratio} 0.9-2.4 [facility] Serum or plasma alkaline jaden sphatase measurementOrdered By: Spencer Rahman on 06-30-2024 ALP [Catalytic activity/Vol] 71 U/L 40-129 [facility] Serum or plasma calcium bella urement (mass/volume)Ordered By: Spencer Rahman on 06-30-2024 Calcium [Mass/Vol] 9.6 mg/dL 7.6-11.0 [facility] Serum or plasma cholesterol in HDL measurement (mass/volume)Ordered By: Spencer Rahman on 06-30-2024 Cholesterol in HDL [Mass/Vol] 38 mg/dL Low >40 [facility] Comment on above: National Cholesterol Education Program (NCEP) guidelines:<40 mg/dL: Low HDL-cholesterol (major risk factor for CHD)>= 60 mg/dL: High HDL-cholesterol (negative risk factor for CHD)HDL-cholesterol is affected by a number of factors, e.g. smoking, exercise, hormones, sex and age. Serum or plasma cholesterol measurement (mass/volume)Ordered By: Spencer Rahman on 06-30-2024 Cholesterol [Mass/Vol] 156 mg/dL <201 [facility] Comment on above: Cholesterol level, D esirable <200 mg/dLBorderline high cholesterol 200-239 mg/dLHigh cholesterol >=240 mg/dLRecommendations of the NCEP Adult Treatment Panel for the following risk-cutoff thresholds for the [place] population. Serum or plasma urea nitroge n measurement (mass/volume)Ordered By: Spencer Rahman on 06-30-2024 Urea nitrogen [Mass/Vol] 16 mg/dL 4-19 [facility] Sodium levelOrdered By: Spencer Rahman on 06-30-2024 Sodium [Moles/Vol] 140 mmol/L 133-145 [facility] Total proteinOrdered By: Carlyle Rahman on 06-30-2024 Protein [Mass/Vol] 7.1 g/dL 5.9-8.4 [facility] Triglycerides measurementOrd ered By: Spencer Rahman on 06-30-2024 Triglyceride [Mass/Vol] 174 mg/dL <199 [facility] Comment on above: The drugs N-Acetylcy steine and Metamizole may falsely depress this assay. Normal range: <150 mg/dLBorderline High: 150-199 mg/dLHigh: 200-499 mg/dLVery High: >500 mg/dL White blood cell (WBC) count Ordered By: Spencer Rahman on 06-30-2024 WBC (Bld) [#/Vol] 6.0 10*3/uL 4.4-11.0 [facility] Office Visit Reporton [address] 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 Chief Complaint: TURP Allergies Penicillins Allergy (Verified 12/23/23 08:23) Rash Have you fallen in the past year?: No Office Procedures [facility] Billing Sheet Testing DOT Drug Screen: Yes Clinical Quality Measures Falls Risk Screening/Assistive Devices Have you fallen in the past year?: No 05/08/24618 Date Ciro DENNIS [facility] Signature: Date (if applicable) CC: Normal [facility] Post Void Residual Bladderon 04-15-2024 Post Void Residual Bladder [facility] Services [address] [address] Post Void Residual Bladder MR#: [id number] Acct: [id number] Name: LIA BUSTAMANTE Rep #: [id number] : 1960 M 64 From: Bubba Marrero MD PCP: Dr. Spencer Rahman MD Status: REG CLI Study: Post Void Residual Bladder Date of Exam: 04/15 Exam# [id number] Ordering Dr: Spencer Rahman MD PROCEDURE: ULTRASOUND POST VOID RESIDUAL BLADDER REASON FOR EXAM: Incomplete bladder emptying PROCEDURE: Pre-voiding bladder volume: 112 mL. Postvoiding volume: 31 mL. Voided volume: 81 mL. Bladder wall: 0.2 cm in thickness. Masses: Unremarkable. Calculi: Unremarkable. Right ureteral jet: Visualized. Left ureteral jet: Visualized. US/Post Void Residual Bladder IMPRESSION: Unremarkable ultrasound of the urinary bladder. Reading Location: [facility] CC: Dr. Spencer Rahman MD [employer] Sticker: Signed Normal [facility] Colonoscopy Reporton 024 Colonoscopy Report [facility] Medical Records Department [address] [place] [address] Colonoscopy Report MR#: [id number] Acct: [id number] Name: LIA BUSTAMANTE Rep #: [id number] : 1960 63 From: Gabo Cortez DO PCP: Dr. Spencer Rahman MD Status:[facility] Patient Name: Lia Bustamante Procedure Date: 12/23/2023 8:44 AM Date of : 1960 Age: 63 Procedure: Colonoscopy Indications: Screening for colorectal malignant neoplasm Providers: Gabo Cortez DO Referring MD: Spencer Rahman Medicines: Monitored Anesthesia Care Patient Profile: This is a 63 year old male. Refer to note in patient chart for documentation of history and physical. Last Colonoscopy: 5 years ago. Complications: No immediate complications. Procedure: Pre-Anesthesia Assessment: - Prior to the procedure, a History and Physical was performed, and patient medications and allergies were reviewed. The patient is competent. The risks and benefits of the procedure and the sedation options and risks were discussed with the patient. All questions were answered and informed consent was obtained. Patient identification and proposed procedure were verified by the nurse in the pre-procedure area. Mental Status Examination: alert and oriented. Airway Examination: normal oropharyngeal airway and neck mobility. Respiratory Examination: clear to auscultation. CV Examination: normal. Prophylactic Antibiotics: The patient does not require prophylactic antibiotics. Prior Anticoagulants: The patient has taken no anticoagulant or antiplatelet agents. ASA Grade Assessment: II - A patient with mild systemic disease. After reviewing the risks and benefits, the patient was deemed in satisfactory condition to undergo the procedure. The anesthesia plan was to use monitored anesthesia care (MAC). Immediately prior to administration of medications, the patient was re-assessed for adequacy to receive sedatives. The heart rate, respiratory rate, oxygen saturations, blood pressure, adequacy of pulmonary ventilation, and response to care were monitored throughout the procedure. The physical status of the patient was re-assessed after the procedure. After I obtained informed consent, the scope was passed under direct vision. Throughout the procedure, the patient's blood pressure, pulse, and oxygen saturations were monitored continuously. The Colonoscope was introduced through the anus and advanced to the cecum, identified by appendiceal orifice and ileocecal valve. The colonoscopy was performed without difficulty. The patient tolerated the procedure well. The quality of the bowel preparation was adequate. The ileocecal valve, appendiceal orifice, and rectum were photographed. Scope In: 8:50:08 AM Scope Withdrawal Time 0 hours 9 minutes 5 seconds Scope Out: 9:06:10 AM Total Procedure Duration Time 0 hours 16 minutes 2 seconds Findings: The perianal and digital rectal examinations were normal. A few small-mouthed diverticula were found in the recto-sigmoid colon. The exam was otherwise without abnormality on direct and retroflexion views. Impression: - Diverticulosis in the recto-sigmoid colon. - The examination was otherwise normal on direct and retroflexion views. - No specimens collected. Recommendation: - Discharge patient to home. - Resume previous diet. - Continue present medications. - Repeat colonoscopy in 5 years for surveillance. Procedure Code(s): --- Professional --- 01506, Colonoscopy, flexible; diagnostic, including collection of specimen(s) by brushing or washing, when performed (separate procedure) CPT copyright 2021 [employer]. All rights reserved. The codes documented in this report are preliminary and upon private wealth advisor review may be revised to meet current compliance requirements. Gabo Cortez DO 12/23/2023 9:12:32 AM This report has been signed electronically. Number of Addenda: 0 Note Initiated On: 12/23/2023 8:44 AM 12/23/23911 Date Gabo Rogers Signature: Date (if indicated) CC: Dr. Spencer Rahman MD; Gabo Cortez DO Date Dictated: 12/23/23843 Date Transcribed: [employer] Sticker: DANIEL Cifuentes [facility] MR/POSTOP.[place] 12-23-2023 MR/POSTOP.[facility] Medical Records Department [address] [place] [address] Anesthesia Postop Eval I 12/23/23912 MR#: [id number] Acct: [id number] Name: LIA BUSTAMANTE Rep #: [id number] : 1960 63 From: Neil Woodruff PCP: Dr. Spencer Rahman MD Status:REG [facility] Y Race: C Location: [place] [address] Anesthesia: Postop Eval I Current Vital Signs Temperature: 97.1 F Pulse Rate: 71 Blood Pressure: 104/70 Respiratory Rate: 16 Pulse Ox: 96 Oxygen Delivery Method: Room Air Assessment Airway patent: Yes Spontaneous unlabored respirations: Yes Mental status: Asleep nausea: No Vomiting: No Anesthesia Complication: No Fluid Hydration Crystalloid volume administer (ml): 40 Total IV fluid infused: 40 Progress Note Anesthesia document: Postop Eval 1 completed: Yes 12/23/23913 Date Neil Acosta Signature: Date CC: Signed Normal [facility] MR/[id number] 12-23-2023 MR/POSTOPAN2 [facility] Medical Records Department [address] [place] [address] Anesthesia Postop Eval II 12/23/23933 MR#: [id number] Acct: [id number] Name: LIA BUSTAMANTE Rep #: [id number] : 1960 63 From: Avila Gray MD PCP: Dr. Spencer Rahman MD Status:REG SDC Y Race: C Location: [address] Anesthesia Postop Eval I Sum Postop Eval Completion status Anesthesia document: Postop Eval 1 completed: Yes Anesthesia Postop Eval I Summary Anesthesia Postop Eval I Summary: Anesthesia Postop Eval I: Assessment Summary Airway patent Yes 12/23/23 09:14 [email or web address] Spontaneous unlabored Yes 12/23/23 09:14 [email or web address] respirations Mental status Asleep 12/23/23 09:14 [email or web address] nausea No 12/23/23 09:14 [email or web address] Vomiting No 12/23/23 09:14 [email or web address] Anesthesia Postop Eval I: Fluid Summary Crystalloid volume administer 40 12/23/23 09:14 [email or web address] (ml) Colloids volume administered ( ml) Blood Product volume administered (ml) Total IV fluid infused 40 12/23/23 09:14 [email or web address] Anesthesia Postop Eval I: Summary Notes Anesthesia Complication No 12/23/23 09:14 [email or web address] Anesthesia Complication Comment: Post-operative progress note Anesthesia: Postop Eval II Evaluation Mental status: Awake Pain Level: 0 nausea: No Vomiting: No 12/23/23933 Date Avila Gray MD Cosigner Signature: Date CC: Signed Normal [facility] Urgent Care Visit Reporton 0 11-10-2023 Urgent Care Visit Report [facility] [address], [address] [place], [place] [address] OFFICE VISIT Date of Service: 11/10/23 MR#: [id number] Acct: [id number] Name: LIA BUSTAMANTE Rep #: [id number] : 1960 Provider: JEANNIE Sahu Age/Sex: 63/M Location[place] [facility] Status: Signed Intake Vital Signs 12/26/21 10:11 Height 5 ft 8 in 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 Chief Complaint: TURP Allergies Penicillins Allergy (Verified 12/24/21 07:43) Rash Have you fallen in the past year?: No PFSH Medical History 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) COPD (chronic obstructive pulmonary disease) Wears glasses Wears partial dentures Prostate disease High cholesterol History of hiatal hernia Gastric reflux Former smoker Surgical History History of esophagogastroduodenoscopy (EGD) Hx of colonoscopy Hx of inguinal hernia repair Hx of vasectomy Family History Father Cancer lung Social History Smoking Status: Former smoker HPI HPI Chief Complaint: TURP Details: LIA BUSTAMANTE, is a 63 M who presents to the office today for Office Procedures Physical Exam Coding PE Coding DOT PE: Yes Coding Level of Care Code No Charge Diagnoses 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) Z02.89 Assessment and Plan Assessment and Plan (1) 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 Chloride [Moles/Vol] 111 mmol/L 98-107 [facility] Cholesterol [Mass/Vol] 131 mg/dL <200 [facility] Comment on above: <200 mg/dL Desirable 200-240 mg/dL Borderline >240 mg/dL High Risk Glucose [Mass/Vol] 100 mg/dL 74-106 [facility] Comment on above: Fasting Glucose resu lt from 100 to 125 mg/dL suggests IMPAIRED HOMEOSTASIS per A.D.A. criteria. Hemoglobin (Bld) [Mass/Vol] 15.2 g/dL 13.0-16.5 [facility] Potassium [Moles/Vol] 4.2 mmol/L 3.5-5.1 [facility] Protein [Mass/Vol] 6.7 g/dL 6.4-8.2 [facility] Sodium [Moles/Vol] 141 mmol/L 136-145 [facility] Triglyceride [Mass/Vol] 118 mg/dL <199 [facility] Comment on above: The drugs N-Acetylcy steine and Metamizole may falsely depress this assay.Serum Triglycerides Reference Interval Normal <150 mg/dL Borderline high 150 - 199 mg/dL High 200 - 499 mg/dL Very High > or = 500 mg/dL WBC (Bld) [#/Vol] 6.0 10*3/uL 4.4-11.0 [facility] Determination of erythrocyte mean corpuscular volume (MCV)Ordered By: Spencer Rahman on 06-09-2023 MCV (RBC) [Entitic vol] 85.7 fL 80-94 [facility] Erythrocyte distribution wid th ratioOrdered By: Spencer Rahman on 06-09-2023 Erythrocyte distribution width (RBC) [Ratio] 13.5 % 11.6-14.6 [facility] Erythrocyte distribution wid th standard deviationOrdered By: Spencer Rahman on 06-09-2023 Erythrocyte distribution width (RBC) [Entitic vol] 41.8 fL 35.1-43.9 [facility] Hematocrit Auto (Bld) [Volum e fraction]Ordered By: Spencer Rahman on 06-09-2023 Hematocrit (Bld) [Volume fraction] 45.5 % 40-54 [facility] Laboratory - Chemistry and C hemistry - challengeOrdered By: Spencer Rahman on 06-09-2023 Albumin/Globulin [Mass ratio] 1.1 {ratio} 0.9-2.4 [facility] ALP [Catalytic activity/Vol] 66 U/L 45-117 [facility] ALT [Catalytic activity/Vol] 30 U/L 16-61 [facility] Cholesterol in HDL [Mass/Vol] 40 mg/dL >40 [facility] Comment on above: The drugs N-Acetylcy steine and Metamizole may falsely depress this assay. Reference Range HDL <40 mg/dL Low HDL Cholesterol HDL >or= 60 mg/dL High HDL Cholesterol Cholesterol in LDL [Mass/Vol] 67 mg/dL 0-130 [facility] CO2 [Moles/Vol] 26.0 mmol/L 21.0-32.0 [facility] Globulin (S) [Mass/Vol] 3.2 g/dL 2.2-4.2 [facility] Urea nitrogen/Creatinine [Mass ratio] 15.7 mg/mg 10-20 [facility] Laboratory - Hematology and Cell countsOrdered By: Spencer Rahman on 06-09-2023 MCH (RBC) [Entitic mass] 28.6 pg 27.0-32.0 [facility] MCHC (RBC) [Mass/Vol] 33.4 g/dL 32-36 [facility] Platelet mean volume (Bld) [Entitic vol] 10.2 fL 6.2-12.0 [facility] Platelets (Bld) [#/Vol] 190 10*3/uL 150-450 [facility] No Panel InformationOrdered By: Spencer Rahman on 06-09-2023 Estimated GFR (MDRD) Amer 101 mL/min >60 [facility] Comment on above: GFR Calc Estimated GFR (MDRD) Non-Af Amer 84 mL/min >60 [facility] Comment on above: Non- GFR Calc Prostate Specific Antigen Screen 0.61 ng/mL 0.00-4.00 [facility] Comment on above: This test was perfor med using the TPSA assay method for the[employer] chemistry system. Values obtained with differentassay methods cannot be used interchangably.When changing PSA assays in the course of monitoring apatient, additional sequential testing should be carriedout to confirm baseline values. VLDL Cholesterol 24 mg/dL 5-40 [facility] RBC Auto (Bld) [#/Vol]Ordere d By: Spencer Rahman on 06-09-2023 RBC (Bld) [#/Vol] 5.31 10*6/uL 4.6-6.2 [facility] Serum or plasma calcium bella urement (mass/volume)Ordered By: Spencer Rahman on 06-09-2023 Calcium [Mass/Vol] 9.0 mg/dL 8.5-10.1 [facility] Serum or plasma creatinine m easurement (mass/volume)Ordered By: Spencer Rahman on 06-09-2023 Creatinine [Mass/Vol] 0.96 mg/dL 0.70-1.30 [facility] Comment on above: The validity of the calculated GFR & GFRAA in patients over 70 years has not been determined. Clinical correlation is essential. Serum or plasma urea nitroge n measurement (mass/volume)Ordered By: Spencer Rahman on 06-09-2023 Urea nitrogen [Mass/Vol] 15 mg/dL 7-18 [facility] Thin prep Papanicolaou smear with manual screeningOrdered By: Spencer Rahman on 06-09-2023 Thin prep Papanicolaou smear with manual screening 3.5 g/dL 3.2-5.0 [facility] Thin prep Papanicolaou smear with manual screening 20 U/L 15-37 [facility] Thin prep Papanicolaou smear with manual screening 4 5-15 [facility] Whole blood hemoglobin A1c/t otal hemoglobin ratio (mass fraction)Ordered By: Spencer Rahman on 06-09-2023 HbA1c (Bld) [Mass fraction] 5.6 % 3.8-5.6 [facility] Comment on above: Normal < 5.7 % Predi abetic 5.7 - 6.4 % Diabetic >or= 6.5 % Please note range changes. Absolute lymphocyte countOrd ered By: Dr. Rahman on 04-22-2022 Lymphocytes Auto (Unsp spec) [#/Vol] 2.27 10*3/uL 0.83-4.51 [facility] Basophil percentageOrdered B y: Dr. Rahman on 04-22-2022 Basophils/100 WBC (Bld) 0.7 % 0-1 [facility] Bilirubin [Mass/Vol] 0.90 mg/dL 0.20-1.00 [facility] Comment on above: For patients on eltr ombopag therapy, use of Dimension [place] TBIL is not recommended. Chloride [Moles/Vol] 107 mmol/L 98-107 [facility] Cholesterol [Mass/Vol] 161 mg/dL <200 [facility] Comment on above: <200 mg/dL Desirable 200-240 mg/dL Borderline >240 mg/dL High Risk Eosinophils/100 WBC (Bld) 2.7 % 0-5 [facility] Glucose [Mass/Vol] 95 mg/dL 74-106 [facility] Neutrophils (Bld) [#/Vol] 2.9 10*3/uL 2.0-7.7 [facility] Neutrophils/100 WBC (Bld) 48.7 % 47-70 [facility] Potassium [Moles/Vol] 3.8 mmol/L 3.5-5.1 [facility] Protein [Mass/Vol] 6.9 g/dL 6.4-8.2 [facility] Sodium [Moles/Vol] 140 mmol/L 136-145 [facility] Triglyceride [Mass/Vol] 138 mg/dL <199 [facility] Comment on above: The drugs N-Acetylcy steine and Metamizole may falsely depress this assay.Serum Triglycerides Reference Interval Normal <150 mg/dL Borderline high 150 - 199 mg/dL High 200 - 499 mg/dL Very High > or = 500 mg/dL WBC (Bld) [#/Vol] 6.0 10*3/uL 4.4-11.0 [facility] Blood erythrocytes count (nu mber/volume)Ordered By: Dr. Rahman on 04-22-2022 RBC (Bld) [#/Vol] 5.39 10*6/uL 4.6-6.2 [facility] Blood hemoglobin measurement (mass/volume)Ordered By: Dr. Rahman on 04-22-2022 Hemoglobin (Bld) [Mass/Vol] 15.4 g/dL 13.0-16.5 [facility] Blood lymphocytes/100 leukoc ytesOrdered By: Dr. Rahman on 04-22-2022 Lymphocytes/100 WBC (Bld) 37.8 % 19-41 [facility] Blood monocytes/100 leukocyt esOrdered By: Dr. Rahman on 04-22-2022 Monocytes/100 WBC (Bld) 9.8 % 0-10 [facility] Blood platelet mean volumeOr dered By: Dr. Rahman on 04-22-2022 Platelet mean volume (Bld) [Entitic vol] 9.8 fL 6.2-12.0 [facility] Determination of erythrocyte mean corpuscular volume (MCV)Ordered By: Dr. Rahman on 04-22-2022 MCV (RBC) [Entitic vol] 85.3 fL 80-94 [facility] Hematocrit Auto (Bld) [Volum e fraction]Ordered By: Dr. Rahman on 04-22-2022 Hematocrit (Bld) [Volume fraction] 46.0 % 40-54 [facility] Laboratory - Chemistry and C hemistry - challengeOrdered By: Dr. Rahman on 04-22-2022 ALP [Catalytic activity/Vol] 63 U/L 45-117 [facility] ALT [Catalytic activity/Vol] 25 U/L 16-61 [facility] CO2 [Moles/Vol] 26.0 mmol/L 21.0-32.0 [facility] Globulin (S) [Mass/Vol] 3.3 g/dL 2.2-4.2 [facility] Urea nitrogen/Creatinine [Mass ratio] 18.5 mg/mg 10-20 [facility] Laboratory - Hematology and Cell countsOrdered By: Dr. Rahman on 04-22-2022 Erythrocyte distribution width (RBC) [Entitic vol] 41.1 fL 35.1-43.9 [facility] Erythrocyte distribution width (RBC) [Ratio] 13.3 % 11.6-14.6 [facility] Immature granulocytes/100 WBC (Bld) 0.300 % 0.0-0.9 [facility] Comment on above: IG% - Immature Granu locytes (promyelocytes, myelocytes and metamyelocytes) > 1% indicates that a LEFT SHIFT is Present. MCH (RBC) [Entitic mass] 28.6 pg 27.0-32.0 [facility] Nucleated RBC/100 WBC (Bld) [Ratio] 0 % 0-5 [facility] MCHC Auto (RBC) [Mass/Vol]Or dered By: Dr. Rahman on 04-22-2022 MCHC (RBC) [Mass/Vol] 33.5 g/dL 32-36 [facility] No Panel InformationOrdered By: Dr. Rahman on 04-22-2022 Estimated GFR (MDRD) Amer 115 mL/min >60 [facility] Comment on above: GFR Calc Estimated GFR (MDRD) Non-Af Amer 95 mL/min >60 [facility] Comment on above: Non- GFR Calc Vitamin D 25-Hydroxy 38.0 ng/mL [facility] Comment on above: Vitamin D 25(OH) Sta tus Range Deficiency <20 ng/mL (50nmol/L) Insufficiency 20 - 30 ng/mL (50 - 75 nmol/L) Sufficiency 30 - 100 ng/mL (75 - 250 nmol/L) Toxicity >100 ng/mL (>250 nmol/L) Platelets bldOrdered By: Dr. Rahman on 04-22-2022 Platelets (Bld) [#/Vol] 185 10*3/uL 150-450 [facility] Serum or plasma albumin bella urement (mass/volume)Ordered By: Dr. Rahman on 04-22-2022 Albumin [Mass/Vol] 3.6 g/dL 3.2-5.0 [facility] Serum or plasma albumin/glob ulin mass ratioOrdered By: Dr. Rahman on 04-22-2022 Albumin/Globulin [Mass ratio] 1.1 {ratio} 0.9-2.4 [facility] Serum or plasma calcium bella urement (mass/volume)Ordered By: Dr. Rahman on 04-22-2022 Calcium [Mass/Vol] 9.1 mg/dL 8.5-10.1 [facility] Serum or plasma cholesterol in HDL measurement (mass/volume)Ordered By: Dr. Rahman on 04-22-2022 Cholesterol in HDL [Mass/Vol] 43 mg/dL >40 [facility] Comment on above: The drugs N-Acetylcy steine and Metamizole may falsely depress this assay. Reference Range HDL <40 mg/dL Low HDL Cholesterol HDL >or= 60 mg/dL High HDL Cholesterol Serum or plasma cholesterol in VLDL measurement (mass/volume)Ordered By: Dr. Rahman on 04-22-2022 Cholesterol in VLDL [Mass/Vol] 28 mg/dL 5-40 [facility] Serum or plasma creatinine m easurement (mass/volume)Ordered By: Dr. Rahman on 04-22-2022 Creatinine [Mass/Vol] 0.86 mg/dL 0.70-1.30 [facility] Comment on above: The validity of the calculated GFR & GFRAA in patients over 70 years has not been determined. Clinical correlation is essential. Serum or plasma low density lipoprotein (LDL) cholesterol measurement (mass/volume)Ordered By: Dr. Rahman on 04-22-2022 Cholesterol in LDL [Mass/Vol] 90 mg/dL 0-130 [facility] Serum or plasma urea nitroge n measurement (mass/volume)Ordered By: Dr. Rahman on 04-22-2022 Urea nitrogen [Mass/Vol] 16 mg/dL 7-18 [facility] Thin prep Papanicolaou smear with manual screeningOrdered By: Dr. Rahman on 04-22-2022 Thin prep Papanicolaou smear with manual screening 19 U/L 15-37 [facility] Thin prep Papanicolaou smear with manual screening 7 5-15 [facility] Whole blood hemoglobin A1c/t otal hemoglobin ratio (mass fraction)Ordered By: Dr. Rahman on 04-22-2022 HbA1c (Bld) [Mass fraction] 5.7 % 3.8-5.6 [facility] Comment on above: Normal < 5.7 % Predi abetic 5.7 - 6.4 % Diabetic >or= 6.5 % Please note range changes. Absolute lymphocyte counton 12-26-2021 Lymphocytes Auto (Unsp spec) [#/Vol] 1.82 10*3/uL 0.83-4.51 [facility] Work Phone: [phone] Basophil percentageon 2021 Basophils/100 WBC (Bld) 0.6 % 0-1 [facility] Work Phone: [phone] Bilirubin [Mass/Vol] 0.50 mg/dL 0.20-1.00 [facility] Work Phone: [phone] Comment on above: For patients on eltr ombopag therapy, use of Dimension [place] TBIL is not recommended. Chloride [Moles/Vol] 108 mmol/L 98-107 [facility] Work Phone: Eosinophils/100 WBC (Bld) 2.3 % 0-5 [facility] Work Phone: [phone] Glucose [Mass/Vol] 103 mg/dL 74-106 [facility] Work Phone: [phone] Comment on above: Fasting Glucose resu lt from 100 to 125 mg/dL suggests IMPAIRED HOMEOSTASIS per A.D.A. criteria. Neutrophils (Bld) [#/Vol] 4.0 10*3/uL 2.0-7.7 [facility] Work Phone: [phone] Neutrophils/100 WBC (Bld) 60.1 % 47-70 [facility] Work Phone: [phone] Potassium [Moles/Vol] 4.1 mmol/L 3.5-5.1 [facility] Work Phone: Protein [Mass/Vol] 7.3 g/dL 6.4-8.2 [facility] Work Phone: Sodium [Moles/Vol] 143 mmol/L 136-145 [facility] Work Phone: WBC (Bld) [#/Vol] 6.6 10*3/uL 4.4-11.0 [facility] Work Phone: [phone] Blood erythrocytes count (nu mber/volume)on 12-26-2021 RBC (Bld) [#/Vol] 5.37 10*6/uL 4.6-6.2 [facility] Work Phone: Blood hemoglobin measurement (mass/volume)on 12-26-2021 Hemoglobin (Bld) [Mass/Vol] 15.8 g/dL 13.0-16.5 [facility] Work Phone: [phone] Blood lymphocytes/100 leukoc yteson 12-26-2021 Lymphocytes/100 WBC (Bld) 27.5 % 19-41 [facility] Work Phone: Blood monocytes/100 leukocyt eson 12-26-2021 Monocytes/100 WBC (Bld) 9.2 % 0-10 [facility] Work Phone: Blood platelet mean volumeon 12-26-2021 Platelet mean volume (Bld) [Entitic vol] 9.6 fL 6.2-12.0 [facility] Work Phone: Determination of erythrocyte mean corpuscular volume (MCV)on 12-26-2021 MCV (RBC) [Entitic vol] 85.7 fL 80-94 [facility] Work Phone: Glucose Glucometer (BldC) [M ass/Vol]on 12-26-2021 Glucose [Mass/Vol] 110 mg/dL 74-106 [facility] Work Phone: Comment on above: MANAGEMENT OF PATIEN T CARE PER NURSING PROTOCOL Hematocrit Auto (Bld) [Volum e fraction]on 12-26-2021 Hematocrit (Bld) [Volume fraction] 46.0 % 40-54 [facility] Work Phone: Laboratory - Chemistry and C hemistry - challengeon 12-26-2021 ALP [Catalytic activity/Vol] 70 U/L 45-117 [facility] Work Phone: ALT [Catalytic activity/Vol] 22 U/L 16-61 [facility] Work Phone: CO2 [Moles/Vol] 29.0 mmol/L 21.0-32.0 [facility] Work Phone: Globulin (S) [Mass/Vol] 3.8 g/dL 2.2-4.2 [facility] Work Phone: Urea nitrogen/Creatinine [Mass ratio] 11.3 mg/mg 10-20 [facility] Work Phone: Laboratory - Hematology and Cell countson 12-26-2021 Erythrocyte distribution width (RBC) [Entitic vol] 43.3 fL 35.1-43.9 [facility] Work Phone: Erythrocyte distribution width (RBC) [Ratio] 13.9 % 11.6-14.6 [facility] Work Phone: Immature granulocytes/100 WBC (Bld) 0.300 % 0.0-0.9 [facility] Work Phone: Comment on above: IG% - Immature Granu locytes (promyelocytes, myelocytes and metamyelocytes) > 1% indicates that a LEFT SHIFT is Present. MCH (RBC) [Entitic mass] 29.4 pg 27.0-32.0 [facility] Work Phone: Nucleated RBC/100 WBC (Bld) [Ratio] 0 % 0-5 [facility] Work Phone: MCHC Auto (RBC) [Mass/Vol]on 12-26-2021 MCHC (RBC) [Mass/Vol] 34.3 g/dL 32-36 [facility] Work [facility]: No Panel Informationon 12-26 Estimated Creatinine Clearance Calc 83.13 ml/min [facility] Work Phone: Estimated GFR (MDRD) Amer 112 mL/min >60 [facility] Work Phone: Comment on above: GFR Calc Estimated GFR (MDRD) Non-Af Amer 92 mL/min >60 [facility] Work Phone: Comment on above: Non- GFR Calc Platelets bldon 12-26-2021 Platelets (Bld) [#/Vol] 196 10*3/uL 150-450 [facility] Work Phone: [phone] Serum or plasma albumin bella urement (mass/volume)on 12-26-2021 Albumin [Mass/Vol] 3.5 g/dL 3.2-5.0 [facility] Work Phone: [phone] Serum or plasma albumin/glob ulin mass ratioon 12-26-2021 Albumin/Globulin [Mass ratio] 0.9 {ratio} 0.9-2.4 [facility] Work Phone: [phone] Serum or plasma calcium bella urement (mass/volume)on 12-26-2021 Calcium [Mass/Vol] 9.5 mg/dL 8.5-10.1 [facility] Work Phone: [phone] Serum or plasma creatinine m easurement (mass/volume)on 12-26-2021 Creatinine [Mass/Vol] 0.88 mg/dL 0.70-1.30 [facility] Work Phone: Comment on above: The validity of the calculated GFR & GFRAA in patients over 70 years has not been determined. Clinical correlation is essential. Serum or plasma urea nitroge n measurement (mass/volume)on 12-26-2021 Urea nitrogen [Mass/Vol] 10 mg/dL 7-18 [facility] Work Phone: Thin prep Papanicolaou smear with manual screeningon 12-26-2021 Thin prep Papanicolaou smear with manual screening 14 U/L 15-37 [facility] Work Phone: [phone] Thin prep Papanicolaou smear with manual screening 6 5-15 [facility] Work Phone: Absolute lymphocyte counton 10-15-2021 Lymphocytes Auto (Unsp spec) [#/Vol] 2.24 10*3/uL 0.83-4.51 [facility] Work Phone: [phone] Basophil percentageon 2021 Basophils/100 WBC (Bld) 0.9 % 0-1 [facility] Work Phone: [phone] Bilirubin [Mass/Vol] 0.60 mg/dL 0.20-1.00 [facility] Work Phone: Comment on above: For patients on eltr ombopag therapy, use of Dimension [place] TBIL is not recommended. Chloride [Moles/Vol] 110 mmol/L 98-107 [facility] Work Phone: [phone] Cholesterol [Mass/Vol] 136 mg/dL <200 [facility] Work Phone: [phone] Comment on above: <200 mg/dL Desirable 200-240 mg/dL Borderline >240 mg/dL High Risk Eosinophils/100 WBC (Bld) 2.6 % 0-5 [facility] Work Phone: [phone] Glucose [Mass/Vol] 93 mg/dL 74-106 [facility] Work Phone: [phone] Neutrophils (Bld) [#/Vol] 2.4 10*3/uL 2.0-7.7 [facility] Work Phone: [phone] Neutrophils/100 WBC (Bld) 44.7 % 47-70 [facility] Work Phone: [phone] Potassium [Moles/Vol] 4.1 mmol/L 3.5-5.1 [facility] Work Phone: [phone] Protein [Mass/Vol] 7.0 g/dL 6.4-8.2 [facility] Work Phone: [phone] Sodium [Moles/Vol] 140 mmol/L 136-145 [facility] Work Phone: [phone] Triglyceride [Mass/Vol] 113 mg/dL <199 [facility] Work Phone: [phone] Comment on above: The drugs N-Acetylcy steine and Metamizole may falsely depress this assay.Serum Triglycerides Reference Interval Normal <150 mg/dL Borderline high 150 - 199 mg/dL High 200 - 499 mg/dL Very High > or = 500 mg/dL WBC (Bld) [#/Vol] 5.5 10*3/uL 4.4-11.0 [facility] Work Phone: [phone] Blood erythrocytes count (nu mber/volume)on 10-15-2021 RBC (Bld) [#/Vol] 5.15 10*6/uL 4.6-6.2 [facility] Work Phone: [phone] Blood hemoglobin measurement (mass/volume)on 10-15-2021 Hemoglobin (Bld) [Mass/Vol] 14.9 g/dL 13.0-16.5 [facility] Work Phone: Blood lymphocytes/100 leukoc yteson 10-15-2021 Lymphocytes/100 WBC (Bld) 41.1 % 19-41 [facility] Work Phone: Blood monocytes/100 leukocyt eson 10-15-2021 Monocytes/100 WBC (Bld) 10.3 % 0-10 [facility] Work Phone: Blood platelet mean volumeon 10-15-2021 Platelet mean volume (Bld) [Entitic vol] 10.1 fL 6.2-12.0 [facility] Work Phone: [phone] Determination of erythrocyte mean corpuscular volume (MCV)on 10-15-2021 MCV (RBC) [Entitic vol] 86.4 fL 80-94 [facility] Work Phone: Hematocrit Auto (Bld) [Volum e fraction]on 10-15-2021 Hematocrit (Bld) [Volume fraction] 44.5 % 40-54 [facility] Work Phone: [phone] Laboratory - Chemistry and C hemistry - challengeon 10-15-2021 ALP [Catalytic activity/Vol] 70 U/L 45-117 [facility] Work Phone: ALT [Catalytic activity/Vol] 29 U/L 16-61 [facility] Work Phone: CO2 [Moles/Vol] 26.0 mmol/L 21.0-32.0 [facility] Work Phone: [phone] Globulin (S) [Mass/Vol] 3.5 g/dL 2.2-4.2 [facility] Work Phone: [phone] Urea nitrogen/Creatinine [Mass ratio] 11.9 mg/mg 10-20 [facility] Work Phone: Laboratory - Hematology and Cell countson 10-15-2021 Erythrocyte distribution width (RBC) [Entitic vol] 43.5 fL 35.1-43.9 [facility] Work Phone: Erythrocyte distribution width (RBC) [Ratio] 13.7 % 11.6-14.6 [facility] Work Phone: Immature granulocytes/100 WBC (Bld) 0.400 % 0.0-0.9 [facility] Work Phone: Comment on above: IG% - Immature Granu locytes (promyelocytes, myelocytes and metamyelocytes) > 1% indicates that a LEFT SHIFT is Present. MCH (RBC) [Entitic mass] 28.9 pg 27.0-32.0 [facility] Work Phone: Nucleated RBC/100 WBC (Bld) [Ratio] 0 % 0-5 [facility] Work Phone: MCHC Auto (RBC) [Mass/Vol]on 10-15-2021 MCHC (RBC) [Mass/Vol] 33.5 g/dL 32-36 [facility] Work Phone: No Panel Informationon 10-15 Estimated GFR (MDRD) Amer 106 mL/min >60 [facility] Work Phone: Comment on above: GFR Calc Estimated GFR (MDRD) Non-Af Amer 87 mL/min >60 [facility] Work Phone: Comment on above: Non- GFR Calc Vitamin D 25-Hydroxy 44.9 ng/mL [facility] Work Phone: Comment on above: Vitamin D 25(OH) Sta tus Range Deficiency <20 ng/mL (50nmol/L) Insufficiency 20 - 30 ng/mL (50 - 75 nmol/L) Sufficiency 30 - 100 ng/mL (75 - 250 nmol/L) Toxicity >100 ng/mL (>250 nmol/L) Platelets bldon 10-15-2021 Platelets (Bld) [#/Vol] 195 10*3/uL 150-450 [facility] Work Phone: Serum or plasma albumin bella urement (mass/volume)on 10-15-2021 Albumin [Mass/Vol] 3.5 g/dL 3.2-5.0 [facility] Work Phone: Serum or plasma albumin/glob ulin mass ratioon 10-15-2021 Albumin/Globulin [Mass ratio] 1.0 {ratio} 0.9-2.4 [facility] Work Phone: Serum or plasma calcium bella urement (mass/volume)on 10-15-2021 Calcium [Mass/Vol] 8.7 mg/dL 8.5-10.1 [facility] Work Phone: Serum or plasma cholesterol in HDL measurement (mass/volume)on 10-15-2021 Cholesterol in HDL [Mass/Vol] 42 mg/dL >40 [facility] Work Phone: Comment on above: The drugs N-Acetylcy steine and Metamizole may falsely depress this assay. Reference Range HDL <40 mg/dL Low HDL Cholesterol HDL >or= 60 mg/dL High HDL Cholesterol Serum or plasma cholesterol in VLDL measurement (mass/volume)on 10-15-2021 Cholesterol in VLDL [Mass/Vol] 23 mg/dL 5-40 [facility] Work Phone: Serum or plasma creatinine m easurement (mass/volume)on 10-15-2021 Creatinine [Mass/Vol] 0.93 mg/dL 0.70-1.30 [facility] Work Phone: Comment on above: The validity of the calculated GFR & GFRAA in patients over 70 years has not been determined. Clinical correlation is essential. Serum or plasma low density lipoprotein (LDL) cholesterol measurement (mass/volume)on 10-15-2021 Cholesterol in LDL [Mass/Vol] 71 mg/dL 0-130 [facility] Work Phone: Serum or plasma urea nitroge n measurement (mass/volume)on 10-15-2021 Urea nitrogen [Mass/Vol] 11 mg/dL 7-18 [facility] Work Phone: Thin prep Papanicolaou smear with manual screeningon 10-15-2021 Thin prep Papanicolaou smear with manual screening 18 U/L 15-37 [facility] Work Phone: Thin prep Papanicolaou smear with manual screening 4 5-15 [facility] Work Phone: Whole blood hemoglobin A1c/t otal hemoglobin ratio (mass fraction)on 10-15-2021 HbA1c (Bld) [Mass fraction] 5.7 % 3.8-5.6 [facility] Work Phone: Comment on above: Normal < 5.7 % Predi abetic 5.7 - 6.4 % Diabetic >or= 6.5 % Please note range changes. Laboratory - Microbiology an d Antimicrobial susceptibilityon 07-15-2021 SARS-CoV-2 (COVID-19) RNA BYRON+probe Ql (Unsp spec) Detected Not Detect [facility] Work Phone: Comment on above: Normal Reference Ran ge: Not DetectedMethod:(RT-PCR) real-time reverse transcriptase PCRLuminex [employer] Instrument*The Food and Drug Administration (FDA) has issued an Emergency Use Authorization (EAU) for the [employer] SARS-CoV-2 Assay for the rapid detection of the virus that causes COVID-19. This test has been validated, but the FDAs independent review of this validation is pending.*Negative results do not preclude infection and should not be used as the sole basis for treatment or patient management. Optimum specimen types and timing for peak viral levels during infections caused by SARS-CoV-2 have not been determined. Collection of multiple specimens from the same patient may be necessary to detect the virus. The possibility of a false negative result should be considered if the patient has clinical presentation or has had recent exposure. No Panel Informationon 07-15 Prostate Specific Antigen Screen 1.37 ng/mL 0.00-4.00 [facility] Work Phone: Comment on above: This test was perfor med using the TPSA assay method for the[employer] chemistry system. Values obtained with differentassay methods cannot be used interchangably.When changing PSA assays in the course of monitoring apatient, additional sequential testing should be carriedout to confirm baseline values. Basophil percentageon 2021 Cholesterol [Mass/Vol] 149 mg/dL <200 [facility] Work Phone: Comment on above: <200 mg/dL Desirable 200-240 mg/dL Borderline >240 mg/dL High Risk Triglyceride [Mass/Vol] 98 mg/dL [facility] Work Phone: Comment on above: The drugs N-Acetylcy steine and Metamizole may falsely depress this assay.Serum Triglycerides Reference Interval Normal <150 mg/dL Borderline high 150 - 199 mg/dL High 200 - 499 mg/dL Very High > or = 500 mg/dL Serum or plasma cholesterol in HDL measurement (mass/volume)on 06-12-2021 Cholesterol in HDL [Mass/Vol] 45 mg/dL [facility] Work Phone: Comment on above: The drugs N-Acetylcy steine and Metamizole may falsely depress this assay. Reference Range HDL <40 mg/dL Low HDL Cholesterol HDL >or= 60 mg/dL High HDL Cholesterol Serum or plasma cholesterol in VLDL measurement (mass/volume)on 06-12-2021 Cholesterol in VLDL [Mass/Vol] 20 mg/dL 5-40 [facility] Work Phone: Serum or plasma low density lipoprotein (LDL) cholesterol measurement (mass/volume)on 06-12-2021 Cholesterol in LDL [Mass/Vol] 84 mg/dL 0-130 [facility] Work Phone: Absolute lymphocyte counton 05-19-2021 Lymphocytes Auto (Unsp spec) [#/Vol] 3.25 10*3/uL 0.83-4.51 [facility] Work Phone: Basophil percentageon 2021 Basophil percentage 0 SEEN /hpf [facility] Work Phone: Basophils/100 WBC (Bld) 0.8 % 0-1 [facility] Work Phone: Bilirubin [Mass/Vol] 0.40 mg/dL 0.20-1.00 [facility] Work Phone: Comment on above: For patients on eltr ombopag therapy, use of Dimension [place] TBIL is not recommended. Chloride [Moles/Vol] 106 mmol/L 98-107 [place] [facility] Work Phone: [phone] Cholesterol [Mass/Vol] 165 mg/dL <200 [facility] Work Phone: Comment on above: <200 mg/dL Desirable 200-240 mg/dL Borderline >240 mg/dL High Risk Eosinophils/100 WBC (Bld) 2.7 % 0-5 [facility] Work Phone: [phone] Glucose [Mass/Vol] 103 mg/dL 74-106 [facility] Work Phone: [phone] Comment on above: Fasting Glucose resu lt from 100 to 125 mg/dL suggests IMPAIRED HOMEOSTASIS per A.D.A. criteria. Neutrophils (Bld) [#/Vol] 3.1 10*3/uL 2.0-7.7 [facility] Work Phone: [phone] Neutrophils/100 WBC (Bld) 41.3 % 47-70 [facility] Work Phone: [phone] Potassium [Moles/Vol] 4.1 mmol/L 3.5-5.1 [facility] Work Phone: Comment on above: Slight Hemolysis, Re sult may be falsely increased. Protein [Mass/Vol] 7.7 g/dL 6.4-8.2 [facility] Work Phone: [phone] Sodium [Moles/Vol] 139 mmol/L 136-145 [facility] Work Phone: Triglyceride [Mass/Vol] 510 mg/dL [facility] Work Phone: [phone] Comment on above: The drugs N-Acetylcy steine and Metamizole may falsely depress this assay. TRIGLYCERIDE IS GREATER THAN 400 mg/dL. LDL RESULT IS INVALID AND WILL NOT BE REPORTED.Serum Triglycerides Reference Interval Normal <150 mg/dL Borderline high 150 - 199 mg/dL High 200 - 499 mg/dL Very High > or = 500 mg/dL WBC (Bld) [#/Vol] 7.5 10*3/uL 4.4-11.0 [facility] Work Phone: Bilirubin Test strip Ql (U)o n 05-19-2021 Bilirubin Ql (U) Negative Negative [facility] Work Phone: Blood erythrocytes count (nu mber/volume)on 05-19-2021 RBC (Bld) [#/Vol] 5.41 10*6/uL 4.6-6.2 [facility] Work Phone: Blood hemoglobin measurement (mass/volume)on 05-19-2021 Hemoglobin (Bld) [Mass/Vol] 15.7 g/dL 13.0-16.5 [facility] Work Phone: Blood lymphocytes/100 leukoc yteson 05-19-2021 Lymphocytes/100 WBC (Bld) 43.4 % 19-41 [facility] Work Phone: Blood monocytes/100 leukocyt eson 05-19-2021 Monocytes/100 WBC (Bld) 11.3 % 0-10 [facility] Work Phone: [phone] Blood platelet mean volumeon 05-19-2021 Platelet mean volume (Bld) [Entitic vol] 10.2 fL 6.2-12.0 [facility] Work Phone: Determination of erythrocyte mean corpuscular volume (MCV)on 05-19-2021 MCV (RBC) [Entitic vol] 85.2 fL 80-94 [facility] Work Phone: Hematocrit Auto (Bld) [Volum e fraction]on 05-19-2021 Hematocrit (Bld) [Volume fraction] 46.1 % 40-54 [facility] Work Phone: Ketones Test strip Ql (U)on 05-19-2021 Ketones Ql (U) Negative Negative [facility] Work Phone: Laboratory - Chemistry and C hemistry - challengeon 05-19-2021 ALP [Catalytic activity/Vol] 74 U/L 45-117 [facility] Work Phone: ALT [Catalytic activity/Vol] 37 U/L 16-61 [facility] Work Phone: CO2 [Moles/Vol] 28.0 mmol/L 21.0-32.0 [facility] Work Phone: Globulin (S) [Mass/Vol] 4.0 g/dL 2.2-4.2 [facility] Work Phone: Urea nitrogen/Creatinine [Mass ratio] 16.0 mg/mg 10-20 [facility] Work Phone: Laboratory - Hematology and Cell countson 05-19-2021 Erythrocyte distribution width (RBC) [Entitic vol] 43.1 fL 35.1-43.9 [facility] Work Phone: Erythrocyte distribution width (RBC) [Ratio] 14.0 % 11.6-14.6 [facility] Work Phone: Immature granulocytes/100 WBC (Bld) 0.500 % 0.0-0.9 [facility] Work Phone: Comment on above: IG% - Immature Granu locytes (promyelocytes, myelocytes and metamyelocytes) > 1% indicates that a LEFT SHIFT is Present. MCH (RBC) [Entitic mass] 29.0 pg 27.0-32.0 [facility] Work Phone: Nucleated RBC/100 WBC (Bld) [Ratio] 0 % 0-5 [facility] Work Phone: MCHC Auto (RBC) [Mass/Vol]on 05-19-2021 MCHC (RBC) [Mass/Vol] 34.1 g/dL 32-36 [facility] Work Phone: Mucus LM Ql (Urine sed)on Mucus Ql (Urine sed) 0 SEEN /hpf [facility] Work Phone: Nitrite Test strip Ql (U)on 05-19-2021 Nitrite Ql (U) Negative Negative [facility] Work Phone: No Panel Informationon 05-19 Estimated GFR (MDRD) Amer 113 mL/min >60 [facility] Work Phone: Comment on above: GFR Calc Estimated GFR (MDRD) Non-Af Amer 94 mL/min >60 [facility] Work Phone: Comment on above: Non- GFR Calc Thyroid Stimulating Hormone (TSH) 1.50 uIU/mL 0.358-3.74 [facility] Work Phone: Vitamin D 25-Hydroxy 28.0 ng/mL [facility] Work Phone: Comment on above: Vitamin D 25(OH) Sta tus Range Deficiency <20 ng/mL (50nmol/L) Insufficiency 20 - 30 ng/mL (50 - 75 nmol/L) Sufficiency 30 - 100 ng/mL (75 - 250 nmol/L) Toxicity >100 ng/mL (>250 nmol/L) Platelets bldon 05-19-2021 Platelets (Bld) [#/Vol] 265 10*3/uL 150-450 [facility] Work Phone: Protein Test strip Ql (U)on 05-19-2021 Protein Ql (U) Negative Negative [facility] Work Phone: Serum or plasma albumin bella urement (mass/volume)on 05-19-2021 Albumin [Mass/Vol] 3.7 g/dL 3.2-5.0 [facility] Work Phone: Serum or plasma albumin/glob ulin mass ratioon 05-19-2021 Albumin/Globulin [Mass ratio] 0.9 {ratio} 0.9-2.4 [facility] Work Phone: Serum or plasma calcium bella urement (mass/volume)on 05-19-2021 Calcium [Mass/Vol] 8.8 mg/dL 8.5-10.1 [facility] Work Phone: Serum or plasma cholesterol in HDL measurement (mass/volume)on 05-19-2021 Cholesterol in HDL [Mass/Vol] 38 mg/dL [facility] Work Phone: Comment on above: The drugs N-Acetylcy steine and Metamizole may falsely depress this assay. Reference Range HDL <40 mg/dL Low HDL Cholesterol HDL >or= 60 mg/dL High HDL Cholesterol Serum or plasma cholesterol in VLDL measurement (mass/volume)on 05-19-2021 Cholesterol in VLDL [Mass/Vol] [facility] Work Phone: Comment on above: Test not performed Serum or plasma creatinine m easurement (mass/volume)on 05-19-2021 Creatinine [Mass/Vol] 0.88 mg/dL 0.70-1.30 [facility] Work Phone: Comment on above: The validity of the calculated GFR & GFRAA in patients over 70 years has not been determined. Clinical correlation is essential. Serum or plasma low density lipoprotein (LDL) cholesterol measurement (mass/volume)on 05-19-2021 Cholesterol in LDL [Mass/Vol] [facility] Work Phone: Comment on above: Test not performed Serum or plasma urea nitroge n measurement (mass/volume)on 05-19-2021 Urea nitrogen [Mass/Vol] 14 mg/dL 7-18 [facility] Work Phone: Squamous epithelial cells de tection in urine sediment by light microscopyon 05-19-2021 Epithelial cells.squamous LM Ql (Urine sed) 0 SEEN /hpf [facility] Work Phone: Thin prep Papanicolaou smear with manual screeningon 05-19-2021 Thin prep Papanicolaou smear with manual screening 21 U/L 15-37 [facility] Work Phone: Comment on above: Slight Hemolysis, Re sult may be falsely increased. Thin prep Papanicolaou smear with manual screening 5 5-15 [facility] Work Phone: Urine blood detectionon 04-23 RBC Ql (U) Negative Negative [facility] Work Phone: RBC Ql (U) 0 SEEN /hpf [facility] Work Phone: Urine clarityon 05-19-2021 Clarity (U) Clear Clear [facility] Work Phone: Urine color determinationon 05-19-2021 Color (U) Yellow Yellow [facility] Work Phone: Urine glucose detectionon Glucose Ql (U) Normal mg/dl Normal [facility] Work Phone: Urine leukocyte esterase det ection by dipstickon 05-19-2021 Leukocyte esterase Test strip Ql (U) Negative Negative [facility] Work Phone: Urine pHon 05-19-2021 pH (U) 7.0 [pH] [facility] Work Phone: Urine sediment bacteria coun t by microscopy (number/high power field)on 05-19-2021 Bacteria LM.HPF (Urine sed) [#/Area] 0 /[HPF] None Seen [facility] Work Phone: Urine specific gravity measu rementon 05-19-2021 Specific gravity (U) [Rel density] 1.010 [facility] Work Phone: Urobilinogen Auto test strip Ql (U)on 05-19-2021 Urobilinogen Ql (U) Normal mg/dl Normal [facility] Work Phone: Whole blood hemoglobin A1c/t otal hemoglobin ratio (mass fraction)on 05-19-2021 HbA1c (Bld) [Mass fraction] 5.6 % 3.8-5.6 [facility] Work Phone: Comment on above: Normal < 5.7 % Predi abetic 5.7 - 6.4 % Diabetic >or= 6.5 % Please note range changes. EMERGENCY REPORTon EMERGENCY REPORT [facility] EMERGENCY ROOM REPORT NAME ACCOUNT SEX AGE ADMIT DISCHARGE PT MED. RECORD# NUMBER DATE DATE TYPE DIANNA, [id number] M 61 02/07/21 02/07/21 3 LIA Viveros [id number] ROOM: ER DATE OF : 1960 DICTATING PHYSICIAN: Adele Jordan CHIEF COMPLAINT/HISTORY OF PRESENT ILLNESS: The patient is a 61-year-old male with no pertinent past medical history presenting to the emergency department for evaluation of chills, myalgias, for the last 8 days. Recently COVID positive outpatient this past Nai along with his . Patient endorses shortness [...] Jordan DO (more content not included)... Normal [facility] TROPONIN I, HIGH SENSITIVITY on 02-08-2021 HS TROPONIN 8.1 pg/mL Normal 0.0 - 76.2 [facility] Comment on above: Performed By: #### 2 20086 #### [facility],[address] [place] [address] BMP with eGFRon 02-07-2021 AGE 61 years Normal [facility] Comment on above: Performed By: #### 2 17598 #### [facility],[address] [place] [address] Anion gap [Moles/Vol] 14 mmol/L Normal 10 - 20 [facility] Comment on above: Performed By: #### 2 71849 #### [facility],[address] [place] [address]1246 BMP with eGFR Normal [facility] Comment on above: Result Comment: BASI C METABOLIC PANEL Performed By: #### 2 19959 #### [facility],[address] [place] [address] Calcium [Mass/Vol] 8.5 mg/dL Normal 8.5 - 10.1 [facility] Comment on above: Performed By: #### 2 39313 #### [facility],[address] [place] [address] Chloride [Moles/Vol] 97 mmol/L Low 98 - 107 [facility] Comment on above: Performed By: #### 2 54625 #### [facility],[address] [place] [address]605 CO2 [Moles/Vol] 24.5 mmol/L Normal 21.0 - 32.0 [facility] Comment on above: Performed By: #### 2 92590 #### [facility],[address] [place] [address]48 Creatinine [Mass/Vol] 0.75 mg/dL Normal 0.70 - 1.30 [facility] Comment on above: Performed By: #### 2 49511 #### [facility],[address] [place] [address]3301 GFR/1.73 sq M.predicted among non-blacks MDRD (S/P/Bld) [Vol rate/Area] mL/min/{1.73_m2} Normal 60 - 999 [facility] Comment on above: Performed By: #### 2 65595 #### [facility],[address] [place] [address] Result Comment: ACCO RDING TO THE NATIONAL KIDNEY DISEASE EDUCATION PROGRAM(NKDE), A NORMAL eGFR IS A VALUE GREATER THAN OR EQUAL TO 60 ML/MIN/1.73 SQ METERS. CHRONIC KIDNEY DISEASE: <60mL/MIN/1.73 SQ METERS KIDNEY FAILURE: <15mL/MIN/1.73 SQ METERS THIS TEST SHOULD ONLY BE USED FOR PATIENTS 18 YEARS OF AGE AND OLDER. Glucose [Mass/Vol] 112 mg/dL High 74 - 106 [facility] Comment on above: Performed By: #### 2 83972 #### [place] [address] Potassium [Moles/Vol] 3.5 mmol/L Normal 3.5 - 5.1 [facility] Comment on above: Performed By: #### 2 21398 #### [place] [address] Sodium [Moles/Vol] 132 mmol/L Low 136 - 145 [facility] Comment on above: Performed By: #### 2 72373 #### [place] [address] Urea nitrogen [Mass/Vol] 8 mg/dL Normal 7 - 18 [facility] Comment on above: Performed By: #### 2 13230 #### [place] [address] CBC + DIFFon 02-07-2021 Baso # 0.00 x10EE3/UL Normal 0.00 - 0.10 [facility] Comment on above: Performed By: #### 2 35186 #### [place] [id number] Basophils/100 WBC (Bld) 0.3 % Normal 0.0 - 2.0 [facility] Comment on above: Performed By: #### 2 72944 #### [place] [address] CBC + DIFF Normal [facility] Comment on above: Result Comment: CBC- COMPLETE BLOOD COUNT Performed By: #### 2 27728 #### [facility],[address] [place] [address]8886 EO # 0.00 x10EE3/UL Normal 0.00 - 0.50 [facility] Comment on above: Performed By: #### 2 42155 #### [facility],[address] [place], [place] [id number] Eosinophils/100 WBC (Bld) 0.2 % Normal 0.0 - 7.0 [facility] Comment on above: Performed By: #### 2 85603 #### [facility],[address] [place] [address] Erythrocyte distribution width (RBC) [Ratio] 13.5 % Normal 12.0 - 15.6 [facility] Comment on above: Performed By: #### 2 33058 #### [facility],[address] [place], [place] [address] Hematocrit (Bld) [Volume fraction] 43.8 % Normal 40.0 - 52.0 [facility] Comment on above: Performed By: #### 2 11997 #### [facility],[address] [place] [address]6426 Hemoglobin (Bld) [Mass/Vol] 15.0 g/dL Normal 13.0 - 17.5 [facility] Comment on above: Performed By: #### 2 93041 #### [facility],[address] [place] [address] Lymph # 0.60 x10EE3/UL Low 0.80 - 2.80 [facility] Comment on above: Performed By: #### 2 39356 #### [facility],[address] [place] [address]44 Lymphocytes/100 WBC (Bld) 14.7 % Low 20.0 - 45.0 [facility] Comment on above: Performed By: #### 2 88072 #### [facility],[address] [place] [address] MANUAL DIFF N/A Normal [facility] Comment on above: Performed By: #### 2 90509 #### [facility],[address] [place] [address] MCH (RBC) [Entitic mass] 29 pg Normal 27 - 33 [facility] Comment on above: Performed By: #### 2 35959 #### [facility],[address] [place] [address] MCHC 34 X10 3 Normal 32 - 36 [facility] Comment on above: Performed By: #### 2 16633 #### [facility],[address] [place] [address] MCV (RBC) [Entitic vol] 84 fL Normal 81 - 98 [facility] Comment on above: Performed By: #### 2 89858 #### [facility],[address] [place] [address] [place] # 0.40 x10EE3/UL Normal 0.20 - 1.00 [facility] Comment on above: Performed By: #### 2 58081 #### [facility],[address] [place] [address] MONOS % 10.1 % High 0.0 - 10.0 [facility] Comment on above: Performed By: #### 2 68002 #### [facility],[address] [place] [address] Morphology Richard (Bld) [Interp] N/A Normal [facility] Comment on above: Result Comment: {CD] Performed By: #### 2 07836 #### [facility],[address] [place] [address] Neut # 3.00 x10EE3/UL Normal 1.50 - 7.10 [facility] Comment on above: Performed By: #### 2 65059 #### [facility],[address] [place] [address] Neutrophils/100 WBC (Bld) 74.7 % Normal 46.0 - 76.0 [facility] Comment on above: Performed By: #### 2 91555 #### [facility],[address] [place] [address] PLATELET 187 x10EE3/UL Normal 150 - 450 [facility] Comment on above: Performed By: #### 2 75007 #### [facility],[address] [place] [address] Platelet mean volume (Bld) [Entitic vol] 7.5 fL Normal 6.4 - 10.5 [facility] Comment on above: Result Comment: AUTO MATED DIFFERENTIAL Performed By: #### 2 51698 #### [address] [address] RBC 5.22 x 10EE6/UL Normal 4.50 - 6.00 [facility] Comment on above: Performed By: #### 2 80655 #### [facility],[address] [place] [address] 67232 WBC 4.0 x 10EE3/UL Low 4.5 - 10.8 [facility] Comment on above: Performed By: #### 2 41161 #### [facility],[address] [place] [address] CHEST 1 VIEWon 02-07-2021 CHEST 1 VIEW [place] [address] Patient: LIA BUSTAMANTE Phone#: : 1960 Age: 61 Gender: M Pt. Type: ER Account: [id number] Location: 2 Ordering: DR. SALBADOR CHEATHAM Exam Date: 02/07/2021/20:11 Family Phys: Charge Code: 912891 Physician: Hunt Order #: [id number] DLP Dose#: PROCEDURE: X-RAY CHEST 1 VIEW [...] Richards MD on 02/09/2021 at 7:43 Normal [facility] CORONAVIRUS (SARS) ANTIGEN T ESTon 02-07-2021 EXTERNAL QC DONE? YES Normal [facility] Comment on above: Performed By: #### 2 15091 #### [facility],[address] [place] [address] INTERNAL CONTROL PASS Normal [facility] Comment on above: Performed By: #### 2 54815 #### [facility],[address] [place] [address] SARS ANTIGEN Positive Critically abnormal NORMAL: NEGATIVE [facility] Comment on above: Result Comment: { CA LLED TO RA@2054 TO BRAX[place] { READ BACK BY RB@ 2054 TO EML Performed By: #### 2 66937 #### [facility],[address] [place], [place] [phone] SEND TO IC? YES Normal [facility] Comment on above: Result Comment: SARS -CoV-2 THIS TEST IS BEING USED UNDER THE FDA EUA PROCEDURE. THIS ASSAY HAS BEEN VALIDATED AT [facility] FOR USE WITH NASAL AND NASOPHARYNGEAL SWAB [...] PUBLIC HEALTH AUTHORITIES. Performed By: #### 2 55077 #### [place] [address] CT CHEST (PE PROTOCOL)on CT CHEST (PE PROTOCOL) [place] [address] Patient: LIA BUSTAMANTE Phone#: : 1960 Age: 61 Gender: M Pt. Type: ER Account: [id number] Location: [facility] Ordering: DR. SALBADOR CHEATHAM Exam Date: 02/07/2021/21:05 Family Phys: Charge Code: [id number] Physician: Hunt Order #: [id number] DLP Dose#: 5.3 mGy PROCEDURE: CT CHEST [...] pulmonary embolus. 2. Bilateral infiltrates are present. [place] [address] Patient: LIA BUSTAMANTE Phone#: : 1960 Age: 61 Gender: M Pt. Type: ER Account: [id number] Location: [facility] Ordering: DR. SALBADOR CHEATHAM Exam Date: 02/07/2021/21:05 Family Phys: Charge Code: [id number] Physician: Hunt Order #: [id number] DLP Dose#: 5.3 mGy Dictated by: Fide Richards MD on 02/09/2021 at 8:37 Approved by: Fide Richards MD on 02/09/2021 at 8:39 Normal [facility] NT-proBNPon 02-07-2021 Natriuretic peptide B (Bld) [Mass/Vol] 38 pg/mL Normal 0 - 125 [facility] Comment on above: Performed By: #### 2 95390 #### [facility],[address] [place] [address] TROPONIN I, HIGH SENSITIVITY on 02-07-2021 HS TROPONIN 6.6 pg/mL Normal 0.0 - 76.2 [facility] Comment on above: Performed By: #### 2 59041 #### [facility],[address] [facility] [address] Hemoglobin A1Con 11-25-2020 Glucose [Mass/Vol] 114 mg/dL Normal [facility] Comment on above: Result Comment: The ADA and AACC recommend providing the estimated average glucose result to permit better patient understanding of their HBA1c result. Performed By: #### A LT, GLYHGB, LIPR, BMP #### [employer] [facility] [place] [address] Environmental Protection Economist: Sameer Worthington MD HbA1c (Bld) [Mass fraction] 5.6 % Normal 4.0-6.0 [facility] Comment on above: Performed By: #### A LT, GLYHGB, LIPR, BMP #### [employer] [address] [place] [address] Environmental Protection Economist: Sameer Worthington MD [place] 11-24-2020 ALT [Catalytic activity/Vol] 20 U/L Normal 5-41 [facility] Comment on above: Performed By: #### A LT, GLYHGB, LIPR, BMP #### [employer] [address] [place] [address] Environmental Protection Economist: Sameer Worthington MD Basic Metabolic Profon 11-24 (cont.) Normal [facility] Comment on above: Result Comment: Aver age GFR for 60-69 years old: 85 mL/min/1.73sq m Chronic Kidney Disease: <60 mL/min/1.73sq m Kidney failure: <15 mL/min/1.73sq m eGFR calculated using average adult body mass. Additional eGFR calculator available at: http://www.[employer].com/multiple_crcl_2012.htm Performed By: #### A LT, GLYHGB, LIPR, BMP #### [employer] [facility] [place], [place] [id number] Environmental Protection Economist: Sameer Worthington MD Anion gap [Moles/Vol] 10 mmol/L Normal 9-17 [facility] Comment on above: Performed By: #### A LT, GLYHGB, LIPR, BMP #### [facility] [employer] [address] [place] [address] Environmental Protection Economist: Sameer Worthington MD Calcium [Mass/Vol] 9.4 mg/dL Normal 8.6-10.4 [facility] Comment on above: Performed By: #### A LT, GLYHGB, LIPR, BMP #### [facility] [address] [place] [address] Environmental Protection Economist: Sameer Worthington MD Chloride [Moles/Vol] 105 mmol/L Normal 98-107 [facility] Comment on above: Performed By: #### A LT, GLYHGB, LIPR, BMP #### [facility] [address] [place] [address] Environmental Protection Economist: Sameer Worthington MD CO2 [Moles/Vol] 25 mmol/L Normal 20-31 [facility] Comment on above: Performed By: #### A LT, GLYHGB, LIPR, BMP #### [facility] [address] [place] [address] Environmental Protection Economist: Sameer Worthington MD Creatinine [Mass/Vol] 0.80 mg/dL Normal 0.70-1.20 [facility] Comment on above: Performed By: #### A LT, GLYHGB, LIPR, BMP #### [facility] [address] [place] [address] Environmental Protection Economist: Sameer Worthington MD GFR, Amer >60 Normal >60 [facility] Comment on above: Performed By: #### A LT, GLYHGB, LIPR, BMP #### [facility] [address] [place] [address] Environmental Protection Economist: Sameer Worthington MD GFR,non Amer >60 Normal >60 [facility] Comment on above: Performed By: #### A LT, GLYHGB, LIPR, BMP #### [address] [address] Environmental Protection Economist: Sameer Worthington MD Glucose [Mass/Vol] 97 mg/dL Normal 70-99 [facility] Comment on above: Performed By: #### A LT, GLYHGB, LIPR, BMP #### [address] [address] Environmental Protection Economist: Sameer Worthington MD Potassium [Moles/Vol] 4.3 mmol/L Normal 3.7-5.3 [facility] Comment on above: Performed By: #### A LT, GLYHGB, LIPR, BMP #### [address] [address] Environmental Protection Economist: Sameer Worthington MD Sodium [Moles/Vol] 140 mmol/L Normal 135-144 [facility] Comment on above: Performed By: #### A LT, GLYHGB, LIPR, BMP #### [address] [address] Environmental Protection Economist: Sameer Worthington MD Urea nitrogen [Mass/Vol] 13 mg/dL Normal 8-23 [facility] Comment on above: Performed By: #### A LT, GLYHGB, LIPR, BMP #### [address] [address] Environmental Protection Economist: Sameer Worthington MD BUN/CRE Ratio NOT REPORTED Normal 9-20 [facility] Comment on above: Performed By: #### A LT, GLYHGB, LIPR, BMP #### [address] [address] Environmental Protection Economist: Sameer Worthington MD Staging: NOT REPORTED Normal [facility] Comment on above: Performed By: #### A LT, GLYHGB, LIPR, BMP #### [facility] [address] [place] [address] Environmental Protection Economist: Sameer Worthington MD Lipid Profileon 11-24-2020 Cholesterol [Mass/Vol] 157 mg/dL Normal <200 [facility] Comment on above: Result Comment: Cholesterol Guidelines: <200 Desirable 200-240 Borderline >240 Undesirable Performed By: #### A LT, GLYHGB, LIPR, BMP #### [facility] [address] [place] [address] Environmental Protection Economist: Sameer Worthington MD Cholesterol in HDL [Mass/Vol] 45 mg/dL Normal >40 [facility] Comment on above: Result Comment: HDL Guidelines: <40 Undesirable 40-59 Borderline >59 Desirable Performed By: #### A LT, GLYHGB, LIPR, BMP #### [address] [address] Environmental Protection Economist: Sameer Worthington MD Cholesterol in LDL [Mass/Vol] 83 mg/dL Normal 0-130 [facility] Comment on above: Result Comment: LDL Guidelines: <100 Desirable 100-129 Near to/above Desirable 130-159 Borderline >159 Undesirable Direct (measured) LDL and calculated LDL are not interchangeable tests. Performed By: #### A LT, GLYHGB, LIPR, BMP #### [facility] [address] [place] [address] Environmental Protection Economist: Sameer Worthington MD Cholesterol.total/Chol esterol in HDL [Mass ratio] 3.5 {ratio} Normal <5 [facility] Comment on above: Performed By: #### A LT, GLYHGB, LIPR, BMP #### [facility] [address] [place] [address] Environmental Protection Economist: Sameer Worthington MD Triglyceride [Mass/Vol] 147 mg/dL Normal <150 [facility] Comment on above: Result Comment: Triglyceride Guidelines: <150 Desirable 150-199 Borderline 200-499 High >499 Very high Based on AHA Guidelines for fasting triglyceride, November 2011. Performed By: #### A LT, GLYHGB, LIPR, BMP #### [facility] [address] [place], [place] [phone] Environmental Protection Economist: Sameer Worthington MD Cholesterol,VLDL NOT REPORTED Normal 03-23 [facility] Comment on above: Performed By: #### A LT, GLYHGB, LIPR, BMP #### [facility] [address], [place] [phone] Environmental Protection Economist: Sameer Worthington MD CT LUNG SCREENING (INITIAL/A [...] dose to as low as reasonably achievable. [id number]: 32 cm Dose Length Product: 71.07 mGy [...] like to register your patient with the [facility] Lung Nodule/Lung Cancer Screening Program, please contact the Nurse Navigator at [phone]). Interpreted by: Pako Buitrago MD Signed by: Pako Buitrago MD 06/06/20 Final result Normal [facility] 05-15-2020 ALT [Catalytic activity/Vol] 21 U/L Normal 5-41 [facility] Comment on above: Performed By: #### L IPR, MG, ALT, BMP #### [facility] [address] [place] [address] Environmental Protection Economist: Jim Thompson DO #### PSAS, GLYHGB #### [address] [phone] Environmental Protection Economist: Sameer Worthington MD Basic Metabolic Profon 05-15 (cont.) Normal [facility] Comment on above: Result Comment: Aver age GFR for 60-69 years old: 85 mL/min/1.73sq m Chronic Kidney Disease: <60 mL/min/1.73sq m Kidney failure: <15 mL/min/1.73sq m eGFR calculated using average adult body mass. Additional eGFR calculator available at: http://www.[employer]/multiple_crcl_2011.htm Performed By: #### L IPR, MG, ALT, BMP #### [facility] [address] [place] [address] Environmental Protection Economist: Jim Thompson DO #### PSAS, GLYHGB #### [address] [phone] Environmental Protection Economist: Sameer Worthington MD Anion gap [Moles/Vol] 7 mmol/L Low 9-17 [facility] Comment on above: Performed By: #### L IPR, MG, ALT, BMP #### [facility] [place] [address] Environmental Protection Economist: Jim Thompson DO #### PSAS, GLYHGB #### [address] [address] Environmental Protection Economist: Sameer Worthington MD Calcium [Mass/Vol] 9.3 mg/dL Normal 8.6-10.4 [facility] Comment on above: Performed By: #### L IPR, MG, ALT, BMP #### [facility] [place] [address] Environmental Protection Economist: Jim Thompson DO #### PSAS, GLYHGB #### [address] [address] Environmental Protection Economist: Sameer Worthington MD Chloride [Moles/Vol] 106 mmol/L Normal 98-107 [facility] Comment on above: Performed By: #### L IPR, MG, ALT, BMP #### [facility] [place] [address] Environmental Protection Economist: Jim Thompson DO #### PSAS, GLYHGB #### [address] [address] Environmental Protection Economist: Sameer Worthington MD CO2 [Moles/Vol] 27 mmol/L Normal 20-31 [facility] Comment on above: Performed By: #### L IPR, MG, ALT, BMP #### [facility] [address] [place] [address] Environmental Protection Economist: Jim Thompson DO #### PSAS, GLYHGB #### [address] [address] Environmental Protection Economist: Sameer Worthington MD Creatinine [Mass/Vol] 0.85 mg/dL Normal 0.70-1.20 [facility] Comment on above: Performed By: #### L IPR, MG, ALT, BMP #### [facility] [place] [address] Environmental Protection Economist: Jim Thompson DO #### PSAS, GLYHGB #### [address] [address] Environmental Protection Economist: Sameer Worthington MD GFR, Amer >60 Normal >60 [facility] Comment on above: Performed By: #### L IPR, MG, ALT, BMP #### [facility] [address] [place] [address] Environmental Protection Economist: Jim Thompson DO #### PSAS, GLYHGB #### [address] [address] Environmental Protection Economist: Sameer Worthington MD GFR,non Amer >60 Normal >60 [facility] Comment on above: Performed By: #### L IPR, MG, ALT, BMP #### [facility] [place] [address] Environmental Protection Economist: Jim Thompson DO #### PSAS, GLYHGB #### [address] [address] Environmental Protection Economist: Sameer Worthington MD Glucose [Mass/Vol] 107 mg/dL High 70-99 [facility] Comment on above: Performed By: #### L IPR, MG, ALT, BMP #### [facility] [place] [address] Environmental Protection Economist: Jim Thompson DO #### PSAS, GLYHGB #### [address] [address] Environmental Protection Economist: Sameer Worthington MD Potassium [Moles/Vol] 4.3 mmol/L Normal 3.7-5.3 [facility] Comment on above: Performed By: #### L IPR, MG, ALT, BMP #### [facility] [place] [address] Environmental Protection Economist: Jim Thompson DO #### PSAS, GLYHGB #### [address] [address] Environmental Protection Economist: Sameer Worthington MD Sodium [Moles/Vol] 140 mmol/L Normal 135-144 [facility] Comment on above: Performed By: #### L IPR, MG, ALT, BMP #### [facility] [address] [place] [address] Environmental Protection Economist: Jim Thompson DO #### PSAS, GLYHGB #### [address] [address] Environmental Protection Economist: Sameer Worthington MD Urea nitrogen [Mass/Vol] 17 mg/dL Normal 8-23 [facility] Comment on above: Performed By: #### L IPR, MG, ALT, BMP #### [facility] [address] [place] [address] Environmental Protection Economist: Jim Thompson DO #### PSAS, GLYHGB #### [address] [address] Environmental Protection Economist: Sameer Worthington MD BUN/CRE Ratio NOT REPORTED Normal 9-20 [facility] Comment on above: Performed By: #### L IPR, MG, ALT, BMP #### [facility] [address] [place] [address] Environmental Protection Economist: Jim Thompson DO #### PSAS, GLYHGB #### [address] [address] Environmental Protection Economist: Sameer Worthington MD Staging: NOT REPORTED Normal [facility] Comment on above: Performed By: #### L IPR, MG, ALT, BMP #### [facility] [address] [place] [address] Environmental Protection Economist: Jim Thompson DO #### PSAS, GLYHGB #### [address] [address] Environmental Protection Economist: Sameer Worthington MD Hemoglobin A1Con 05-15-2020 Glucose [Mass/Vol] 123 mg/dL Normal [facility] Comment on above: Result Comment: The ADA and AACC recommend providing the estimated average glucose result to permit better patient understanding of their HBA1c result. Performed By: #### L IPR, MG, ALT, BMP #### [facility] [address] [place] [address] Environmental Protection Economist: Jim Thompson DO #### PSAS, GLYHGB #### [facility] [address] [place] [address] Environmental Protection Economist: Sameer Worthington MD HbA1c (Bld) [Mass fraction] 5.9 % Normal 4.0-6.0 [facility] Comment on above: Performed By: #### L IPR, MG, ALT, BMP #### [facility] [place] [address] Environmental Protection Economist: Jim Thompson DO #### PSAS, GLYHGB #### [address] [address] Environmental Protection Economist: Sameer Worthington MD Lipid Profileon 05-15-2020 Cholesterol [Mass/Vol] 167 mg/dL Normal <200 [facility] Comment on above: Result Comment: Cholesterol Guidelines: <200 Desirable 200-240 Borderline >240 Undesirable Performed By: #### L IPR, MG, ALT, BMP #### [facility] [place] [address] Environmental Protection Economist: Jim Thompson DO #### PSAS, GLYHGB #### [address] [address] Environmental Protection Economist: Sameer Worthington MD Cholesterol in HDL [Mass/Vol] 46 mg/dL Normal >40 [facility] Comment on above: Result Comment: HDL Guidelines: <40 Undesirable 40-59 Borderline >59 Desirable Performed By: #### L IPR, MG, ALT, BMP #### [facility] [address] [place] [address] Environmental Protection Economist: Jim Thompson DO #### PSAS, GLYHGB #### [facility] [place] [address] Environmental Protection Economist: Sameer Worthington MD Cholesterol in LDL [Mass/Vol] 98 mg/dL Normal 0-130 [facility] Comment on above: Result Comment: LDL Guidelines: <100 Desirable 100-129 Near to/above Desirable 130-159 Borderline >159 Undesirable Direct (measured) LDL and calculated LDL are not interchangeable tests. Performed By: #### L IPR, MG, ALT, BMP #### [facility] [address] [place] [address] Environmental Protection Economist: Jim Thompson DO #### PSAS, GLYHGB #### [facility] [address] [place] [address] Environmental Protection Economist: Sameer Worthington MD Cholesterol.total/Chol esterol in HDL [Mass ratio] 3.6 {ratio} Normal <5 [facility] Comment on above: Performed By: #### L IPR, MG, ALT, BMP #### [facility] [address] [place] [address] Environmental Protection Economist: Jim Thompson DO #### JESSICA, GLYHGB #### [address] [address] Environmental Protection Economist: Sameer Worthington MD Triglyceride [Mass/Vol] 113 mg/dL Normal <150 [facility] Comment on above: Result Comment: Triglyceride Guidelines: <150 Desirable 150-199 Borderline 200-499 High >499 Very high Based on AHA Guidelines for fasting triglyceride, November 2011. Performed By: #### L IPR, MG, ALT, BMP #### [facility] [address] [place] [address] Environmental Protection Economist: Jim Thompson DO #### PSAS, GLYHGB #### [address] [address] Environmental Protection Economist: Sameer Worthington MD Cholesterol,VLDL NOT REPORTED Normal 1-30 [facility] Comment on above: Performed By: #### L IPR, MG, ALT, BMP #### [facility] [address] [facility] [place] [address] Environmental Protection Economist: Jim Thompson DO #### PSAS, GLYHGB #### [address] [address] Environmental Protection Economist: Sameer Worthington MD Magnesiumon 0 Magnesium [Mass/Vol] 2.0 mg/dL Normal 1.6-2.6 [facility] Comment on above: Performed By: #### L IPR, MG, ALT, BMP #### [facility] [address] [place] [address] Environmental Protection Economist: Jim Thompson DO #### PSAS, GLYHGB #### [address] [address] Environmental Protection Economist: Sameer Worthington MD PSA, Screeningon 05-15-2020 Prostatic Spec. Ag 1.50 ug/L Normal <4.1 [facility] Comment on above: Result Comment: The Jose Daniel ECLIA assay is used. Results obtained with different assay methods cannot be used interchangeably. Performed By: #### L IPR, MG, ALT, BMP #### [facility] [place] [address] Environmental Protection Economist: Jim Thompson DO #### PSAS, GLYHGB #### [address] [address] Environmental Protection Economist: Sameer Worthington MD Hemoglobin A1Con 09-17-2019 Glucose [Mass/Vol] 120 mg/dL Normal [facility] Comment on above: Result Comment: The ADA and AACC recommend providing the estimated average glucose result to permit better patient understanding of their HBA1c result. Performed By: #### L IPR, MG, ALT, BMP #### [facility] [address] [place] [address] Environmental Protection Economist: Jim Thompson DO #### PSAS, GLYHGB #### [address] [address] Environmental Protection Economist: Sameer Worthington MD HbA1c (Bld) [Mass fraction] 5.8 % Normal 4.0-6.0 [facility] Comment on above: Performed By: #### L IPR, MG, ALT, BMP #### [facility] [place] [address] Environmental Protection Economist: Jim Thompson DO #### PSAS, GLYHGB #### [address] [address] Environmental Protection Economist: Sameer Worthington MD [place] 09-152019 ALT [Catalytic activity/Vol] 30 U/L Normal 5-41 [facility] Comment on above: Performed By: #### A LT, BMP, LIPR, MG #### [facility] [address] [place] [address] Environmental Protection Economist: Jim Thompson DO #### GLYHGB #### [address] [address] Environmental Protection Economist: Sameer Worthington MD Basic Metabolic Profon 09-15 (cont.) Normal [facility] Comment on above: Result Comment: Aver age GFR for 60-69 years old: 85 mL/min/1.73sq m Chronic Kidney Disease: <60 mL/min/1.73sq m Kidney failure: <15 mL/min/1.73sq m eGFR calculated using average adult body mass. Additional eGFR calculator available at: http://www.[employer]/multiple_crcl_2012.htm Performed By: #### A LT, BMP, LIPR, MG #### [facility] [address] [place] [address] Environmental Protection Economist: Jim Thompson DO #### GLYHGB #### [address] [address] Environmental Protection Economist: Sameer Worthington MD Anion gap [Moles/Vol] 10 mmol/L Normal 9-17 [facility] Comment on above: Performed By: #### A LT, BMP, LIPR, MG #### [facility] [address] [place] [address] Environmental Protection Economist: Jim Thompson DO #### GLYHGB #### [address] [address] Environmental Protection Economist: Sameer Worthington MD Calcium [Mass/Vol] 9.1 mg/dL Normal 8.6-10.4 [facility] Comment on above: Performed By: #### A LT, BMP, LIPR, MG #### [facility] [address] [place] [address] Environmental Protection Economist: Jim Thompson DO #### GLYHGB #### [address] [address] Environmental Protection Economist: Sameer Worthington MD Chloride [Moles/Vol] 103 mmol/L Normal 98-107 [facility] Comment on above: Performed By: #### A LT, BMP, LIPR, MG #### [facility] [address] [place] [address] Environmental Protection Economist: Jim Thompson DO #### GLYHGB #### [address] [address] Environmental Protection Economist: Sameer Worthington MD CO2 [Moles/Vol] 24 mmol/L Normal 20-31 [facility] Comment on above: Performed By: #### A LT, BMP, LIPR, MG #### [facility] [address] [place] [address] Environmental Protection Economist: Jim Thompson DO #### GLYHGB #### [address] [address] Environmental Protection Economist: Sameer Worthington MD Creatinine [Mass/Vol] 0.81 mg/dL Normal 0.70-1.20 [facility] Comment on above: Performed By: #### A LT, BMP, LIPR, MG #### [facility] [address] [place] [address] Environmental Protection Economist: Jim Thompson DO #### GLYHGB #### [address] [phone] Environmental Protection Economist: Sameer Worthington MD GFR, Amer >60 Normal >60 [facility] Comment on above: Performed By: #### A LT, BMP, LIPR, MG #### [facility] [address] [place] [address] Environmental Protection Economist: Jim Thompson DO #### GLYHGB #### [address] [phone] Environmental Protection Economist: Sameer Worthington MD GFR,non Amer >60 Normal >60 [facility] Comment on above: Performed By: #### A LT, BMP, LIPR, MG #### [facility] [address] [place] [address] Environmental Protection Economist: Jim Thompson DO #### GLYHGB #### [address] [address] Environmental Protection Economist: Sameer Worthington MD Glucose [Mass/Vol] 111 mg/dL High 70-99 [facility] Comment on above: Performed By: #### A LT, BMP, LIPR, MG #### [facility] [address] [place] [address] Environmental Protection Economist: Jim Thompson DO #### GLYHGB #### [address] [address] Environmental Protection Economist: Sameer Worthington MD Potassium [Moles/Vol] 3.9 mmol/L Normal 3.7-5.3 [facility] Comment on above: Performed By: #### A LT, BMP, LIPR, MG #### [facility] [address] [place] [address] Environmental Protection Economist: Jim Thompson DO #### GLYHGB #### [address] [address] Environmental Protection Economist: Sameer Worthington MD Sodium [Moles/Vol] 137 mmol/L Normal 135-144 [facility] Comment on above: Performed By: #### A LT, BMP, LIPR, MG #### [facility] [address] [place] [address] Environmental Protection Economist: Jim Thompson DO #### GLYHGB #### [address] [address] Environmental Protection Economist: Sameer Worthington MD Urea nitrogen [Mass/Vol] 11 mg/dL Normal 8-23 [facility] Comment on above: Performed By: #### A LT, BMP, LIPR, MG #### [facility] [address] [place] [address] Environmental Protection Economist: Jim Thompson DO #### GLYHGB #### [address] [address] Environmental Protection Economist: Sameer Worthington MD BUN/CRE Ratio NOT REPORTED Normal 9-20 [facility] Comment on above: Performed By: #### A LT, BMP, LIPR, MG #### [facility] [address] [place] [address] Environmental Protection Economist: Jim Thompson DO #### GLYHGB #### [address] [address] Environmental Protection Economist: Sameer Worthington MD Staging: NOT REPORTED Normal [facility] Comment on above: Performed By: #### A LT, BMP, LIPR, MG #### [facility] [address] [place] [address] Environmental Protection Economist: Jim Thompson DO #### GLYHGB #### [address] [address] Environmental Protection Economist: Sameer Worthington MD Lipid Profileon 09-16-2019 Cholesterol [Mass/Vol] 149 mg/dL Normal <200 [facility] Comment on above: Result Comment: Cholesterol Guidelines: <200 Desirable 200-240 Borderline >240 Undesirable Performed By: #### A LT, BMP, LIPR, MG #### [facility] [address] [place] [address] Environmental Protection Economist: Jim Thompson DO #### GLYHGB #### [address] [address] Environmental Protection Economist: Sameer Worthington MD Cholesterol in HDL [Mass/Vol] 42 mg/dL Normal >40 [facility] Comment on above: Result Comment: HDL Guidelines: <40 Undesirable 40-59 Borderline >59 Desirable Performed By: #### A LT, BMP, LIPR, MG #### [facility] [place] [address] Environmental Protection Economist: Jim Thompson DO #### GLYHGB #### [address] [address] Environmental Protection Economist: Sameer Worthington MD Cholesterol in LDL [Mass/Vol] 79 mg/dL Normal 0-130 [facility] Comment on above: Result Comment: LDL Guidelines: <100 Desirable 100-129 Near to/above Desirable 130-159 Borderline >159 Undesirable Direct (measured) LDL and calculated LDL are not interchangeable tests. Performed By: #### A LT, BMP, LIPR, MG #### [facility] [address] [place] [address] Environmental Protection Economist: Jim Thompson DO #### GLYHGB #### [address] [address] Environmental Protection Economist: Sameer Worthington MD Cholesterol.total/Chol esterol in HDL [Mass ratio] 3.5 {ratio} Normal <5 [facility] Comment on above: Performed By: #### A LT, BMP, LIPR, MG #### [facility] [address] [place] [address] Environmental Protection Economist: Jim Thompson DO #### GLYHGB #### [address] [address] Environmental Protection Economist: Sameer Worthington MD Triglyceride [Mass/Vol] 139 mg/dL Normal <150 [facility] Comment on above: Result Comment: Triglyceride Guidelines: <150 Desirable 150-199 Borderline 200-499 High >499 Very high Based on AHA Guidelines for fasting triglyceride, November 2011. Performed By: #### A LT, BMP, LIPR, MG #### [facility] [address] [place] [address] Environmental Protection Economist: Jim Thompson DO #### GLYHGB #### [id number] [place] [address] Environmental Protection Economist: Sameer Worthington MD Cholesterol,VLDL NOT REPORTED Normal 1-30 [facility] Comment on above: Performed By: #### A LT, BMP, LIPR, MG #### [facility] [address] [place] [address] Environmental Protection Economist: Jim Thompson DO #### GLYHGB #### [facility] [address] [place], [place] [id number] Environmental Protection Economist: Sameer Worthington MD Magnesiumon 09-16-2019 Magnesium [Mass/Vol] 2.1 mg/dL Normal 1.6-2.6 [facility] Comment on above: Performed By: #### L IPR, MG, ALT, BMP #### [facility] [address] [place] [address] Environmental Protection Economist: Jim Thompson DO #### PSAS, GLYHGB #### [facility] [place], [place] [id number] Environmental Protection Economist: Sameer Worthington MD Vital Signs Date Time Vital Sign Value Performing Clinician Faci lity 04-25-2024 09:43-0500 Body height 175.[address] Spencer Rahman MD Work Phone: [facility] 12-26-2021 13:14-0400 Diastolic blood pressure 74 mm[Hg] Dr. Spencer Rahman Work Phone: [facility] Work Phone: 12-26-2021 13:14-0400 Heart rate 79 /min Dr. Spencer Rahman Work Phone: [facility] Work Phone: 12-26-2021 13:14-0400 Respiratory rate 16 /min Dr. Spencer Rahman Work Phone: [facility] Work Phone: 12-26-2021 13:14-0400 SaO2% (BldA) [Mass fraction] 98 % Dr. Spencer Rahman Work Phone: [facility] Work Phone: 12-26-2021 13:14-0400 Systolic blood pressure 138 mm[Hg] Dr. Spencer Rahman Work Phone: [facility] Work Phone: 12-26-2021 10:11-0400 Body height 172.[address] Spencer Rahman Work Phone: [facility] Work Phone: 12-26-2021 10:11-0400 Body mass index (BMI) [Ratio] 26.7 kg/m2 Dr. Spencer Rahman Work Phone: [facility] Work Phone: 12-26-2021 10:11-0400 Body weight 79.[address] Spencer Rahman Work Phone: [facility] Work Phone: 12-26-2021 10:08-0400 Body temperature 97.2 [degF] Dr. Spencer Rahman Work Phone: [facility] Work Phone: 12-25-2021 08:03-0400 Body temperature 97.7 [degF] Dr. Spencer Rahman Work Phone: [facility] Work Phone: 12-25-2021 08:03-0400 Diastolic blood pressure 85 mm[Hg] Dr. Spencer Rahman Work Phone: [facility] Work Phone: 12-25-2021 08:03-0400 Heart rate 78 /min Dr. Spencer Rahman Work Phone: [facility] Work Phone: 12-25-2021 08:03-0400 Respiratory rate 16 /min Dr. Spencer Rahman Work Phone: [facility] Work Phone: 12-25-2021 08:03-0400 SaO2% (BldA) [Mass fraction] 96 % Dr. Spencer Rahman Work Phone: [facility] Work Phone: 12-25-2021 08:03-0400 Systolic blood pressure 133 mm[Hg] Dr. Spencer Rahman Work Phone: [facility] Work Phone: 12-24-2021 07:47-0400 Body height 172.[address] Spencer Rahman Work Phone: [facility] Work Phone: 12-24-2021 07:47-0400 Body mass index (BMI) [Ratio] 25.7 kg/m2 Dr. Spencer Rahman Work Phone: [facility] Work Phone: 12-24-2021 07:47-0400 Body weight 76.[address] Spencer Rahman Work Phone: [facility] Work Phone: 12-09-2021 07:24-0400 Body temperature 97 [degF] Dr. Spencer Rahman Work Phone: [facility] Work Phone: 12-09-2021 07:24-0400 Diastolic blood pressure 76 mm[Hg] Dr. Spencer Rahman Work Phone: [facility] Work Phone: 12-09-2021 07:24-0400 Heart rate 66 /min Dr. Spencer Rahman Work Phone: [facility] Work Phone: 12-09-2021 07:24-0400 Respiratory rate 16 /min Dr. Spencer Rahman Work Phone: [facility] Work Phone: 12-09-2021 07:24-0400 SaO2% (BldA) [Mass fraction] 97 % Dr. Spencer Rahman Work Phone: [facility] Work Phone: 12-09-2021 07:24-0400 Systolic blood pressure 105 mm[Hg] Dr. Spencer Rahman Work Phone: [facility] Work Phone: 12-09-2021 06:07-0400 Body height 175.[address] Spencer Rahman Work Phone: [facility] Work Phone: 12-09-2021 06:07-0400 Body mass index (BMI) [Ratio] 25 kg/m2 Dr. Spencer Rahman Work Phone: [facility] Work Phone: 12-09-2021 06:07-0400 Body weight [address] Spencer Rahman Work Phone: [facility] Work Phone: 11-10-2021 14:29-0400 Body mass index (BMI) [Ratio] 26.3 kg/m2 Dr. Spencer Rahman Work Phone: [facility] Work Phone: 11-10-2021 14:29-0400 Body temperature 97.4 [degF] Dr. Spencer Rahman Work Phone: [facility] Work Phone: 11-10-2021 14:29-0400 Body weight 80.[address] Spencer Rahman Work Phone: [facility] Work Phone: 11-10-2021 14:29-0400 Diastolic blood pressure 67 mm[Hg] Dr. Spencer Rahman Work Phone: [facility] Work Phone: 11-10-2021 14:29-0400 Heart rate 77 /min Dr. Spencer Rahman Work Phone: [facility] Work Phone: 11-10-2021 14:29-0400 Respiratory rate 16 /min Dr. Spencer Rahman Work Phone: [facility] Work Phone: 11-10-2021 14:29-0400 SaO2% (BldA) [Mass fraction] 97 % Dr. Spencer Rahman Work Phone: [facility] Work Phone: 11-10-2021 14:29-0400 Systolic blood pressure 105 mm[Hg] Dr. Spencer Rahman Work Phone: [facility] Work Phone: Encounters Encounter Date Encounter Type Care Provider Facility Start: 06-30-2024 End: 06-30-[address] Spencer Rahman MD Work Phone: [facility] Work Phone: Start: 06-30-2024 End: 06-30-[address] Spencer Rahman MD -[facility] Start: 06-30-2024 End: 06-30-2024 ambulatory Spencer Rahman Facility:[facility] Start: 04-25-2024 End: 04-25-2024 Patient encounter procedure Ciro DENNIS -[facility] Work Phone: Start: 04-25-2024 End: 04-25-2024 ambulatory Ciro DENNIS [facility] Start: 04-15-2024 End: 04-15-[address] Spencer Rahman MD -Ultrasound [facility] Work Phone: Start: 04-15-2024 End: 04-15-2024 ambulatory Spencer Rahman Facility:[facility] Start: 12-23-2023 End: 12-23-2023 ambulatory Gabo Cortez Facility:[facility] Start: 11-16-2023 ambulatory Spencer Rahman Facilit y:[facility] Start: 11-10-2023 End: 11-10-2023 ambulatory Spencer Rahman Facility:[facility] Start: 06-09-2023 End: 06-09-2023 ambulatory [facility] Work Phone: Start: 06-09-2023 End: 06-09-2023 Patient encounter procedure [facility]-LaboratoryRick césar Work Phone: Start: 04-22-2022 End: 04-22-[address] Spencer Rahman Work Phone: [facility] Work Phone: Start: 04-22-2022 End: 04-22-[address] Spencer Rahman Work Phone: [facility] Start: 02-05-2022 End: 02-05-[address] Spencer Rahman Work Phone: [facility] Start: 12-26-2021 End: 12-26-2021 Emergency department patient visit Dr. Spencer Rahman Work Phone: [facility]Emergency Department Start: 12-24-2021 End: 12-25-2021 Evaluation and management of inpatient Dr. Spencer Rahman Work Phone: [facility]-Medical Surgical 3 Start: 12-24-2021 End: 12-25-[address] Spencer Rahman Work Phone: [facility] Work Phone: Start: 12-09-2021 Non-patient / Non-visit Dr. Fabiola Rahman Work Phone: [facility] Start: 12-09-2021 End: 12-09-2021 Admission to same day surgery center Dr. Spencer Rahman Work Phone: [facility]-Endoscopy Start: 12-09-2021 End: 12-09-[address] Spencer Rahman Work Phone: [facility] Work Phone: Start: 11-10-2021 End: 11-10-[address] Spencer Rahman Work Phone: [facility] Start: 10-30-2021 End: 11-10-2021 Non-patient / Non-visit Dr. Spencer Rahman Work Phone: [facility] Start: 10-15-2021 End: 10-15-2021 ambulatory [facility] Work Phone: Start: 10-15-2021 End: 10-15-2021 Patient encounter procedure [facility]-Laboratory, [facility] Start: 07-15-2021 End: 07-15-2021 Patient encounter procedure [facility]Laboratory, Specimen Start: 07-15-2021 End: 07-15-2021 Patient encounter procedure [facility]Labor[facility] Start: 07-10-2021 End: 07-10-2021 Patient encounter procedure [facility]-Ultrasound, [facility] Start: 06-12-2021 End: 06-12-2021 Patient encounter procedure [facility]-Laboratory, [facility] Start: 06-10-2021 End: 06-10-2021 Patient encounter procedure [facility]-Cat Scan, [facility] Start: 05-19-2021 End: 05-19-2021 Patient encounter procedure [facility]-Laboratory, [facility] Start: 02-07-2021 End: 02-08-2021 Emergency department patient visit [facility] Start: 11-24-2020 End: 11-25-2020 ambulatory [facility] Start: 06-06-2020 End: 06-09-2020 ambulatory [facility] Start: 05-15-2020 End: 05-16-2020 ambulatory [facility] Start: 09-16-2019 End: 09-17-2019 ambulatory [facility] Procedures Date Procedure Procedure Detail Performing Clinician Start: 06-30-2024 Prostate specific an tigen measurement Dr. Spencer Rahman MD Work Phone: Comment on above: This test was perfor med using the [employer] tPSA method. Measured values of a patient sample can vary depending on the testing procedure used. PSA values determined on patient samples by different testing procedures cannot be used interchangeably. If there is a change in PSA assays while monitoring therapy, sequential testing should be performed to confirm baseline values. Start: 04-15-2024 US scan of bladder Dr. Spencer Rahman MD Work Phone: Start: 12-26-2021 CT angiography of he ad and neck Dr. Spencer Rahman Work Phone: Start: 12-24-2021 Cysto,TUR,Prostate,O lympus (Not Applicable) Dr. Spencer Rahman Work Phone: Start: 12-09-2021 EGD MOD (Not Applicable) Dr. Spencer Rahman Work Phone: Start: 07-10-2021 US scan of bladder Start: 06-10-2021 CT of chest Start: 09-16-2019 Hemoglobin glycosyla guerita a1c RITCHIE RODRIGUEZ Start: 09-16-2019 Lipid panel RITCHIE RODRIGUEZ Plan of Treatment Date Care Activity Detail Author Start: 12-25-2021 Patient discharge [facility] Work Phone: Start: 12-25-2021 Removal of urinary catheter [facility] Work Phone: Start: 12-24-2021 Following clinical p athway protocol [facility] Work Phone: Start: 12-24-2021 Admission procedure [facility] Work Phone: Start: 12-24-2021 Deep breathing and coughing exercises [facility] Work Phone: Start: 12-24-2021 Incentive spirometry [facility] Work Phone: Start: 12-24-2021 Irrigation of urinar y bladder [facility] Work Phone: Start: 12-24-2021 Measuring intake and output [facility] Work Phone: Start: 12-24-2021 Patient education [facility] Work Phone: Start: 12-24-2021 Provision of activit y privileges [facility] Work Phone: Start: 12-24-2021 Taking patient vital signs [facility] Work Phone: Start: 12-24-2021 Vital signs measurements [facility] Work Phone: Start: 12-24-2021 [facility] Work Phone: Start: 12-09-2021 Egd transoral biopsy single/multiple EGD BIOPSY SINGLE/MULTIPLE [facility] Work Phone: Start: 12-09-2021 Patient discharge [facility] Work Phone: Patient Education [facility] Work Phone: Patient referral [facility] Work Phone: Payers Date Payer Category Payer Medicare [id number] 2023 Medicare [id number] 2023 Self-pay [id number] 2020 Unknown [id number] 2015 Unknown [id number] 1960 Unknown [id number] 2.16.8 [id number] 1960 Unknown [id number] 2.16.8 [id number] 1960 Unknown [id number] 2.16.8 [id number] 1960 Unknown [id number] 2.16.8 [id number] Unknown [id number] 2.16.8 [id number] Unknown [id number] 2.16.8 [id number] Unknown [id number] 2.16.8 [id number] Unknown [id number] 2.16.8 [id number] Unknown [id number] 2.16.8 [id number] Unknown [id number] 2.16.8 [id number] Unknown [id number] 2.16.8 [id number] Social History Date Type Detail [facility] Work Phone: Start: 1960 Sex Assigned At Male [facility] Start: 11-10-2021 End: 02-05-2022 Tobacco smoking status [facility] Unknown if ever smoked [facility] Start: 04-25-2024 [facility] Goals Date Patient Goal Desired Activity /State Functional Status Date Assessment Result Facility 12-25-2021 Functional status Ambulates [facility] Work Phone: Mental Status Date Assessment Result Facility 12-26-2021 Cognitive function Voice/Name [facility] Work Phone: 12-25-2021 Cognitive function Level Of Cons ciousness Awake;Alert;Appropriate;Follow s Commands [facility] Work Phone: 12-24-2021 Cognitive function Voice/Name [facility] Work Phone: 12-09-2021 Cognitive function Voice/Name [facility] Work Phone: Clinical Note 12-23-2023 Note Date & Type Note Facility 12-23-2023 Note [facility] Medical Records Department [address] [place] [address] History Physical Exam 12/23/23 0808 MR#: [id number] Acct: [id number] Name: LIA BUSTAMANTE Rep #: [id number] : 1960 63 From: Gabo Friend DO PCP: Dr. Spencer Rahman MD Status:[facility] Location: [place] [address] HPI - General General Date of Admission: 12/23/23 Date of Service: 12/23/23 Chief Complaint: Surveillance colonoscopy HPI Narrative LIA BUSTAMANTE, is a 63 M who presents today for surveillance colonoscopy. He had a colonoscopy back in 2019 in [facility]. He did have adenomatous polyps at that time. He also has a past medical history of gastroesophageal reflux disease complicated by Esquivel's esophagus on PPI therapy, hypertension, hyperlipidemia currently controlled with medical therapy. 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) COPD (chronic obstructive pulmonary disease) Wears glasses Wears partial dentures Prostate disease High cholesterol History of hiatal hernia Gastric reflux Former smoker Home Medications ???Medication ???Instructions ???Recorded ???Last Taken ???Type atorvastatin 10 mg tablet 10 mg PO QHS HLD 10/29/21 12/23/21 History calcium carbonate 600 mg PO DAILY SUPPLEMENT 10/29/21 12/23/21 History pantoprazole 40 mg tablet,delayed 40 mg PO DAILY GERD 10/29/21 12/24/21 05:00 History release sildenafil 50 mg tablet 50 mg PO DAILY PRN Erectile 10/29/21 12/23/21 History Dysfunction Allergy/AdvReac Type Severity Reaction Status Date / Time Penicillins Allergy Rash Verified 12/22/23 08:21 Family History Father Cancer lung Surgical History (Updated 12/22/23 @ 08:25 by Kaitlin Rodriguez) Hx of transurethral resection of prostate History of esophagogastroduodenoscopy (EGD) Hx of colonoscopy Hx of inguinal hernia repair Hx of vasectomy Social History (Updated 11/16/23 @ 12:40 by Maribel Sinclair) household members: spouse current occupational status: retired Smoking Status: Former smoker substance use type: does not use ROS Review of Systems ROS Unobtainable: other Constitutional Constitutional: Denies fatigue, fever(s), poor appetite, weight gain or weight loss ENT HEENT: Denies mouth lesions Cardiovascular Cardiovascular: Denies abdominal bloating, abdominal edema or abdominal pain Respiratory/Chest Respiratory/Chest: Denies change in mental status, change in phlegm color, chest congestion or chest tightness Gastrointestinal Gastrointestinal: Denies belching, bloating, change in bowel habits, change in stool character, chewing difficulty, coffee ground emesis, constipation, cramping, diarrhea, dyspepsia, dysphagia, early satiety, excessive flatus, fecal incontinence, heartburn, hematemesis, hematochezia, hemorrhoids, loose stools, melena, nausea, odynophagia, rectal bleeding, tenesmus, vomiting or weight changes Genitourinary Genitourinary: Denies abdominal discomfort, burning urination or itching Musculoskeletal Musculoskeletal: Reports as per HPI; Denies muscle weakness or myalgias Integumentary Integumentary: Denies jaundice Neurologic Neurologic: Denies lack of coordination or weakness Psychiatric Psychiatric: Denies confusion, depression, memory loss, mood swings, paranoia or suicidal ideation Endocrine Endocrinology: Denies systems reviewed and no addt'l complaints, except as documented Hematologic/Lymphatic Hematologic/Lymphatic: Denies anemia, easy bleeding, easy bruising or lymphadenopathy Allergic/Immunologic Allergic/Immunologic: Denies systems reviewed and no addt'l complaints, except as documented Physical Exam Const alert General Appearance: cooperative Orientation / Consciousness: oriented to person HEENT hearing grossly normal bilaterally Head and Scalp: normal to inspection Face and Sinus: face symmetric Nose: external nose normal Mouth: oral and palatal mucosa normal Eyes conjunctivae normal General Eye: normal appearance of both eyes Neck full ROM General: normal visual inspection Lymph Lymphatic: no lymphadenopathy noted Chest inspection of chest normal and palpation of chest normal Chest: symmetrical chest wall rise Resp normal respiratory effort Effort and Inspection: able to speak in complete sentences Cardio regular rate GI non-distended Percussion: normal to percussion Rectal Exam: deferred Neuro Speech: speech normal Gait (Neuro): normal gait Assessment Plan Assessment/Plan (1) Personal history of colonic polyps: PLAN: He will undergo surveillance colonoscopy. He was explained alternatives, risk, benefits include not withstanding bleeding, infection, sepsis, perforation, need for emergent urgent . He will hav (more content not included)... [facility] Discharge instructions 12-26-2021 Note Date & Type Note Facility 12-26-2021 Hospital Discharg e instructions Additional Instructions Resume daily for 7 days start tomorrow. Acyclovir 5 times a day till gone. Tape your right eye closed at night to keep it from drying out or causing an ulcer. Artificial tears to help it from drying out. 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 This should progressively improve over the next 1 to 2 weeks. Sometimes it takes longer to resolve. Follow-up with your doctor as needed. [facility] Work Phone: Evaluation note Note Date & Type Note Facility Evaluation note No assessment information availa ble [facility] Work Phone: Evaluation note Note Date & Type Note Facility Evaluation note Diagnosis Onset Date 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 acute Hiatal hernia acute Personal history of colonic polyps acute [facility] Work Phone: Evaluation note Note Date & Type Note Facility Evaluation note Diagnosis Onset Date 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 acute GERD (gastroesophageal reflux disease) acute Hiatal hernia acute [facility] Work Phone: Hospital Discharge instructions Note Date & Type Note Facility Hospital Discharge instructions Additional Instructions Implant Used?: No [facility] Work Phone: Reason for referral (narrative) Note Date & Type Note Facility Reason for referral (narrative) No reason for referral information available [facility] Work Phone: Summary Purpose Family History No Family History Records Found Relationship Condition Age at Onset Recorded Date/T jennifer father Malignant neoplasm Unknown Advance Directives No Advanced Directives Records Found Advance Directive Response Recorded Date/ Time Living Will Yes October 29 10:10am Power of Store Administrative Assistant Yes October 29, 2021 10:10am Advance Directive Response Recorded Date/ Time Name of Medical Power of Store Administrative Assistant Joann [place] December 24, 2021 11:16am Living Will Yes December 24 11:16am Power of Store Administrative Assistant Yes December 24, 2021 11:16am Advance Directive Response Recorded Date/ Time Name of Medical Power of Store Administrative Assistant Joann [place] December 24, 2021 11:16am Name of Medical Power of Store Administrative Assistant December 26, 2021 10:12am Living Will Yes December 26 10:12am Power of Store Administrative Assistant Yes December 26, 2021 10:12am Advance Directive Response Recorded Date/ Time Living Will Yes December 26 9:12am Power of Store Administrative Assistant Yes December 26, 2021 9:12am Advance Directive Response Recorded Date/ Time Living Will Yes December 26 10:12am Power of Store Administrative Assistant Yes December 26, 2021 10:12am Chief Complaint and Reason for Visit Chief Complaint NICOTINE DEP Chief Complaint NICOTINE DEP Retention of urine, unspecified Viral infection, unspecified Chief Complaint Retention of urine, unspecified Viral infection, unspecified Chief Complaint BARRETTS BARRETTS Reason for Visit 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 Hiatal hernia Personal history of colonic polyps Chief Complaint BARRETTS BARRETTS CYSTO TURP OLYMPUS Reason for Visit 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 Hiatal hernia Personal history of colonic polyps Chief Complaint BARRETTS BARRETTS CYSTO TURP OLYMPUS neuro Reason for Visit 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 Hiatal hernia Personal history of colonic polyps Chief Complaint HIATAL HERNIA Reason for Visit 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 GERD (gastroesophageal reflux disease) Hiatal hernia Chief Complaint Admit Date BPH INCOMPLETE EMPTYING April 15 10:29am DOT DRUG SCRN/ SELF PAY April 25, 2024 9:48am Additional Source Comments (unrecognized sect ion and content) No Status Records FoundNo Status Records FoundNo Status Records FoundNo Status Records Found INFORMATION SOURCE (unrecogn ized section and content) DATE CREATED AUTHOR 06/12/2020 [facility] DATE CREATED AUTHOR AUTHOR'S ORGANIZ ATION 11/26/2020 [facility] DATE CREATED AUTHOR AUTHOR'S ORGANIZ ATION 02/13/2021 [facility] DATE CREATED AUTHOR AUTHOR'S ORGANIZ ATION 09/19/2024 [facility] Goals (unrecognized section and content) Goals may be documented in a n alternate sectionGoals may be documented in an alternate sectionGoals may be documented in an alternate sectionGoals may be documented in an alternate sectionGoals may be documented in an alternate sectionGoals may be documented in an alternate sectionGoals may be documented in an alternate sectionGoals may be documented in an alternate section Care Teams (unrecognized sec tion and content) Team Status: Active Member Role Status Dates Dr. Spencer Rahman MD Primary Care Provider Active Team Status: Inactive Member Role Status Dates Dr. Spencer Rahman MD Primary Care Provider, Referr ing Provider Active Dr. Luis Eduardo Delcid MD Attending Provider Active Team Status: Inactive Member Role Status Dates Dr. Spencer Rahman MD Primary Care Pr ovider, Attending Provider, Referring Provider Active Team Status: Inactive Member Role Status Dates Dr. Spencer Rahman MD Primary Care Provider, Attend ing Provider Active Team Status: Inactive Member Role Status Dates Dr. Spencer Rahman MD Primary Care Provider Active Start: April 15, 2024 End: April 15, 2024 Dr. Spencer Rahman MD Attending Provider Active Start: April 15, 2024 End: April 15, 2024 Dr. Spencer Rahman MD Referring Provider Active Start: April 15, 2024 End: April 15, 2024 Team Status: Inactive Member Role Status Dates Dr. Spencer Rahman MD Primary Care Provider Active Start: April 25, 2024 End: April 25, 2024 Dr. Spencer Rahman MD Referring Provider Active Start: April 25, 2024 End: April 25, 2024 Ciro DENNIS PA Attending Provider Active Start: April 25, 2024 End: April 25, 2024 Team Status: Inactive Member Role Status Dates Dr. Spencer Rahman MD Primary Care Provider Active Start: June 30, 2024 End: June 30, 2024 Dr. Spencer Rahman MD Attending Provider Active Start: June 30, 2024 End: June 30, 2024 Dr. Spencer Rahman MD Referring Provider Active Start: June 30, 2024 End: June 30, 2024 FOR RECORDS PERTAINING TO PATIENTS WHO ARE [...] BE BASED ON THE PRIMARY CLINICAL RECORDS. [employer] provides no warranty or guarantee of the accuracy or completeness of information in this document.
[2024-11-14 18:48] VITALS: BP 110/62; PULSE 58; RESP 14; TEMP 37; O2SAT 96
== END 2024-11-14 18:50 | disposition home or self-care (01) ==
PROVIDERS: Emergency Provider Emergency Medicine; PCP Family Medicine; Visit Provider Emergency Medicine
DX: J10.1 Influenza due to other identified influenza virus with other respiratory manifestations (principal); J44.9 Chronic obstructive pulmonary disease, unspecified; B34.9 Viral infection, unspecified; Z87.891 Personal history of nicotine dependence
CPT/HCPCS: 71046; 87631; 93005; 94640; 99283

== ENCOUNTER → 2024-12-14 | Outpatient (CLI) | payer MEDICARE, SELFPAY ==
[2024-12-14 10:24] LABS: Hematocrit 42.7 % (40-54); Hemoglobin 14.2 g/dL (13.0-16.5); Immature Granulocytes Count 0.020 X10^3/uL (0.0-0.0); Mean Corp Hgb Conc 33.3 g/dL (32-36); Mean Corpuscular Volume 84.9 fL (80-94); Mean Platelet Vol. 9.9 fl (6.2-12.0); NRBC Flagged by Analyzer 0 % (0-5); Platelet Count 168 K/mm3 (150-450); RBC Distribution Width CV 13.5 % (11.6-14.6); RBC Distribution Width SD 41.3 fl (35.1-43.9); Red Blood Count 5.03 M/mm3 (4.6-6.2); White Blood Count 6.4 K/mm3 (4.4-11.0)
[2024-12-14 10:55] LABS: Cholesterol 149 mg/dL (<=200); Low Density Lipoprotein Calc. 91 mg/dL; Triglycerides 105 mg/dL; Very Low Density Lipoprotein 21 mg/dL (5-40); cholesterol:hdl ratio screen 3.86
[2024-12-14 11:52] LABS: AST(SGOT) 20 U/L (<=37); Alanine Aminotransfer ALT/SGPT 23 U/L (<=46); Albumin, Serum 4.0 g/dL (3.4-4.8); Alkaline Phosphatase 74 U/L (40-129); Anion Gap 9 (5-15); BUN 14 mg/dL (4-19); BUN/Creat Ratio 16.0 RATIO (10-20); Calcium,Total 9.4 mg/dL (7.6-11.0); Carbon Dioxide 25.2 mmol/L (21.0-32.0); Chloride 106 mmol/L (98-108); Globulin 2.9 g/dL (2.2-4.2); Glucose 97 mg/dL (70-99); Potassium 4.3 mmol/L (3.3-5.1)
[2024-12-14 12:25] LABS: Microalbumin,Random Urine < 12.0 mg/L (<20 mg/L)
== END | disposition home or self-care (01) ==
LOC: MFPLAB 08:22
PROVIDERS: PCP Family Medicine; Visit Provider Family Medicine
DX: E78.5 Hyperlipidemia, unspecified (principal); R73.02 Impaired glucose tolerance (oral)
CPT/HCPCS: 36415; 80053; 80061; 82043; 83036; 85025

== ENCOUNTER 2025-01-26 09:19 | Day surgery (SDC) | payer MEDICARE, SELFPAY ==
[2025-01-26] VITALS (8 sets, daily range): BP systolic 83–103; BP diastolic 55–69; PULSE 63–72; RESP 9–16; TEMP 36.1–36.6; O2SAT 93–99; BMI 26.1
--- NOTE | 2025-01-26 09:51 | PRE.ANES_ITS ---
ASA Classification* ASA Classification ASA Classification: 2 Assessment & Plan Anesthesia* Anesthesia Assessment Anesthesia Assessment: Discussed sedation and/or anesthesia options, risks, benefits, and alternatives with patient/parents/legal guardian/POA. Questions invited. The patient/parents/legal guardian/POA seems to understand and agrees to proceed with anesthesia plan. Reviewed the physical assessment, medical history, allergy history and patient home medications list prior to surgery/procedure/anesthetic and documented any changes. Performed airway and anesthesia risk assessments. Anesthesia Type Anesthesia Type: MAC Anesthesia Focused Assessment* Airway Assessment Mouth opens: >3 cm Mallampati Score: II Labs Anesthesia Preop lab: CBC WBC, (4.4-11.0) 6.4 K/mm3 12/14/24, 08: RBC, (4.6-6.2) 5.03 M/mm3 12/14/24, 08:22 Hgb, (13.0-16.5) 14.2 g/dL 12/14/24, 08: Hct, (40-54) 42.7 % 12/14/24, 08:22 Plt Count, (150-450) 168 K/mm3 12/14/24, 08:22 CHEMISTRY Potassium, (3.3-5.1) 4.3 mmol/L 12/14/24, 08:22 Sodium, (133-145) 141 mmol/L 12/14/24, 08:22 BUN, (4-19) 14 mg/dL 12/14/24, 08:22 Creatinine, (0.70-1.20) 0.88 mg/dL 12/14/24, 08:22 Glucose, (70-99) 97 mg/dL 12/14/24, 08:22 POC Glucose, (74-106) 110 mg/dL H 12/26/21, 10:45 TSH, (0.358-3.74) 1.50 uIU/mL 05/19/21, 16:06 COAG Pre-Assessment Diagnosis/Proposed Procedure Planned Operative Procedure(s): EGD Anesthesia History 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 When Was Last Pacemaker Check QUESTION #4 FULL TEXT: You/Your Family Experience fever (hyperthermia) with Anesthesia Last Oral Intake Last Oral intake: Last Oral Intake NPO since Meds taken in AM with sips of water? 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 Female No 01/24/25 13:30 HX of Motion Sickness No 01/24/25 13:30 HX of N/V After Surgery No 01/24/25 13:30 Non-Smoker Yes 01/24/25 13:30 Duration of Surgery greater No 01/24/25 13:30 than 60 minutes Number of Risk Factors 1 01/24/25 13:30 PONV Score Low Risk 01/24/25 13:30 Height & Weight Height & Weight: Anesthesia: Height & Weight Height 5 ft 9 in 01/24/25 10:07 Respiratory Assessment Respiratory Assessment - commercial baking teacher: Respiratory Tract Infection Hx - commercial baking teacher Hx Respiratory Tract Infection No 01/24/25 13:30 STOP Sleep Apnea STOP Sleep Apnea - commercial baking teacher: STOP Sleep Apnea - commercial baking teacher Hx Hypertension No 01/24/25 13:30 Hx Sleep Apnea No 01/24/25 13:30 CPAP BIPAP Do you snore loudly (louder No 01/24/25 13:30 than talking or can be heard Do you often feel tired/ No 01/24/25 13:30 fatigued/ sleepy during daytime? Has anyone observed you stop No 01/24/25 13:30 breathing during sleep? STOP Results Negative 01/24/25 13:30 QUESTION #5 FULL TEXT : Do you snore loudly (louder than talking or can be heard through closed doors)? 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 Specify any problems Hx of Preganancy in last 3 N/A 01/24/25 13:30 Months Nurse Filling Out Transfusion VLEHMAN 01/24/25 13:30 & Questions: Date: 01/24/25 01/24/25 13:30 Time: 13:34 01/24/25 13:30 Patient unable to answer at this time (ie. 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) COPD (chronic obstructive pulmonary disease) Wears glasses Wears partial dentures Prostate disease High cholesterol History of hiatal hernia Gastric reflux Former smoker Home Medications ?Medication ?Instructions ?Recorded ?Last Taken ?Type atorvastatin 10 mg tablet 10 mg PO QHS HLD 10/29/21 History pantoprazole 40 mg tablet,delayed 40 mg PO DAILY GERD 10/29/21 01/26/25 History release sildenafil 50 mg tablet 50 mg PO DAILY PRN Erectile 10/29/21 12/23/21 History Dysfunction calcium 600 mg (as carbonate)-vit 1 tab PO DAILY 01/24 Unknown History D3 20 mcg (800 unit) chewable tablet (Caltrate plus D) tamsulosin 0.4 mg capsule 0.4 mg PO DAILY 01/24/2507/16 History Allergy/AdvReac Type Severity Reaction Status Date / Time Penicillins Allergy Rash Verified 01/26/25 09:46 Family History Father Cancer lung Surgical History Hx of transurethral resection of prostate History of esophagogastroduodenoscopy (EGD) Hx of colonoscopy Hx of inguinal hernia repair Hx of vasectomy Social History household members: spouse current occupational status: retired Smoking Status: Former smoker substance use type: does not use Review of Systems (Anesthesia) ROS Narrative System reviewed and no additional complaints, except as documented.
[2025-01-26] MEDS: Lactated Ringers 1,000 ML 15 ML IV (09:55)
--- NOTE | 2025-01-26 10:27 | HP.PCM_ITS ---
History and Physical Date of Admission: 01/26/25 Intake Vital Signs 11/15/2515:43 01/24/2510:07 Height 5 ft 9 in 5 ft 9 in Weight: 178 lb BMI 26.2 BP 105/68 Blood Pressure Location Rt brachial Position Sitting Respiration 18 Pulse 72 Pulse Source Monitor Pulse Oximetry (%) 96 Oxygen Delivery Method room air Intake Visit Reasons: Esophagogastroduodenoscopy Chief Complaint: EGD/barretts Is patient in pain?: No Allergies Penicillins Allergy (Verified 01/24/25 10:07) Rash Medications ?Medication ?Instructions ?Recorded ?Confirmed ?Type atorvastatin 10 mg tablet 10 mg PO QHS HLD 10/29/21 01/24/25 Histo ry pantoprazole 40 mg tablet,delayed 40 mg PO DAILY GERD 10/29/21 01/24/25 Hi story release sildenafil 50 mg tablet 50 mg PO DAILY PRN Erectile 10/29/2105/16 History Dysfunction calcium 600 mg (as carbonate)-vit 1 tab PO DAILY 01/24/25 01/24/25 History D3 20 mcg (800 unit) chewable tablet (Caltrate plus D) tamsulosin 0.4 mg capsule 0.4 mg PO DAILY 01/24/25 01/24/25 Histor y Have you fallen in the past year?: No PFSH Medical History Non-smoker 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 He is here to discuss surveillance EGD. His last EGD was 5 years ago. He reports no symptoms as long as he takes his PPI. ROS General General: No weight change, appetite, fatigue, colon cancer, breast cancer or weakness HEENT HEENT: No difficulty swallowing, eye injury, eye surgery, swollen glands or hoarseness Endo Endocrine: No thyroid disease, diabetes mellitus, thyroid cancer, Hair loss, heat intolerance or cold intolerance Skin Skin: No rash or changing moles Musc Musculoskeletal: No back problems, arthritis, rheumatoid arthritis, gout or joint pain Cardio Cardiovascular: No murmur, pacemaker, heart disease, atrial fibrillation, high blood pressure, heart attack, heart stent, palpitations, shortness of breath with exertion or chest pain Psych Psychiatric: No depression, anxiety or hearing voices Resp Respiratory: No shortness of breath, No sleep apnea, No cough, Yes COPD, No asthma, No emphysema and No wheezing Gastro Gastrointestinal: No abdominal pain, No nausea or vomiting, No diarrhea, No constipation, No blood in stool, Yes acid reflux, No hemorrhoids, No ulcers, No gallbladder problem and No black,tarry stools Bill Hematologic: No blood thinners, No blood disorders, No bleeding, No anemia and No blood clots Neuro Neurologic: No system reviewed and no additional complaints, except as documented, No as per HPI, No abnormal gait, No abnormal hearing, No abnormal movements, No abnormal speech, No behavioral changes, No burning sensations, No confusion, No convulsions, No disequilibrium, No dizziness, No localized weakness, No frequent falls, No headache(s), No lack of coordination, No loss of vision, No memory loss, No numbness, No other visual disturbances, No radicular pain, No restless legs, No sensory deficit, No syncope, No tingling, No tremor(s), No weakness and No other Exam Const General: cooperative Orientation: alert and oriented x3 [facility] Head: normal to inspection Neck Neck: normal visual inspection and full ROM Chest Chest palpation & inspection: normal inspection of the chest Resp Effort & Inspection: normal respiratory effort Auscultation: clear to auscultation bilaterally Cardio Rate: regular rate Rhythm: regular rhythm GI Inspection: non-distended Palpation: soft and nontender Skin General: no rashes or lesions noted Neuro General: patient alert and patient oriented x3 Extrem General: full ROM Psych Appearance: grossly normal Mental Status: mental status grossly normal Assessment and Plan Assessment and Plan (1) 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: Status: Acute Plan: Plan for surveillance EGD for Esquivel's esophagus. I explained endoscopy in detail to the patient. I explained the risks including but not limited to stroke or heart attack with anesthesia, perforation of the GI tract, bleeding, infection. I explained that any of these could necessitate further emergency surgery. The patient understands and all questions were answered sufficiently. The patient wishes to proceed with procedure. Jorge Grimes MD Pager: [facility] [address] [place] [address] [address] [place] [address] Office: I have examined the patient and the H&P has been reviewed. There are no clinical changes since date of exam.
--- NOTE | 2025-01-26 10:30 | EGD_PTH ---
PATIENT: LIA BUSTAMANTE LOC: EN U#:[id number] AGE/SX: 65/M ROOM: RE01/26/[address]: Dr. Jorge Grimes MD : 1960 BED: DIS: 01/26/2025 SPEC #: [id number] RECD: 01/26/25 11:35 STATUS: ROBERTO GUDELIA #: [id number] GIL: 01/26/25 10:[address]: Jorge Grimes DEPT: SURGICAL PATHOLOGY RECD BY: Francisca Phillips ENTERED: 01/26/25 13:22 SP TYPE: EGD [facility]SY [facility] DR: Dr. Spencer Rahman MD Tissues: Gastric mucous membrane Procedures: Surgery Specimen Level IV HEADER OPERATION: EGD with biopsies PRE-OP DIAGNOSIS: 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 TISSUE SUBMITTED: A- GE junction biopsy MICROSCOPIC DIAGNOSIS A. Esophagus, GE junction, biopsy: - Squamous mucosa with reactive changes and > 50 eosinophils per high power field. - Columnar mucosa negative for goblet cell metaplasia. - Negative for dysplasia. MICROSCOPIC DESCRIPTION Slides are reviewed. GROSS DESCRIPTION A. Received in fixative is one container labeled with the patient's name and designated GE junction biopsy. The specimen consists of two irregular fragments of hooker tissue, each measuring 0.5 cm. The specimen is totally submitted in one cassette. CA 01/26/2025 CPT:32893
[2025-01-26] MEDS: Lidocaine 1% (5 ml sdv) 5 ML Vial IV (10:39)
--- NOTE | 2025-01-26 10:48 | PCM.POST.ANE ---
Anesthesia: Postop Eval I Current Vital Signs Temperature: 97 F Pulse Rate: 72 Blood Pressure: 90/60 Respiratory Rate: 9 Pulse Ox: 99 Oxygen Delivery Method: Room Air Assessment Airway patent: Yes Spontaneous unlabored respirations: Yes Mental status: Awake and Calm nausea: No Vomiting: No Anesthesia Complication: No Fluid Hydration Crystalloid volume administer (ml): 200 Total IV fluid infused: 200 Progress Note Anesthesia document: Postop Eval 1 completed: Yes
--- NOTE | 2025-01-26 10:50 | OP.EGD_ITS ---
Patient Name: Tacho Bustillos Procedure Date: 01/26/2025 10:34 AM Date of : 1960 Age: 65 Procedure: Upper GI endoscopy Indications: Follow-up of Esquivel's esophagus Providers: Jorge Grimes MD Medicines: Propofol per Anesthesia Patient Profile: This is a 65 year old male. Refer to note in patient chart for documentation of history and physical. Complications: No immediate complications. Estimated blood loss: Minimal. Procedure: Pre-Anesthesia Assessment: - Prior to the procedure, a History and Physical was performed, and patient medications and allergies were reviewed. The patient's tolerance of previous anesthesia was also reviewed. The risks and benefits of the procedure and the sedation options and risks were discussed with the patient. All questions were answered, and informed consent was obtained. Prior Anticoagulants: The patient has taken no anticoagulant or antiplatelet agents. After reviewing the risks and benefits, the patient was deemed in satisfactory condition to undergo the procedure. After obtaining informed consent, the endoscope was passed under direct vision. Throughout the procedure, the patient's blood pressure, pulse, and oxygen saturations were monitored continuously. The gastroscope was introduced through the mouth, and advanced to the second part of duodenum. The upper GI endoscopy was accomplished without difficulty. The patient tolerated the procedure well. Scope In: 10:44:00 AM Scope Out: 10:47:19 AM Total Procedure Duration Time 0 hours 3 minutes 19 seconds Findings: The esophagus and gastroesophageal junction were examined with white light from a forward view and retroflexed position. There were esophageal mucosal changes secondary to established short-segment Esquivel's disease. These changes involved the mucosa extending to the Z-line. [place]-colored mucosa was present. The maximum longitudinal extent of these esophageal mucosal changes was 2 cm in length. Mucosa was biopsied with a cold forceps for histology in a targeted manner at the gastroesophageal junction. One specimen bottle was sent to pathology. The stomach was normal. The examined duodenum was normal. Impression: - Esophageal mucosal changes secondary to established short-segment Esquivel's disease. Biopsied. - Normal stomach. - Normal examined duodenum. Recommendation: - Discharge patient to home. - Resume previous diet. - Continue present medications. - Await pathology results. - Repeat upper endoscopy in 3 years for surveillance of Esquivel's esophagus. Procedure Code(s): --- Professional --- 96837, Esophagogastroduodenoscopy, flexible, transoral; with biopsy, single or multiple Diagnosis Code(s): --- Professional --- K22.70, 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 CPT copyright 2021 [employer]. All rights reserved. The codes documented in this report are preliminary and upon junior electrical engineer review may be revised to meet current compliance requirements. Jorge Grimes MD 01/26/2025 10:50:24 AM This report has been signed electronically. Number of Addenda: 0 Note Initiated On: 01/26/2025 10:34 AM
--- NOTE | 2025-01-26 10:50 | OP.PROVAT_ITS ---
01/26/2025 Spencer Rahman [address] [place] [address] Re : Upper GI endoscopy procedure for T[facility] Dear Dr. Rahman This procedure was performed on Sunday, January 26, 2025. My impressions and recommendations are as follows: Impressions : - Esophageal mucosal changes secondary to established short-segment Esquivel's disease. Biopsied. - Normal stomach. - Normal examined duodenum. Recommendations : - Discharge patient to home. - Resume previous diet. - Continue present medications. - Await pathology results. - Repeat upper endoscopy in 3 years for surveillance of Esquivel's esophagus. My findings are described in the full procedure note, which is enclosed. If I can be of further assistance, please feel free to contact me at Doctor phone number(s): , Work: . Sincerely, Jorge Grimes MD 01/26/2025 10:50:24 AM This report has been signed electronically.
--- NOTE | 2025-01-26 11:47 | POSTOPAN2_ITS ---
Anesthesia Postop Eval I Sum Postop Eval Completion status Anesthesia document: Postop Eval 1 completed: Yes Anesthesia Postop Eval I Summary Anesthesia Postop Eval I Summary: Anesthesia Postop Eval I: Assessment Summary Airway patent Yes 01/26/25 10:49 SIDING APPLICATOR.[email or web address] Spontaneous unlabored Yes 01/26/25 10:49 SIDING APPLICATOR.MDOT respirations Mental status Awake,Calm 01/26/25 10:49 SIDING APPLICATOR.MDOT nausea No 01/26/25 10:49 SIDING APPLICATOR.MDOT Vomiting No 01/26/25 10:49 SIDING APPLICATOR.MDOT Anesthesia Postop Eval I: Fluid Summary Crystalloid volume administer 200 01/26/25 10:49 SIDING APPLICATOR.MDOT (ml) Colloids volume administered ( ml) Blood Product volume administered (ml) Total IV fluid infused 200 01/26/25 10:49 SIDING APPLICATOR.MDOT Anesthesia Postop Eval I: Summary Notes Anesthesia Complication No 01/26/25 10:49 SIDING APPLICATOR.MDOT Anesthesia Complication Comment: Post-operative progress note Anesthesia: Postop Eval II Evaluation Mental status: Awake Pain Level: 0 nausea: No Vomiting: No
--- NOTE | 2025-01-26 11:47 | PCM.POSTANE2 ---
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.MDOT Spontaneous unlabored Yes 01/26/25 10:49 LAMINATE FLOOR INSTALLER.MDOT respirations Mental status Awake,Calm 01/26/25 10:49 LAMINATE FLOOR INSTALLER.MDOT nausea No 01/26/25 10:49 LAMINATE FLOOR INSTALLER.MDOT Vomiting No 01/26/25 10:49 LAMINATE FLOOR INSTALLER.MDOT Anesthesia Postop Eval I: Fluid Summary Crystalloid volume administer 200 01/26/25 10:49 LAMINATE FLOOR INSTALLER.MDOT (ml) Colloids volume administered ( ml) Blood Product volume administered (ml) Total IV fluid infused 200 01/26/25 10:49 LAMINATE FLOOR INSTALLER.MDOT Anesthesia Postop Eval I: Summary Notes Anesthesia Complication No 01/26/25 10:49 LAMINATE FLOOR INSTALLER.MDOT Anesthesia Complication Comment: Post-operative progress note Anesthesia: Postop Eval II Evaluation Mental status: Awake Pain Level: 0 nausea: No Vomiting: No
== END 2025-01-26 11:50 | disposition home or self-care (01) ==
LOC: EN 09:21 → AC 09:31
PROVIDERS: PCP Family Medicine; Referring Provider Surgery; Visit Provider Surgery
PROC: 0DJ08ZZ Inspection of Upper Intestinal Tract, Via Natural or Artificial Opening Endoscopic (ICD-10-PCS; CPT 43235; principal; 2025-01-26 10:25)
DX: K22.70 Barrett's esophagus without dysplasia (principal); J44.9 Chronic obstructive pulmonary disease, unspecified; E78.00 Pure hypercholesterolemia, unspecified; Z87.891 Personal history of nicotine dependence; Z79.899 Other long term (current) drug therapy; K21.9 Gastro-esophageal reflux disease without esophagitis
CPT/HCPCS: 43239; 88305